=== PATIENT | female | born 1965 | race Caucasian/White ===

== ENCOUNTER 2025-06-06 15:30 | Inpatient (IN) | payer MEDICAID, SELFPAY ==
[2025-06-06] VITALS (19 sets, daily range): BP systolic 93–141; BP diastolic 43–122; BMI 32.0; BMI 31.6
[2025-06-06] MEDS: LR 1000 IV (12:16)
[2025-06-06 12:27] LABS: Hematocrit 20.2 % (37.0-47.0); Hemoglobin 6.5 g/dL (12.0-16.0); Mean Corp Hgb Conc. 32.2 g/dL (33.0-37.0); Mean Corpuscular Volume 112.8 fL (81.0-99.0); Platelet Count 364 10^3/uL (130-400); Red Cell Dist. Width 21.2 % (11.5-14.5)
[2025-06-06 12:46] LABS: ALT (SGPT) 61 U/L (0-35); AST (SGOT) 185 U/L (14-36); Albumin 4.0 g/dl (3.5-5.0); Alkaline Phosphatase 168 U/L (38-126); Blood Urea Nitrogen 54 mg/dl (7-17); Calcium 7.6 mg/dl (8.4-10.2); Carbon Dioxide 18 mmol/L (22-30); Chloride 115 mmol/L (98-107); Estimated Creatinine Clearance 34 ml/min; Glucose 153 mg/dl (70-99); Potassium 4.1 mmol/L (3.5-5.1); Sodium 149 mmol/L (135-145); Total Protein 7.5 g/dl (6.3-8.2); eGFR 32.06
--- NOTE | 2025-06-06 13:09 | ED.GENMED ---
History of Present Illness
General
Chief Complaint: Failure to Thrive
Time Seen by Provider: 06/06/25 11:45
History of Present Illness
History of Present Illness:
59-year-old female with history of stomach ulcers and status post gastric bypass in 1998 presents to the emergency department upon referral from the [facility] on [facility] due to poor functional status. She apparently had a fall yesterday in her
bathroom and laid facedown on the bathroom floor for over 12 hours before being identified. She reports bilateral knee pain but denies any other complaints as a result. Denies abdominal pain, chest pain, or shortness of breath.
Past History
Past History
ED Past Medical History: HTN and Other (Bronchitis)
ED Past Surgical History: Appendectomy, Gynecological (Partial hysterectomy) and Other (gastric bypass)
Social History
Tobacco: Non-smoker
Alcohol: None
Drug: None
Living: with family
Employment: Employed
Family History
Family History: Hypertension
Review of Systems
Review of Systems
Allergies reviewed?: Yes
All Other Systems: ROS reviewed and negative except as documented in HPI and ROS
Phy Exam
Physical Exam
Physical Exam:
GEN: Disheveled and malodorous
HEENT: Oral mucosa moist, no scleral icterus
Cardiac: Regular rate
Lung: No respiratory distress, no tachypnea
Abdomen: Soft, non tender
: Rectal exam with brown heme positive stool in rectal vault
MSK: No gross deformity or injuries
Skin: Good color, no pallor or jaundice, pressure injuries with mild skin breakdown to bilateral knees
Neuro: AO x3, moves all extremities freely
Psych: Calm, cooperative
Course
Orders/Labs/Results
Orders:
Orders
06/06/25 12:10
Electrocardiogram (*1) Urgent
Reason for Study: QTc Monitoring
EKG- Treatment ONCE
Urinalysis Reflex To Culture Urgent
Date Specimen was Collected: 06/06/25
Time Specimen was Collected: 12:42
Lactated Ringers [Lr] 1,000 ml IV BOLUS
06/06/25 12:15
CPK [Creatine Phosphokinase] Urgent
Complete Blood Count/No Diff Urgent
Comprehensive Metabolic Panel Urgent
06/06/25 13:07
Pantoprazole [Protonix IV] 80 mg IV NOW STA
06/06/25 13:08
Blood Bank Products [* Blood Bank Products] Urgent
Blood Bank Products: *Packed RBC Leuko(PRBC's)
Quantity: 2
Transfuse Today: Yes
Reason: Anemia
06/06/25 13:15
Pantoprazole 80 mg/100 ml Nss [Protonix] 80 mg in 100 ml IV Q10H
06/06/25 14:16
Calcium Gluconate 4,000 mg 0.9% Sodium Chloride 250 ml [Nss] 250 ml IV ONCE
06/06/25 14:23
Type+Screen Urgent
06/06/25 14:[address] [CT Head W/o Iv Contrast] Stat
Comment:
Reason For Exam: confusion
Oli Wayne As Directed
Patient's goal temperature:: 97 F
Additional Instructions:: Temperature and skin assessment per unit protocol
CR Chest - 2 Views Stat
Comment:
Reason For Exam: leukocytosis
06/06/25 14:36
Vancomycin [Vancocin] 2,000 mg 0.9% Sodium Chloride 500 ml [Nss] 500 ml IV NOW
06/06/25 14:47
Lactic Acid Stat
Blood Culture Q30M
ERVIN Source: Blood/Venous
Specimen Description:
Blood Culture Q30M
ERVIN Source: Blood/Venous
Specimen Description:
06/06/25 14:51
Admit/Transfer Patient As Directed
Co-Sign Provider:
Level of Care: Inpatient admission
Assign to:: IMU- Intermediate Care
Physician / Group: Babar Garces
Diagnosis: anemia, leukocytosis, hypocalcemia, acute kidney injury, transaminitis, GIB
Reason for Hospitalization: anemia, leukocytosis, hypocalcemia, acute kidney injury, transaminitis, GIB
Expected length of stay greater than two midnights?: Yes
ELOS- Estimated Length of Stay in days: 3
I certify the patient meets the requirements for IP care: Yes
PRN Pain Medication Management As Directed
May give lesser potent ordered pain med per pt: Yes
preference::
Protocol:: Medication orders for pain may be administered in a
manner that supports deferring to patient preference
when the pt is:
- Requesting an ordered lesser potent pain medication.
Least to most potent pain medications are defined
as: acetaminophen < NSAID < tramadol < opioids
(morphine, oxycodone, hydromorphone).
- Requesting a lesser dose of the same medication IF
ORDERED.
- Requesting a less intrusive route of administration
if both routes are prescribed by the provider (PO <
IV).
06/06/25 14:53
Code Status As Directed
Resuscitation Status: Full Code
06/06/25 15:00
Aztreonam [Azactam] 1,000 mg IV NOW STA
Abnormal Lab Results
06/06/25 06/06/25
12:15 14:23
WBC 14.2 H 10^3/uL
(4.8-10.8)
RBC 1.79 L 10^6/uL
(4.20-5.40)
Hgb 6.5 L* g/dL
(12.0-16.0)
Hct 20.2 L* %
(37.0-47.0)
MCV 112.8 H fL
(81.0-99.0)
MCH 36.3 H pg
(27.0-31.0)
MCHC 32.2 L g/dL
(33.0-37.0)
RDW 21.2 H %
(11.5-14.5)
MPV 11.3 H fL
(7.4-10.4)
Sodium 149 H mmol/L
(135-145)
Chloride 115 H mmol/L
(98-107)
Carbon Dioxide 18 L mmol/L
(22-30)
BUN 54 H mg/dl
(7-17)
Creatinine 1.8 H mg/dL
(0.6-1.0)
Glucose 153 H mg/dl
(70-99)
Calcium 7.6 L mg/dl
(8.4-10.2)
Total Bilirubin 2.1 H mg/dl
(0.2-1.3)
AST 185 H U/L
(14-36)
ALT 61 H U/L
(0-35)
Alkaline Phosphatase 168 H U/L
(38-126)
Creatine Kinase 175 H U/L
(30-135)
Crossmatch IS Only See Detail
06/06/25 12:15
06/06/25 12:15
Vital Signs
Initial and Last Documented VS:
Initial Vital Signs
Temp Pulse Resp BP Pulse Ox
94.2 F L 77 18 141/122 100
06/06/25 11:41 06/06/25 11:41 06/06/25 11:41 06/06/25 11:41 06/06/25 11:41
Last Documented Vital Signs
Temp Pulse Resp BP Pulse Ox
94.5 F L 64 15 109/69 100
06/06/25 14:53 06/06/25 14:00 06/06/25 14:00 06/06/25 14:00 06/06/25 14:00
MDM/Problems Addressed
MDM/Problems Addressed:
Patient noted to have severe acute anemia which is likely somewhat contributory to her general weakness and hypothermia. Started on PPIs and ordered for blood transfusion given heme positive stool. She is also noted to have moderate transaminitis
of unclear etiology. Patient will be admitted to the hospitalist service for further management
Comment
Comment:
EKG independently interpreted by me shows a normal sinus rhythm at a rate of 87 with significant patient motion artifact limiting interpretation
*Pulse Oximetry
SaO2: 100
Oxygen Mode of Delivery: Room air
Patient hypoxic: no
*Critical Care Note
Total Time (30-74mins, 75-104mins- exclusive of procedures): 45 minutes
comment:
Critical care time: 45 minutes
Critical care time was exclusive of: Separately billable procedures, treating other patients, and teaching time
Critical care was necessary to treat or prevent imminent or life-threatening deterioration of the following conditions: Acute blood loss anemia
Critical care time spent personally by me on the following activities:
[x] Review of old charts
[x] Obtaining history from patient or surrogate
[x] Ordering and review of the laboratory studies
[ ] Ordering and review of radiographic studies
[x] Ordering and performing treatments and interventions
[x] Patient patient's response to treatment
[x] Development of treatment plan with patient or surrogate
ED Attending Note
-
Portions of this chart may have been created with voice recognition software.� Occasional wrong word or��sound alike� substitutions may have occurred due to the inherent limitations of voice recognition software.
Discharge Plan
Departure
Patient Disposition: Admit
Date of Disposition: 06/06/25
Time of Disposition: 13:56
Presentation/result/management discussed w/ accepting MD/DO: Hospitalist
Discharge Problem:
Adult failure to thrive, Acute upper GI bleed, Acute kidney injury, Transaminitis
Interventions
Interventions:
*Risk Screen - Suicide Last Done: 06/06/25 11:41
*General Assessment Last Done: 06/06/25 11:41
*Neglect/Abuse Screening Last Done: 06/06/25 11:41
*ED- Fall Risk Assessment Last Done: 06/06/25 11:41
[2025-06-06] MEDS: PROTONIX 100 IV ×2 (13:17→23:21)
[2025-06-06] MEDS: PROTONIX IV 80 MG IV (13:17)
--- NOTE | 2025-06-06 14:06 | HPS.HSE ---
Family Physician
-
Family Physician: Raymond Hernandez
Chief Complaint
-
s/p fall
History of Present Illness
Patient is a 59-year-old female with past medical history significant for hypertension, hyperlipidemia and insomnia who presented to [facility] ED for evaluation [facility] r/t poor functional status. It is reported that
patient had fall at home in bathroom and was on floor for over 12 hours before being located. Patient denies any pain at this time. She is AAOx 2-3 with some confusion, she is a poor historian but states she fell yesterday, does not recall any
symptoms prior to fall and thinks it was related to generalized weakness. She stated she was unable to get up off the floor. Patient denies any recent illness, fever, chills, cough, shortness of breath, chest pain, nausea, vomiting, consipation,
diarrhea or urinary symptoms. She denies dark stools or bright red blood in stool.
Medical History
Past Medical History
Past Medical History: Reports Other
Additional Past Medical History:
hypertension
hyperlipidemia
insomnia
Past Surgical History: Reports Other
Additional Past Surgical History:
Appendectomy
Hysterectomy
Gastric bypass
Social History
Tobacco: Non-smoker
Alcohol: Occasional (reports 1-2 drinks (6-8 ounces of vodka) 2-3x per week, last drink 3 days ago)
Drug: None
Living: Alone
Employment: Not Employed
Family History
Family History: Not pertinent
Allergies / Home Medications
Allergies reflects when Allergies were last updated in eReceipts.
Home Medications with original date entered in eReceipts
Allergy/Medication List:
Allergies
Allergy/AdvReac Type Severity Reaction Status Date / Time
hydrocodone bitartrate (From Allergy Itching Verified 06/06/25 11:41
Vicodin)
latex (Latex) Allergy Blisters Verified 06/06/25 11:41
rash
itching
swelling
morphine (Morphine) Allergy Itching Verified 06/06/25 11:41
penicillin G (Penicillin G) Allergy rash Verified 06/06/25 11:41
swelling
itching
bee stings Allergy swells up Uncoded 06/06/25 11:41
Home Medications
losartan 100 mg-hydrochlorothiazide 12.5 mg tablet 1 tab PO HS Blood Pressure 06/17/23
Review of Systems
-
History Source: Patient
Constitutional: Denies Fever or Chills
EENT: Denies Sore Throat
Respiratory: Denies Cough or Trouble Breathing
Cardiac: Denies Chest Pain, Diaphoresis, Palpitations or Syncope
Abdomen/GI: Denies Abdominal Pain, Nausea, Vomiting, Diarrhea or Constipated
: Denies Dysuria, Frequency, Incontinence, Difficulty Voiding or Urgency
Musculoskeletal: Reports Other (generalized weakness); Denies Joint Pain, Joint Swelling or Edema
Skin: Denies Rash
Neurological: Reports Weakness; Denies Dizzy, Headache or Numbness
Endocrine: Reports No Symptoms
Hematologic/Lymphatic: Reports No Symptoms
Psych: Reports Calm
Physical Exam
Vital Signs
Vital Signs
Temp Pulse Resp BP Pulse Ox
94.2 F L 77 18 141/122 100
06/06/25 11:41 06/06/25 11:41 06/06/25 11:41 06/06/25 11:41 06/06/25 13:09
Physical Exam
General: No Apparent Distress, Comfortable, Conversant and Obese
HEENT: NormoCephalic, Moist mucous membranes and Atraumatic
Respiratory: Clear; No Non Labored Respirations
Cardiac: S1/S2 and Regular Rhythm; No Murmur, Rub or Gallop
Breast: Deferred by me
GI: Soft, Non Tender, Non Distended and Normal Bowel Sounds; No Organomegaly
Rectal: Hem Positive (hemeoccult completed in ED ) and Deferred by Provider
Genito-urinary: Deferred by me
Musculoskeletal: No Clubbing, No Cyanosis and No Edema
Skin: Warm and Other (pale)
Neuro: Awake and Nonfocal/grossly intact
Hematologic/Lymphatic: No Lymphadenopathy
Psych: Calm
Laboratory Results
-
06/06/25 12:15
06/06/25 12:15
Laboratory Results
Total Bilirubin 2.1 mg/dl (0.2-1.3) H 06/06/25 12:15
AST 185 U/L (14-36) H 06/06/25 12:15
ALT 61 U/L (0-35) H 06/06/25 12:15
Alkaline Phosphatase 168 U/L (38-126) H 06/06/25 12:15
Data Reviewed
-
Medical Tests (Nuc Med, Echo, EKG etc): Report Reviewed by me (EKG: NORMAL SINUS RHYTHM PROLONGED QT)
Lab Data: Labs Reviewed by me (WBC 14.2, hgb 6.5, hct 20.2, Na+ 149, HCO3 18, BUN 54, Creat 1.8, Ca+ 7.6, Tot Bili 2.1, AST 185, ALT 61, Alk Phos 168, CK 175)
Impression/Plan
-
IMPRESSION/PLAN:
#anemia likely 2/2 GIB
hgb 6.5, hct 20.2, CK 175
EKG: NORMAL SINUS RHYTHM
PROLONGED QT
- Admit to IMU
- Consult GI
- blood consent obtained in ED, scanned to chart
- 2 units PRBCs
- trend h/h
- NPO
- IVF NSS 100cc/hr
#acute kidney injury
Na+ 149, HCO3 18, BUN 54, Creat 1.8
- IVF and blood products
- trend BMP
#hypocalcemia
Ca+ 7.6
- replete
- trend BMP
#transaminitis
Tot Bili 2.1, AST 185, ALT 61, Alk Phos 168
- trend LFTs
#leukocytosis
WBC 14.2
Lactic: pending
UA: pending
Blood Cx: pending
CXR: pending
- start empiric antibiotic Zosyn
#hypothermia
- renny hugger
#gait dysfunction, weakness, fall
- consult PT
- fall precautions
#hypertension
- hold losartan-HCTZ in setting LIAM
Code status: full code
DVT prophylaxis: SCDs
--- NOTE | 2025-06-06 14:10 | W.PN.UPDATE ---
Addendum entered and electronically signed by Babar Garces MD 06/07/25 08:48:
UA
06/07/25
00:00
Urine Clarity Clear
Urine Nitrite (Reflex) Negative
Urine WBC (Reflex) 0-2
CXR:No acute cardiopulmonary process.
Original Note:
Update Note
Progress Note Update
This note serves as an addendum to the H&P by prescription clerk lenses PATRICK�
Haritha John
HPI
59F HX HTN, HX stomach ulcers and status post gastric bypass in 1998 seen at ER
- referral from the [facility] on [facility] due to poor functional status.
- had a fall yesterday in her bathroom and laid facedown on the bathroom floor for over 12 hours before being identified.
- reports bilateral knee pain but denies any other complaints as a result.
- Denies abdominal pain, chest pain, or shortness of breath.
Relevant VS
06/06/25
11:41
Temp 94.2 F L
Pulse 77
Resp Rate 18
Blood pressure 141/122
SaO2 100
Oxygen Mode of Delivery Room air
PE
Obese BMI 32 with slow cogntive speed
Gen: looks tired
HEENT: anicteric
Neck: supple
Lungs: CTA
Cor: RRR S1 S2
Abdomen:�obese and benign
NARROW GAUGE BRAKEMAN: slow cognitive speed by NFND
MS: no edema
Psych: apprpriate
Relevant Data
06/17/23 06/06/25
10:42 12:15
WBC 14.2 H
Hgb 14.2 6.5 L*
Hct 40.6 20.2 L*
MCV 102.5 H 112.8 H
Plt Count 364
Sodium 149 H
Chloride 115 H
Carbon Dioxide 18 L
BUN 54 H
Creatinine 1.8 H
eGFR 32.06
Calcium 7.6 L
06/17/23 06/06/25
10:42 12:15
Total Bilirubin 0.7 2.1 H
AST 50 H 185 H
ALT 38 H 61 H
Alkaline Phosphatase 66 168 H
Creatine Kinase 175 H
Last hospitalist admission:
ASSESSMENT & PLAN
Fall and found down
Hypothermic - prolonged time on the floor minimally elevated CPKs
Leucocytosis
SIRS picture - eval for sepsis and acute infective origins
Acute anemia presumed ACBLA
HoB POS brown stool presumed GIB
Renal insufficience - presumed acute
Hypocalcemia
HX Wt loosing GBS surgery with HX
HX Bn HTN on HCTZ and ARB
HX PCN allergy
- Fall precaution
- Bear hugger - warm blanket
- HCT to complete w/u
- CXR, BCx and Pending UA
- check LA
- Empiric IV ABx with vanco and Aztreonam
- T & screened and consented - agree with 2 u of PRBCs
- NPO and IVF
- agree with PPI gtt
- Hold Losartan and HCTZ - trenc Cr
- Correct Calcium
- Consult: GI, PT
DVT Px: SCD
Full Code
IMU
[2025-06-06] MEDS: CALCIUM GLUCONATE 290 MG IV (15:34)
[2025-06-06] MEDS: VANCOCIN 540 MG IV (15:34)
[2025-06-06] MEDS: NSS 1000 IV (17:05)
--- NOTE | 2025-06-06 18:45 | PTCARENOTE ---
Received patient from ED. Patient alert and oriented, drowsy but arousable. Able to answer all questions without difficulty. IV antibiotics and protonix drip infusing as ordered. PRBC's transfusing as ordered for hemoglobin 6.5. VS stable, oral
temperature 97.6. Pulse ox 100% RA. SR on monitor. Patient has scattered scab taylor, bruises and abrasions throughout her body. Will monitor.
[2025-06-06] MEDS: ZOSYN 50 IV (18:46)
--- NOTE | 2025-06-06 23:55 | PTCARENOTE ---
second unit PRBC transfusion completed @23:50.
[2025-06-07] VITALS (18 sets, daily range): BP systolic 89–134; BP diastolic 18–83; PULSE 66–89; O2SAT 98–99; BMI 31.6
[2025-06-07] MEDS: ZOSYN 50 IV ×4 (00:01→17:53)
[2025-06-07 00:09] LABS: Urine Character Clear (Clear)
[2025-06-07 01:42] LABS: Urine Red Blood Cell 0-2 /HPF (0-2); Urine Squamous Cell 16-20 /LPF (Few); Urine White Cell 0-2 /HPF (0-5)
[2025-06-07 03:34] LABS: Hematocrit 26.1 % (37.0-47.0); Hemoglobin 8.7 g/dL (12.0-16.0); Mean Corp Hgb Conc. 33.3 g/dL (33.0-37.0); Mean Corpuscular Volume 95.6 fL (81.0-99.0); Platelet Count 148 10^3/uL (130-400); Red Cell Dist. Width 25.3 % (11.5-14.5)
[2025-06-07 03:55] LABS: ALT (SGPT) 53 U/L (0-35); AST (SGOT) 130 U/L (14-36); Albumin 3.1 g/dl (3.5-5.0); Alkaline Phosphatase 125 U/L (38-126); Blood Urea Nitrogen 48 mg/dl (7-17); Calcium 8.1 mg/dl (8.4-10.2); Carbon Dioxide 19 mmol/L (22-30); Chloride 120 mmol/L (98-107); Estimated Creatinine Clearance 41 ml/min; Glucose 102 mg/dl (70-99); Potassium 3.9 mmol/L (3.5-5.1); Sodium 150 mmol/L (135-145); Total Protein 6.0 g/dl (6.3-8.2); eGFR 39.89
--- NOTE | 2025-06-07 05:31 | W.PN.UPDATE ---
Update Note
Progress Note Update
NA level is 150 this am previously 149, patient currently on NSS 100cc/hr for LIAM, will change IVF to 0.45% 120cc/hr and will repeat bmp in few hours.
[2025-06-07] MEDS: 0.45%NACL 1000 IV (06:10)
--- NOTE | 2025-06-07 06:49 | CON.GI ---
Addendum entered and electronically signed by Eddie Lock MD 06/07/25 16:08:
The patient was seen and examined by me independently in collaboration with the nurse practitioner.
Past medical history/social history/medications/allergies/family history reviewed.
Lab data and imaging data reviewed.
59-year-old female past medical history of gastric bypass in 1998, gastric ulcers presenting with poor functional status found to be down the ground for 12 hours with bilateral knee pain. She is a poor historian and told me her gastric bypass she
thought was 2 years ago. She states he alcohol use is only drinks 1-2 drinks a day a few times a week but then on questioning states 'I could really use a drink now' because of how long has been in the hospital but she was just admitted yesterday.
Also according to hospitalist note, patient was found to have multiple empty bottles of vodka. She denies any GI complaints to me although does states she has not had a bowel movement in 4 days.
On admission, lab work significant for leukocytosis to 14.2, hemoglobin was 6.5 with MCV 112 with iron studies with elevated iron saturation at 90, ferritin 3240, TIBC 186, folic acid 1.8, vitamin B12 886 platelets initially 364 with drop to 148,
creatinine 1.8, total bilirubin 2.1, direct bilirubin 1.2, AST 185, ALT 61, CK 175, Na 150. Chest x-ray and head CT were negative, brown heme positive stool in the ER. She was also found to have temps as low as 94.5, blood pressure in the 90s,
concerned for possible infection although her lactic acid was normal.
In regards to her liver enzymes, the pattern of her AST to ALT to the 1 is consistent with alcohol use. I did discuss this with the patient. I discussed the importance of cessation of alcohol. She may have an element of acute alcoholic hepatitis
given her elevated bilirubin and coags have been ordered for the morning. This could also explain her leukocytosis as currently we have no source of infection to explain it. I will also order an ultrasound in the morning to look for any signs of
cirrhosis.
Her anemia seems to be multifactorial. Her folic acid is very low and I have ordered repletion for it. Her iron studies are more consistent with iron overload which I suspect is related to alcohol use but we will need to get an hemochromatosis
gene checked outpatient. She did have heme positive stool in the ER. She ultimately would benefit from an upper endoscopy and colonoscopy inpatient versus outpatient pending clinical status. I discussed with patient upper endoscopy and
colonoscopy and she would be agreeable. Risk, alternatives, benefits reviewed with patient risks including but not limited to bleeding, infection, perforation. However, prior to proceeding to upper endoscopy and colonoscopy given that this is not
urgent would like her sodium to be corrected and follow-up blood culture with concern of infection. We will allow her to eat today with clear liquid diet tomorrow in case procedures are pursued on Thursday. Continue IV PPI twice daily in the
interim. Etiology for possible GI source include but not limited to malabsorption given history of gastric bypass, AVM, anastomotic ulcer, malignancy.
Patient also has not had a bowel movement in 4 days. I will get an x-ray and give MiraLAX 68 g today.
Other issues include acute kidney injury, traumatic rhabdomyolysis, hypocalcemia, gait dysfunction with fall with plan to consult PT.
Addendum entered and electronically signed by HOLA Burkett 06/07/25 13:26:
correction to below noted hypernatremia not hyponatremia
Original Note:
Consultation
-
Date/Time Consultation Requested: 06/06/25 1645
Date/Time Consultation Performed: 06/07/25 0930
Requesting Provider: HOLA Raymond
Performing Provider: HOLA Rivera, Mariella Lock MD
Reason for Consultation: anemia
Medical History
Chief Complaint / HPI
Chief Complaint: weakness
History of Present Illness:
Pt is a 59yo with hx gastric ulcers, HTN, hyperlipidemia, insomnia, osteoarthritis, sciatica, allergic rhinitis, varicose veins, covid, B12 deficiency, prior gastric bypass 1998, app, and partial hysterectomy presents from [facility]
with poor functional status. She was noted with fall and was down of floor for 12 hours with b/l knee pain. On admission noted with WBC 14,200, hbg 6.5 with MCV 112.8, platelets 364 with drop to 148, Na 149, BUN 54, creat 1.8, glucose 153, bili
2.1, AST 185, ALT 61, alk phos 168. CXR and HCT neg for acute findings. Brown heme + stool in ER.
In review with patient she admits to NSAID use with several doses per week with some appetite and wt loss over time. She also admits to ETOH use with 2 drinks about 2-3 times per week and heavier ETOH use til 2 years ago. She otherwise
any GI symptoms of odynophagia, dysphagia, GERD, nausea, vomiting, abdominal pain, diarrhea, constipation, blood or black in stool.
EGD 06/07/2008 [facility]- normal esophagus, patent Racheal en Y gastrojejunostomy, mild gastritis in gastric remnant normal jejunum
Pt unsure about prior colonoscopy in past recommended Cologuard not completed
Past Medical History
Past Medical History: HTN, Hypercholesterolemia and Other (gastric ulcers, insomnia, osteoarthritis, sciatica, allergic rhinitis, varicose veins, covid, B12 deficiency )
Past Surgical History: Appendectomy, Gynecological (partial hysterectomy) and Other (gastric bypass 1998)
Social History
Tobacco: Former Smoker
Alcohol: Occasional (2 drinks 2-3 times per week with heavier ETOH 2 years ago )
Drug: None
Living: Alone
Employment: Disabled
Family History
Family History: Other (no family hx GI issues or problems)
Allergies / Home Medications
Allergy/AdvReac Type Severity Reaction Status Date / Time
hydrocodone bitartrate (From Allergy Itching Verified 06/06/25 11:41
Vicodin)
latex (Latex) Allergy Blisters Verified 06/06/25 11:41
rash
itching
swelling
morphine (Morphine) Allergy Itching Verified 06/06/25 11:41
penicillin G (Penicillin G) Allergy rash Verified 06/06/25 15:41
swelling
itching at
30years
old,
tolerates
amoxicillin
bee stings Allergy swells up Uncoded 06/06/25 11:41
�Medication �Instructions �Recorded
losartan 100 1 tab PO HS Blood Pressure 06/17/23
mg-hydrochlorothiazide 12.5 mg
tablet
Review of Systems
-
History Source: Patient
Constitutional: Reports Weight Loss and Other (decreased appetite )
EENT: Reports No Symptoms
Respiratory: Reports No Symptoms
Cardiac: Reports No Symptoms
Abdomen/GI: Reports No Symptoms
: Reports No Symptoms
Musculoskeletal: Reports Joint Pain
Skin: Reports No Symptoms
Neurological: Reports Weakness (with fall prior to admission )
Endocrine: Reports No Symptoms
Hematologic/Lymphatic: Reports No Symptoms
Vital Signs
Temp Pulse Resp BP Pulse Ox
97.0 F 64 13 134/63 100
06/07/25 03:00 06/07/25 06:00 06/07/25 06:00 06/07/25 06:00 06/07/25 06:00
Physical Exam
Exam
General: Other (pale appearing )
HEENT: Normocephalic and Other (minimal jaundice )
Respiratory: Clear
Cardiac: Regular Rhythm
GI: Soft, Non Tender and Non Distended
Musculoskeletal: No Clubbing and No Cyanosis
Skin: Warm and Dry
Neuro: Awake, Alert and AO x 3
Psych: Calm
Results
WBC 7.3 10^3/uL (4.8-10.8) 06/07/25 02:45
Hgb 8.7 g/dL (12.0-16.0) L D 06/07/25 02:45
Hgb Cancelled 06/07/25 02:45
Hct 26.1 % (37.0-47.0) L 06/07/25 02:45
Hct Cancelled 06/07/25 02:45
MCV 95.6 fL (81.0-99.0) D 06/07/25 02:45
Plt Count 148 10^3/uL (130-400) D 06/07/25 02:45
Sodium 150 mmol/L (135-145) H 06/07/25 02:45
Potassium 3.9 mmol/L (3.5-5.1) 06/07/25 02:45
Chloride 120 mmol/L (98-107) H 06/07/25 02:45
Carbon Dioxide 19 mmol/L (22-30) L 06/07/25 02:45
BUN 48 mg/dl (7-17) H 06/07/25 02:45
Creatinine 1.5 mg/dL (0.6-1.0) H 06/07/25 02:45
Calcium 8.1 mg/dl (8.4-10.2) L 06/07/25 02:45
Total Bilirubin 2.0 mg/dl (0.2-1.3) H 06/07/25 02:45
AST 130 U/L (14-36) H 06/07/25 02:45
ALT 53 U/L (0-35) H 06/07/25 02:45
Alkaline Phosphatase 125 U/L (38-126) 06/07/25 02:45
Diagnostic Image Results:
06/06- CXR no acute findings
06/06- HCT no acute intracranial findings
Prior GI Procedures:
EGD 06/07/2008 [facility]- normal esophagus, patent Racheal en Y gastrojejunostomy, mild gastritis in gastric remnant normal jejunum
Colonoscopy: ? in past no records found
Assessment / Plan
-
Pt is a 59yo with hx gastric ulcers, HTN, hyperlipidemia, insomnia, osteoarthritis, sciatica, allergic rhinitis, varicose veins, covid, B12 deficiency, prior gastric bypass 1998, app, and partial hysterectomy [facility]
with poor functional status. She was noted with fall and was down of floor for 12 hours with b/l knee pain. On admission noted with WBC 14,200, hbg 6.5 with MCV 112.8, platelets 364 with drop to 148, Na 149, BUN 54, creat 1.8, glucose 153, bili
2.1, AST 185, ALT 61, alk phos 168 and CK 175. CXR and HCT neg for acute findings. Brown heme + stool in ER.
EGD 06/07/2008 [facility]- normal esophagus, patent Racheal en Y gastrojejunostomy, mild gastritis in gastric remnant normal jejunum
-anemia with macrocytosis
-leukocytosis
-hyponatremia
-hx gastric bypass/ prior gastric ulcer
-s/p fall with mild CK elevated
-increased transaminases
-LIAM on admission
-B12 deficiency
other med problems:
- HTN
-hyperlipidemia
-insomnia
-osteoarthritis
-sciatica
-allergic rhinitis
-varicose veins
-covid
- appe
-partial hysterectomy
PLAN:etiology of anemia related to PUD, anastomotic ulcer or malabsorption with hx gastric bypass, known B12 deficiency, gastritis, renal related with LIAM on admission, vs other
pt also with elevated transaminase related to ETOH use vs other
s/p 2 units transfused hbg up to 8.7
no signs of aggressive GI bleeding with brown stool in ER
Will add iron studies, B12, folate to ER labs
transition PPI to BID
ok for clear diet
t/c Eventual EGD and colon for anemia work up - pt considering if she would want to proceed
await culture data
cont to corrrect Na per medical team
will need medical optimization prior to proceeding with hypernatremia , leukocytosis with infectious work up etc,
discussed NSAID and ETOH abstience
-
-
Thank you for consultation and allowing me to participate in the patient's care. Please call the customer relations representative GI physician during the after hours with any questions or concerns.
[2025-06-07] MEDS: NSS IV (08:17)
[2025-06-07] MEDS: D5W 1000 IV ×2 (08:24→19:34)
[2025-06-07] MEDS: PROTONIX 100 IV (08:27)
[2025-06-07] MEDS: THIAMINE INJECTION 255 MG IV ×2 (08:29→15:17)
[2025-06-07 08:40] LABS: Iron 168 ug/dl (37-170)
[2025-06-07 08:48] LABS: Magnesium 1.7 mg/dl (1.6-2.3)
[2025-06-07 08:49] LABS: Total Iron Binding Capacity 186 ug/dl (265-497)
--- NOTE | 2025-06-07 09:06 | PTCARENOTE ---
Patient oriented to self, sometimes oriented to place. At times forgets she is at [facility]. Intermittent confusion. VS stable. SR/SB on monitor. IV fluids changed to D5W@125MLS/HR. Protonix drip infusing as ordered. Remains NPO
except for meds.
--- NOTE | 2025-06-07 10:13 | W.PN.HOSP.TC ---
Today's Communication/Plan
-
.
Assessment / Plan
Assessment / Plan
Physical Exam
General: No Apparent Distress, Comfortable, Conversant, chronically ill looking, and Obese
HEENT: Normocephalic, Moist mucous membranes and Atraumatic
Respiratory: Clear; No Non Labored Respirations
Cardiac: S1/S2 and Regular Rhythm; No Murmur, Rub or Gallop
Breast: Deferred by me
GI: Soft, Non Tender, Non Distended and Normal Bowel Sounds;
Rectal: Hem Positive (Hemoccult completed in ED )
Genito-urinary: No hematuria
Musculoskeletal: No Clubbing, No Cyanosis and No Edema
Neuro: Awake oriented to self and surroundings, and Nonfocal/grossly intact
Psych: Calm
A/p:
# Acute blood loss anemia
No active GI bleeding
DDX: includes gastritis, lower GI blood loss, others
s/p 2 units of RBCs
Check folate, Vitamin B12
c/w PPI therapy
Appreciate GI input
# medical non - compliance
Lives alone, poor OP care, concern about living situation
consulted director of casework services. PT/OT
#acute kidney injury
c/w iVF
Add Bladder scan
#hypocalcemia
Check Mg level =, 1.7, will replace
#transaminitis
Admits to alcohol intake
No abd pain
# Alcohol use disorder
Initially, patient denied alcohol intake but later said she would drink adult beverages including vodka/ wine 3-4 times a day. EMT reported empty vodka bottles at home.
I am not sure if she is forthcoming regarding her alcohol intake and if it is related to her fall or deconditioning. For now we will try to monitor for alcohol withdrawal. I will start her on high-dose thiamine to be on the safe side and as needed
Ativan for withdrawal/anxiety
# Traumatic rhabdomyolysis
Continue with hydration. Pain control as needed. Kidney functions improving
# Collection of leukocytosis, low blood pressure/hypotension, hypothermia, seemed sepsis/septic shock on admission.
leukocytosis, resolved
Lactic: Negative
UA: pending
Blood Cx: pending
CXR: No acute issues
- started empiric antibiotic Zosyn
#gait dysfunction, weakness, fall
- consult PT
- fall precautions
#hypertension
- hold losartan-HCTZ in setting LIAM
Code status: full code
DVT prophylaxis: SCDs
Total time spent to see the patient, examine the patient, review data lab result, discuss treatment plan with patient, nursing staff around 55 minutes
Anticipated Discharge: > 48 hours
Subjective/Interval History
-
Date of Service: June 07, 2025
She feels better
She denies chest pain or sob, abdominal pain
Objective Data
-
Labs:
Laboratory Results
06/07/25 06/07/25 06/07/25
02:45 02:45 02:45
WBC 7.3
Hgb Cancelled 8.7 L D
Hct Cancelled 26.1 L
Plt Count 148 D
Sodium 150 H
Potassium 3.9
Chloride 120 H
Carbon Dioxide 19 L
BUN 48 H
Creatinine 1.5 H
Glucose 102 H
Calcium 8.1 L
Total Bilirubin 2.0 H
AST 130 H
ALT 53 H
Alkaline Phosphatase 125
06/07/25 06/07/25
12:00 14:00
WBC
Hgb
Hct
Plt Count
Sodium Cancelled Pending
Potassium Cancelled Pending
Chloride Cancelled Pending
Carbon Dioxide Cancelled Pending
BUN Cancelled Pending
Creatinine Cancelled Pending
Glucose Cancelled Pending
Calcium Cancelled Pending
Total Bilirubin
AST
ALT
Alkaline Phosphatase
Vital Signs:
Vital Signs
Temp Pulse Resp BP Pulse Ox
97.2 F 60 13 121/69 97
06/07/25 07:10 06/07/25 08:00 06/07/25 08:00 06/07/25 08:00 06/07/25 08:00
I&O
06/06/25 06/07/25 06/08/25
06:59 06:59 06:59
Intake Total 860 / 860
Balance 860 / 860
[2025-06-07 11:11] LABS: Folate 1.8 ng/ml (2.76-20)
[2025-06-07 11:19] LABS: Ferritin 3240.0 ng/ml (11.1-264.0)
[2025-06-07] MEDS: MAGNESIUM SULFATE 100 IV (11:40)
[2025-06-07 12:14] LABS: Vitamin B12 886 pg/ml (239-931)
--- NOTE | 2025-06-07 13:39 | CM ---
Addendum entered by Jennifer Hernández 06/07/25 13:52:
Per patient request, Advance Directive information has been explained and provided to patient.
Original Note:
Initial assessment completed with patient who lives alone and rents a 2 story home plus basement with B/B on , no 1/2 bath on ,1 step to enter. GENERAL ACTIVITIES THERAPIST patient states she was independent in ADL's and ambulation, drives. No DME or in-home
services. No HC-POA. No psychiatric hospitalizations. No VA benefits. PCP is Dr. Raymond Hernandez. Pharmacy is [facility] on [address] in [place]. Discharge POC: TBD. Awaiting therapy evaluation. Per ER records, patient was sent to the ER by [facility] for concerns with patient's poor functional ability and failure to thrive. Patient has claimed she is independent and says she was unaware [facility] was involved.
[2025-06-07] MEDS: MIRALAX 68 GRAMS PO (18:06)
[2025-06-07] MEDS: FOLVITE 1 MG PO (18:07)
[2025-06-07] MEDS: PROTONIX IV 40 MG IV (20:08)
[2025-06-07] MEDS: NSS (PRESERVATIVE FREE) 10 ML IV (20:08)
[2025-06-07 20:09] LABS: Blood Urea Nitrogen 41 mg/dl (7-17); Calcium 7.4 mg/dl (8.4-10.2); Carbon Dioxide 18 mmol/L (22-30); Chloride 116 mmol/L (98-107); Estimated Creatinine Clearance 41 ml/min; Glucose 110 mg/dl (70-99); Potassium 3.6 mmol/L (3.5-5.1); Sodium 143 mmol/L (135-145); eGFR 39.89
[2025-06-08] VITALS (11 sets, daily range): BP systolic 104–154; BP diastolic 54–84
[2025-06-08] MEDS: ZOSYN 50 IV ×5 (00:31→23:33)
[2025-06-08] MEDS: THIAMINE INJECTION 255 MG IV ×4 (00:32→23:33)
[2025-06-08] MEDS: D5W 1000 IV (04:12)
--- NOTE | 2025-06-08 04:15 | PTCARENOTE ---
Pt with multiple small loose bowel movements overnight. Obstruction XR series showed minimal stool burden and nonobstructive bowel gas pattern. Abdomen round/obese, soft/nontender. VSS. Care ongoing.
[2025-06-08 05:36] LABS: Hematocrit 22.9 % (37.0-47.0); Hemoglobin 7.8 g/dL (12.0-16.0); Mean Corp Hgb Conc. 34.1 g/dL (33.0-37.0); Mean Corpuscular Volume 95.4 fL (81.0-99.0); Platelet Count 148 10^3/uL (130-400); Red Cell Dist. Width 25.9 % (11.5-14.5)
[2025-06-08 05:49] LABS: INR 1.20; PT 15.7 Sec (11.4-14.6)
[2025-06-08 05:56] LABS: ALT (SGPT) 40 U/L (0-35); AST (SGOT) 99 U/L (14-36); Albumin 2.8 g/dl (3.5-5.0); Alkaline Phosphatase 117 U/L (38-126); Total Protein 5.5 g/dl (6.3-8.2)
[2025-06-08] MEDS: NSS (PRESERVATIVE FREE) 10 ML IV ×2 (08:30→19:26)
[2025-06-08] MEDS: PROTONIX IV 40 MG IV ×2 (08:30→19:26)
[2025-06-08] MEDS: FOLVITE 1 MG PO (08:30)
--- NOTE | 2025-06-08 08:39 | W.PN.GI.CBS2 ---
Today's Communication / Plan
-
US today, possible egd/colo tomorrow pending BMP
Assessment / Plan
-
59-year-old female past medical history of gastric bypass in 1998, gastric ulcers presenting with poor functional status found to be down the ground for 12 hours with bilateral knee pain. + EtOH use (suspect more than patient states).
Found to have mild acute alcoholic hepatitis (DF today 11), brown stool hemoccult positive with anemia likely multifactorial with iron studies c/w iron overload and low folic acid, also history of anastomotic ulcer with gastric bypass, low temps but
work up for infection negative, LIAM, rhabdo, hypoCa, hyperNa.
Recommendations:
- Continue folic acid and thiamine
- Monitor EtOH withdrawal
- Daily labs (CBC, BMP, LFTs, coags)
- US to evaluate liver for possible cirrhosis
- Likely EGD/colo tomorrow pending BMP
- Continue IV PPI BID
Will need eventual outpatient follow up
Subjective
Subjective
Date of Service: June 08, 2025
Brown stool
No events overnight
Objective
Data Reviewed
Laboratory Data:
Laboratory Results
06/08/25 05:13
Laboratory Results
PT 15.7 Sec (11.4-14.6) H 06/08/25 05:13
INR 1.20 06/08/25 05:13
Magnesium 1.7 mg/dl (1.6-2.3) 06/07/25 02:45
Total Bilirubin 1.4 mg/dl (0.2-1.3) H 06/08/25 05:13
AST 99 U/L (14-36) H 06/08/25 05:13
ALT 40 U/L (0-35) H 06/08/25 05:13
Alkaline Phosphatase 117 U/L (38-126) 06/08/25 05:13
Vital Signs and I&O:
Vital Signs
Temp Pulse Resp BP Pulse Ox
97.5 F 71 14 117/81 98
06/08/25 07:15 06/08/25 04:00 06/08/25 04:00 06/08/25 04:00 06/07/25 22:35
I&O
06/07/25 06/08/25 06/09/25
06:59 06:59 06:59
Intake Total 860 / 860 4805 / 4805
Output Total 1350 / 1350
Balance 860 / 860 3455 / 3455
Physical Exam
Physical Exam
GI: Non Distended and Non Tender
--- NOTE | 2025-06-08 09:33 | W.PN.HOSP.TC ---
Addendum entered and electronically signed by Dao Valera MD 06/08/25 12:07:
Addendum
Hypokalemia
Original Note:
Today's Communication/Plan
-
Technically, I prefer hemoglobin around 8 unless contraindication as portal hypertension/liver cirrhosis. Will follow-up with ultrasound.
Still borderline hypotensive and unable to introduce blood pressure medications, continue with fall risk precaution.
Await repeat blood culture. Likely contaminant on blood culture even with 2 bottles. Will follow-up with ID recommendations
Luckily, fully oriented and yet no signs of DT
Appreciate ID, nursing and GI help
Will follow
Assessment / Plan
Assessment / Plan
Physical Exam
General: No Apparent Distress, Comfortable, Conversant, chronically ill looking, and Obese
HEENT: Normocephalic, Moist mucous membranes and Atraumatic
Respiratory: Clear; No Non Labored Respirations
Cardiac: S1/S2 and Regular Rhythm; No Murmur, Rub or Gallop
Breast: Deferred by me
GI: Soft, Non Tender, Non Distended and Normal Bowel Sounds;
Rectal: Hem Positive (Hemoccult completed in ED )
Genito-urinary: No hematuria
Musculoskeletal: No Clubbing, No Cyanosis and No Edema
Neuro: Awake oriented to self and surroundings, and Nonfocal/grossly intact
Psych: Calm
A/p:
# Acute blood loss anemia
No active GI bleeding
DDX: includes gastritis, lower GI blood loss, others
s/p 2 units of RBCs,
Low folate
Normal Vitamin B12
c/w PPI therapy
Appreciate GI input
# medical non - compliance
Lives alone, poor OP care, concern about living situation
consulted case coordinator. PT/OT
# Hypernatremia, corrected, stop IVF
# Positive blood culture
Possible contaminant
Repeat blood culture 06/07
Urine culture is pending
Appreciate ID help
#acute kidney injury
Resolved, can stop IVF
Added Bladder scan
#hypocalcemia
Hypomagnesemia
#transaminitis
US is ordered, possible Cirrhosis.
No signs of DT,
Admits to alcohol intake
No abd pain
# Alcohol use disorder
Initially, patient denied alcohol intake but later said she would drink adult beverages including vodka/ wine 3-4 times a day. EMT reported empty vodka bottles at home.
I am not sure if she is forthcoming regarding her alcohol intake and if it is related to her fall or deconditioning. For now we will try to monitor for alcohol withdrawal, ( No signs yet) . c/w high-dose thiamine to be on the safe side and as
needed Ativan for withdrawal/anxiety
# Traumatic rhabdomyolysis
Continue with hydration. Pain control as needed. Kidney functions improving
# Collection of leukocytosis, low blood pressure/hypotension, hypothermia, seemed sepsis/septic shock on admission.
leukocytosis, resolved
Lactic: Negative
UA: pending
Blood Cx: pending
CXR: No acute issues
- started empiric antibiotic Zosyn
#gait dysfunction, weakness, fall
- consulted PT
- fall precautions
#hypertension
Still soft BP but not low
- holding losartan-HCTZ in setting LIAM
Code status: full code
DVT prophylaxis: SCDs
Total time spent to see the patient, examine the patient, review data lab result, discuss treatment plan with patient, nursing staff around 55 minutes
Anticipated Discharge: > 48 hours
Subjective/Interval History
-
Date of Service: June 08, 2025
Objective Data
-
Labs:
Laboratory Results
06/08/25 06/08/25
05:13 06:53
WBC 8.9
Hgb 7.8 L
Hct 22.9 L
Plt Count 148
PT 15.7 H
INR 1.20
Sodium Pending
Potassium Pending
Chloride Pending
Carbon Dioxide Pending
BUN Pending
Creatinine Pending
Glucose Pending
Calcium Pending
Total Bilirubin 1.4 H
AST 99 H
ALT 40 H
Alkaline Phosphatase 117
Vital Signs:
Vital Signs
Temp Pulse Resp BP Pulse Ox
97.5 F 71 14 117/81 98
06/08/25 07:15 06/08/25 04:00 06/08/25 04:00 06/08/25 04:00 06/07/25 22:35
I&O
06/07/25 06/08/25 06/09/25
06:59 06:59 06:59
Intake Total 860 / 860 4805 / 4805
Output Total 1350 / 1350
Balance 860 / 860 3455 / 3455
--- NOTE | 2025-06-08 09:45 | PTCARENOTE ---
Addendum entered by Lyndsey Duncan 06/08/25 12:34:
Order received to cancel unit of blood.
Original Note:
Pt ordered 1U PRBC. Per Dr. Valera- hold unit at this time. Dr. Lock and Dr. Valera to discuss and determine if unit needs to be transfused.
[2025-06-08 10:55] LABS: Blood Urea Nitrogen 32 mg/dl (7-17); Calcium 7.1 mg/dl (8.4-10.2); Carbon Dioxide 22 mmol/L (22-30); Chloride 115 mmol/L (98-107); Estimated Creatinine Clearance 41 ml/min; Glucose 79 mg/dl (70-99); Potassium 2.9 mmol/L (3.5-5.1); Sodium 142 mmol/L (135-145); eGFR 39.89
--- NOTE | 2025-06-08 12:01 | CON.ID ---
Consultation
-
Date/Time Consultation Requested: 06/08/25 0653
Date/Time Consultation Performed: 06/08/2025 1202
Requesting Provider: Dr. Valera
Performing Provider: Dr. Mckeon
Reason for Consultation: Bacteremia
Chief Complaint / Past History
History of Present Illness
Tahira Garcia is a 59-year-old female being seen at the request of Dr. Valera in regards to bacteremia. History is obtained from chart review, patient interview.
The patient initially presented to [facility] 06/06/2025 for further evaluation [facility] secondary to the patient's poor functional status. It was noted that the patient had had several falls at
home, and was found on the bathroom floor where she was for approximately 12 hours before being located.
At admission, she initially was placed on empiric antibiotics but these were discontinued fairly quickly. Blood cultures obtained at the time of admission have now been shown to be positive for Staph epidermidis, and Infectious Diseases is asked to
comment upon further antimicrobial therapy.
At present, patient feels weak. Denies fevers or chills. No fevers recorded since admission. Denies pain.
Past History
Additional Past Medical History:
hypertension
hyperlipidemia
insomnia
Additional Past Surgical History:
Appendectomy
Hysterectomy
Gastric bypass
Allergy History:
hydrocodone bitartrate (From Vicodin) Allergy (Verified 06/06/25 11:41)
Itching
latex (Latex) Allergy (Verified 06/06/25 11:41)
Blisters rash itching swelling
morphine (Morphine) Allergy (Verified 06/06/25 11:41)
Itching
penicillin G (Penicillin G) Allergy (Verified 06/06/25 15:41)
rash swelling itching at 30years old, tolerates amoxicillin
bee stings Allergy (Uncoded 06/06/25 11:41)
swells up
Medications Reviewed: Yes
Current Antibiotics:
None
Previously on Zosyn (06/06 - 06/07)
Social History
Tobacco: Non-Smoker
Alcohol: Occasional
Drug: None
Personal: Single
Living: Alone
Employment: Not Employed
Family History
Family History: Not Pertinent
Review of Systems
Vital Signs
Temp Pulse Resp BP Pulse Ox
97.5 F 71 14 117/81 98
06/08/25 07:15 06/08/25 04:00 06/08/25 04:00 06/08/25 04:00 06/07/25 22:35
Physical Exam
Physical Exam
Constitutional: No Acute Distress, Comfortable, Chronically Ill and Non-toxic
Eyes: No Conjunctival Hemorrhage and Sclera Anicteric
Oral: No Thrush and No Ulcers
Cardiovascular: Regular Rate and S1/S2; Negative S3/S4 or Murmur
Pulmonary: Clear and Non Labored; Negative Wheezes or Rales
Gastrointestinal: Soft, Non Tender, Non Distended and Normal Bowel Sounds
Skin: Warm and Dry; Negative Rash
Wound: Other (Left medial knee area; superficial and without significant periwound erythema.)
Neurological: Awake
Psychological: Calm
Lab / Diagnostic Study Results
06/08/25 05:13
06/08/25 10:29
PT 15.7 Sec (11.4-14.6) H 06/08/25 05:13
INR 1.20 06/08/25 05:13
Lactic Acid 1.7 mmol/L (0.7-2.0) 06/06/25 14:47
Ur Squamous Epith Cells 16-20 /LPF (Few) 06/07/25 00:00
Microbiology Results
Micro:
06/07/25 00:00 Urine Culture - Final
Urine No Significant Growth
06/06/25 14:47 Blood Culture - Preliminary
Blood/Venous Staphylococcus epidermidis
Gram Stain - Preliminary
06/06/25 14:47 Blood Culture - Preliminary
Blood/Venous Coagulase neg. staphylococcus
Gram Stain - Preliminary
06/07/25 19:32 Blood Culture - Pending
Blood/Venous
Imaging:
06/29 Abdominal ultrasound: a single gallstone is identified. Sludge filled gallbladder is noted. Gallbladder wall is minimally thickened. No evidence for pericholecystic edema. Please see full dictation for additional detail.
06/07/2025 obstruction series: nonobstructive bowel gas pattern noted. Minimal colonic stool burden.
Assessment / Plan
Bacteremia with Staphylococcus epidermidis (2 separate bottles from admission draws).
- Suspect contaminant
Leukocytosis; resolved
- Suspect reactive
Acute anemia
Transaminitis
Improving
hypertension
hyperlipidemia
insomnia
Recommendations:
Agree with prior discontinuation of antibiotics.
No need to restart antibiotics, as positive blood cultures are likely due to contamination given the recovery of Staphylococcus epidermidis.
Would continue to monitor white count and temperature curve and provide supportive care.
--- NOTE | 2025-06-08 14:00 | W.PN.UPDATE ---
Update Note
Progress Note Update
I discussed with anesthesia. Okay to proceed with EGD and colonoscopy tomorrow as long as potassium is aggressively repleted and calcium is also corrected. I relayed this to Dr. Valera and I put in a repeat hemoglobin and potassium at 4 PM. Goal
hemoglobin should be 7. Ultrasound was done and showed gallstone, sludge filled gallbladder, fatty infiltration of liver, no signs of cirrhosis.
[2025-06-08] MEDS: KCL 270 MEQ IV ×2 (14:05→18:35)
[2025-06-08] MEDS: CALCIUM GLUCONATE 100 IV (16:52)
--- NOTE | 2025-06-08 16:58 | CM ---
Updated Kwaku Saab from [facility] on [facility] on status. Therapy recommended SNF. Discussed with patient. She has no preferences and agreed to CM sending out blanket referrals. Discharge POC: SNF.
--- NOTE | 2025-06-08 17:03 | PTCARENOTE ---
Caring for pt throughout the day. Aox2-3, forgetful. NSR on tele monitor. Sating mid to high 90's on RA. Incontient of urine and multiple bowel movements, mayo care completed. Bladder scanned post void- see intervention. Pt ringing appropriately,
call leiva within reach.
[2025-06-08] MEDS: GAVILAX 238 GM PO (18:09)
[2025-06-08 18:16] LABS: Hemoglobin 7.3 g/dL (12.0-16.0)
[2025-06-08 18:32] LABS: Blood Urea Nitrogen 27 mg/dl (7-17); Calcium 7.9 mg/dl (8.4-10.2); Carbon Dioxide 20 mmol/L (22-30); Chloride 116 mmol/L (98-107); Estimated Creatinine Clearance 41 ml/min; Glucose 81 mg/dl (70-99); Potassium 3.7 mmol/L (3.5-5.1); Sodium 141 mmol/L (135-145); eGFR 39.89
[2025-06-09] VITALS (16 sets, daily range): BP systolic 90–143; BP diastolic 47–123; PULSE 78; O2SAT 100
--- NOTE | 2025-06-09 04:30 | PTCARENOTE ---
Pt maintained SR, SB on CM overnight. Refused bowel prep, however did have frequent liquid stools. Pt sometimes able to request BP, other times incontinent of bowel and bladder. Hygiene care performed frequently. Pt c/o severe pain when blood
pressure cuff cycles, pt frequently removes cuff despite education. Care ongoing.
[2025-06-09] MEDS: ZOSYN 50 IV (06:03)
[2025-06-09 06:25] LABS: INR 1.12; PT 15.0 Sec (11.4-14.6)
[2025-06-09 06:29] LABS: Hematocrit 21.2 % (37.0-47.0); Hemoglobin 7.2 g/dL (12.0-16.0); Mean Corp Hgb Conc. 34.0 g/dL (33.0-37.0); Mean Corpuscular Volume 98.1 fL (81.0-99.0); Platelet Count 130 10^3/uL (130-400); Red Cell Dist. Width 25.3 % (11.5-14.5)
[2025-06-09 06:38] LABS: ALT (SGPT) 43 U/L (0-35); AST (SGOT) 98 U/L (14-36); Albumin 2.6 g/dl (3.5-5.0); Alkaline Phosphatase 106 U/L (38-126); Blood Urea Nitrogen 24 mg/dl (7-17); Calcium 7.6 mg/dl (8.4-10.2); Carbon Dioxide 19 mmol/L (22-30); Chloride 121 mmol/L (98-107); Estimated Creatinine Clearance 44 ml/min; Glucose 73 mg/dl (70-99); Magnesium 1.4 mg/dl (1.6-2.3); Potassium 3.5 mmol/L (3.5-5.1); Sodium 144 mmol/L (135-145); Total Protein 5.2 g/dl (6.3-8.2); eGFR 43.34
--- NOTE | 2025-06-09 07:06 | W.PN.ID1 ---
Date of Service
Date of Service: June 09, 2025
Today's Communication
Sign off.
Assessment / Plan
Bacteremia with Staphylococcus epidermidis (2 separate bottles from admission draws).
- contaminant
Leukocytosis; resolved
- Suspect reactive
Acute anemia
Elevated LFT's
CKD
hypertension
hyperlipidemia
insomnia
Recommendations:
Blood cultures are likely due to contamination given the recovery of Staphylococcus epidermidis; no need to treat.
Cultures otherwise negative. Discontinue further Zosyn.
Continue with supportive care.
Patient for EGD and colonoscopy today.
Nothing further to add from a Infectious Diseases standpoint.
Will see again at your request.
Chief Complaint
-: Bacteremia
Subjective / Review of Systems
Review of Systems: No Fever and No Chills
Vital Signs / Physical Exam
Vital Signs
Vital Signs
Temp Pulse Resp BP Pulse Ox
97.8 F 75 17 124/55 100
06/09/25 03:08 06/09/25 06:05 06/09/25 06:05 06/09/25 06:05 06/09/25 06:05
Physical Exam
Constitutional: No Acute Distress, Comfortable and Non-toxic
Cardiovascular: S1/S2; Negative S3/S4
Pulmonary: Non Labored
Gastrointestinal: Non Distended and Normal Bowel Sounds
Extremities: Edema (Trace); Negative Cyanosis or Erythema
Psychological: Calm
Objective Data
Lab Data
Lab Results
06/09/25 05:58
06/09/25 05:58
PT 15.0 Sec (11.4-14.6) H 06/09/25 05:58
INR 1.12 06/09/25 05:58
Estimated Creat Clear 44 ml/min 06/09/25 05:58
Lactic Acid 1.7 mmol/L (0.7-2.0) 06/06/25 14:47
Total Bilirubin 1.2 mg/dl (0.2-1.3) 06/09/25 05:58
AST 98 U/L (14-36) H 06/09/25 05:58
ALT 43 U/L (0-35) H 06/09/25 05:58
Alkaline Phosphatase 106 U/L (38-126) 06/09/25 05:58
Most recent labs reviewed.
Micro Results:
06/07/25 19:32 Blood Culture - Preliminary
Blood/Venous No Growth in 24 hours- Final report to follow
06/07/25 00:00 Urine Culture - Final
Urine No Significant Growth
06/06/25 14:47 Blood Culture - Preliminary
Blood/Venous Staphylococcus epidermidis
Gram Stain - Preliminary
06/06/25 14:47 Blood Culture - Preliminary
Blood/Venous Coagulase neg. staphylococcus
Gram Stain - Preliminary
Imaging:
06/08/25 Abdominal ultrasound: a single gallstone is identified. Sludge filled gallbladder is noted. Gallbladder wall is minimally thickened. No evidence for pericholecystic edema. Please see full dictation for additional detail.
06/07/2025 obstruction series: nonobstructive bowel gas pattern noted. Minimal colonic stool burden.
[2025-06-09] MEDS: NSS (PRESERVATIVE FREE) 10 ML IV ×2 (08:01→19:43)
[2025-06-09] MEDS: CITROMA 300 ML PO (08:01)
[2025-06-09] MEDS: FOLVITE PO (08:02)
[2025-06-09] MEDS: PROTONIX IV 40 MG IV ×2 (08:02→19:43)
[2025-06-09] MEDS: MAGNESIUM SULFATE 100 IV (08:57)
[2025-06-09] MEDS: FOLVITE 1 MG PO (09:02)
--- NOTE | 2025-06-09 09:19 | W.PN.HOSP.TC ---
Addendum entered and electronically signed by Dao Valera MD 06/09/25 12:23:
Pressure injury stage [Present on admission Sacrum] Stage 1 Stage 1
Original Note:
Today's Communication/Plan
-
One unit of blood
IV magnesium sulfate
Assessment / Plan
Assessment / Plan
Physical Exam
General: No Apparent Distress, Comfortable, Conversant, chronically ill looking, and Obese
HEENT: Normocephalic, Moist mucous membranes and Atraumatic
Respiratory: Clear; No Non Labored Respirations
Cardiac: S1/S2 and Regular Rhythm; No Murmur, Rub or Gallop
Breast: Deferred by me
GI: Soft, Non Tender, Non Distended and Normal Bowel Sounds;
Rectal: Hem Positive (Hemoccult completed in ED )
Genito-urinary: No hematuria
Musculoskeletal: No Clubbing, No Cyanosis and No Edema
Neuro: Awake oriented to self and surroundings, and Nonfocal/grossly intact
Psych: Calm
A/p:
# Acute blood loss anemia
No active GI bleeding
DDX: includes gastritis, lower GI blood loss, others
s/p 2 units of RBCs, will give another unit
Low folate
Normal Vitamin B12
c/w PPI therapy
Appreciate GI input
# medical non - compliance
Lives alone, poor OP care, concern about living situation
consulted case filler. PT/OT
# Hypernatremia, corrected, stop IVF
# Positive blood culture
Possible contaminant
Repeat blood culture 06/07
Urine culture is pending
Appreciate ID help
#acute kidney injury
Resolved, can stop IVF
Added Bladder scan
#hypocalcemia
Hypomagnesemia
#transaminitis
US is ordered, possible Cirrhosis.
No signs of DT,
Admits to alcohol intake
No abd pain
# Alcohol use disorder
Initially, patient denied alcohol intake but later said she would drink adult beverages including vodka/ wine 3-4 times a day. EMT reported empty vodka bottles at home.
I am not sure if she is forthcoming regarding her alcohol intake and if it is related to her fall or deconditioning. For now we will try to monitor for alcohol withdrawal, ( No signs yet) . c/w high-dose thiamine to be on the safe side and as
needed Ativan for withdrawal/anxiety
# Traumatic rhabdomyolysis
Continue with hydration. Pain control as needed. Kidney functions improving
# Collection of leukocytosis, low blood pressure/hypotension, hypothermia, seemed sepsis/septic shock on admission.
leukocytosis, resolved
Lactic: Negative
UA: pending
Blood Cx: pending
CXR: No acute issues
- started empiric antibiotic Zosyn
#gait dysfunction, weakness, fall
- consulted PT
- fall precautions
#hypertension
Still soft BP but not low
- holding losartan-HCTZ in setting LIAM
Code status: full code
DVT prophylaxis: SCDs
Total time spent to see the patient, examine the patient, review data lab result, discuss treatment plan with patient, nursing staff around 55 minutes
Anticipated Discharge: > 48 hours
Subjective/Interval History
-
Date of Service: June 09, 2025
No chest pain
Objective Data
-
Labs:
Laboratory Results
06/09/25
05:58
WBC 7.4
Hgb 7.2 L
Hct 21.2 L
Plt Count 130
PT 15.0 H
INR 1.12
Sodium 144
Potassium 3.5
Chloride 121 H
Carbon Dioxide 19 L
BUN 24 H
Creatinine 1.4 H
Glucose 73
Calcium 7.6 L
Total Bilirubin 1.2
AST 98 H
ALT 43 H
Alkaline Phosphatase 106
Vital Signs:
Vital Signs
Temp Pulse Resp BP Pulse Ox
97.6 F 75 17 124/55 100
06/09/25 07:40 06/09/25 06:05 06/09/25 06:05 06/09/25 06:05 06/09/25 06:05
I&O
06/08/25 06/09/25 06/10/25
06:59 06:59 06:59
Intake Total 4805 / 4805 990 / 990
Output Total 1350 / 1350
Balance 3455 / 3455 990 / 990
--- NOTE | 2025-06-09 11:19 | PN.CDI ---
CDI
- -
CDI:
Physician Documentation Request
Admit Date: 06/06/25 15:30
Dear Doctor Soto,
Patient admitted for anemia.
Clinical panel nursing documentation wound care
06/06/25
18:45 06/07/25
16:00
Drainage amount [Present on admission Sacrum] None
Pressure injury stage [Present on admission Sacrum] Stage 1 Stage 1
Surrounding Skin - [Present on admission Sacrum] Local erythema Local erythema
Treatment provided [Present on admission Sacrum] Barrier
ointment
Physician documentation of the type and location of wounds is required for compliant documentation. Based on the above clinical findings and your assessment, please provide the following in your progress note:
1. Location of the ulcer/wound, including laterality.
2. Type (etiology) of ulcer/wound:
- Diabetic ulcer
- Arterial (ischemic) ulcer
- Traumatic wound
- Venous stasis ulcer
- Pressure (decubitus) ulcer
- Non-healing surgical wound
- Other
- Unable to determine
3. For a non-pressure ulcer, please indicate the depth/severity:
- Limited to the breakdown of skin
- With fat layer exposed
- With necrosis of muscle
- With necrosis of bone
- Other
- Unable to determine
4. If a pressure ulcer, please also include the stage* of the ulcer:
- Stage 1 - Skin intact, non-blanchable redness
- Stage 2 - Partial thickness loss of dermis, includes intact or open blister
- Stage 3 - Full thickness tissue not including bone, tendon or muscle
- Stage 4 - Full thickness tissue loss, including exposed bone, tendon or muscle
- Unstageable - Full thickness loss in which the base of the ulcer is covered by slough (yellow, priest, lorenzana, green or brown) and/or eschar (priest, brown or black) in the wound bed.
- Unable to determine
Use of terms such as suspected, likely, concern for, or probable (associated with a specific diagnosis that is being evaluated, monitored, or treated as if it exists) are acceptable and can be coded in the inpatient setting, when documented at the
time of discharge.
Thank you,
Nicolette Cazares RN, BSN
CDI Specialist
Available via [place] text
Please use your independent medical judgment in providing your response.
*Source: National Pressure Ulcer Advisory Panel (NPUAP)
--- NOTE | 2025-06-09 23:32 | PTCARENOTE ---
Pt denies complaints at this time. Remains SR, SB on CM. Maintained on RA. R midline remains intact. Pt continues to c/o severe pain when BP cuff cycles, sometimes refuses BP measurement. Education reinforced. Call leiva within reach. Care ongoing.
[2025-06-10] VITALS (10 sets, daily range): BP systolic 121–146; BP diastolic 71–83
[2025-06-10 04:11] LABS: Hematocrit 25.7 % (37.0-47.0); Hemoglobin 8.5 g/dL (12.0-16.0); Mean Corp Hgb Conc. 33.1 g/dL (33.0-37.0); Mean Corpuscular Volume 96.3 fL (81.0-99.0); Platelet Count 134 10^3/uL (130-400); Red Cell Dist. Width 24.5 % (11.5-14.5)
[2025-06-10 04:28] LABS: Blood Urea Nitrogen 18 mg/dl (7-17); Calcium 7.8 mg/dl (8.4-10.2); Carbon Dioxide 15 mmol/L (22-30); Chloride 124 mmol/L (98-107); Estimated Creatinine Clearance 55 ml/min; Glucose 78 mg/dl (70-99); Magnesium 1.6 mg/dl (1.6-2.3); Potassium 3.4 mmol/L (3.5-5.1); Sodium 144 mmol/L (135-145); eGFR 57.88
--- NOTE | 2025-06-10 08:13 | PTCARENOTE ---
Pt AAOx3, forgetful lungs are clear on RA. TRacce BLE edema. R midline in place. Pt has scattered scabs on her body, pt has a skin picking disorder. Pt is now for Med surg.
--- NOTE | 2025-06-10 08:24 | W.PN.HOSP.TC ---
Today's Communication/Plan
-
Move to med/surg
oral potassium
oral iron
oral thiamine
oral folate
IV magnesium
PT/OT/eventual SNF
Assessment / Plan
Assessment / Plan
Physical Exam
General: No Apparent Distress, Comfortable, Conversant, chronically ill looking, and Obese
HEENT: Normocephalic, Moist mucous membranes and Atraumatic
Respiratory: Clear; No Non Labored Respirations
Cardiac: S1/S2 and Regular Rhythm; No Murmur, Rub or Gallop
Breast: Deferred by me
GI: Soft, Non Tender, Non Distended and Normal Bowel Sounds;
Rectal: Hem Positive (Hemoccult completed in ED )
Genito-urinary: No hematuria
Musculoskeletal: No Clubbing, No Cyanosis and No Edema
Neuro: Awake oriented to self and surroundings, and Nonfocal/grossly intact
Psych: Calm
A/p:
# Acute blood loss anemia
EGD & colonoscopy showed no clear source but diverticulosis noted
No active GI bleeding
Start oral iron
DDX: includes gastritis, lower GI blood loss, others
s/p 3 units of RBCs.
Low folate, folate deficiency
Normal Vitamin B12
c/w PPI therapy
Appreciate GI input
# Hypokalemia
# medical non - compliance
Lives alone, poor OP care, concern about living situation
consulted case liner. PT/OT
# Hypernatremia, corrected, stop IVF
# Positive blood culture
seemed contaminant
Repeat blood culture 06/07 , no growth
Urine culture is NGTD
Appreciate ID help
#acute kidney injury
Resolved, dc IVF
Added Bladder scan
#hypocalcemia
Hypomagnesemia , given another iV Mg sulfate 1 gm
# Skin picking disorder
#transaminitis
US is ordered, possible Cirrhosis.
No signs of DT,
Admits to alcohol intake
No abd pain
# Alcohol use disorder
Initially, patient denied alcohol intake but later said she would drink adult beverages including vodka/ wine 3-4 times a day. EMT reported empty vodka bottles at home.
I am not sure if she is forthcoming regarding her alcohol intake and if it is related to her fall or deconditioning. For now we will try to monitor for alcohol withdrawal, ( No signs yet) . c/w high-dose thiamine to be on the safe side and as
needed Ativan for withdrawal/anxiety
# Traumatic rhabdomyolysis
Continue with hydration. Pain control as needed. Kidney functions improving
# Collection of leukocytosis, low blood pressure/hypotension, hypothermia, seemed sepsis/septic shock on admission.
leukocytosis, resolved
Lactic: Negative
UA: pending
Blood Cx: pending
CXR: No acute issues
- started empiric antibiotic Zosyn
#gait dysfunction, weakness, fall
- consulted PT
- fall precautions
#hypertension
Still soft BP but not low
- holding losartan-HCTZ in setting LIAM
Code status: full code
DVT prophylaxis: SCDs
Total time spent to see the patient, examine the patient, review data lab result, discuss treatment plan with patient, nursing staff around 55 minutes
Anticipated Discharge: 24 - 48 hours
Subjective/Interval History
-
Date of Service: June 10, 2025
She wants to go home but then agreed to try rehab
She denies pains, reports feeling bored
Objective Data
-
Labs:
Laboratory Results
06/10/25
03:51
WBC 7.3
Hgb 8.5 L
Hct 25.7 L
Plt Count 134
Sodium 144
Potassium 3.4 L
Chloride 124 H
Carbon Dioxide 15 L
BUN 18 H
Creatinine 1.1 H
Glucose 78
Calcium 7.8 L
Vital Signs:
Vital Signs
Temp Pulse Resp BP Pulse Ox
97.3 F 64 13 129/75 97
06/10/25 07:46 06/10/25 06:00 06/10/25 06:00 06/10/25 06:00 06/09/25 19:56
I&O
06/09/25 06/10/25 06/11/25
06:59 06:59 06:59
Intake Total 990 / 990 730 / 730
Balance 990 / 990 730 / 730
[2025-06-10] MEDS: KCL 20 MEQ PO ×2 (09:29→20:41)
[2025-06-10] MEDS: PROTONIX IV 40 MG IV ×2 (09:29→20:41)
[2025-06-10] MEDS: FOLVITE 1 MG PO (09:29)
[2025-06-10] MEDS: MAGNESIUM SULFATE 100 IV (09:30)
[2025-06-10] MEDS: NSS (PRESERVATIVE FREE) 10 ML IV ×2 (09:30→20:42)
[2025-06-10] MEDS: FEOSOL 325 MG PO (09:34)
[2025-06-10] MEDS: VITAMIN B1 100 MG PO (09:34)
--- NOTE | 2025-06-10 11:10 | W.PN.GI.CBS2 ---
Today's Communication / Plan
-
-- GI to sign off. Please call with questions see assessment plan
Assessment / Plan
-
59-year-old female past medical history of gastric bypass in 1998, gastric ulcers presenting with poor functional status found to be down the ground for 12 hours with bilateral knee pain. + EtOH use (suspect more than patient states).
Found to have mild acute alcoholic hepatitis (DF today 11), brown stool hemoccult positive with anemia likely multifactorial with iron studies c/w iron overload and low folic acid, also history of anastomotic ulcer with gastric bypass, low temps but
work up for infection negative, LIAM, rhabdo, hypoCa, hyperNa.
Recommendations:
- Continue folic acid and thiamine
- Monitor EtOH withdrawal
- US to evaluate liver for possible cirrhosis
06/09/2025 -EGD and colonoscopy were unrevealing for any source of anemia
06/10/2025 -patient's hemoglobin stable with no overt bleeding and no blood or source found on EGD or colonoscopy
-- Likely multifactorial including chronic alcoholism, poor nutrition, lack of bariatric vitamin
-- Check hemoglobin tomorrow, outpatient I told her to get some Silverio melts which are found on [employer] as well. It is a full bariatric vitamin
-- Told to follow-up with her PCP Dr. Duarte for labs in 2 weeks
-- Will need to follow-up in our office as well, would suggest MR elastography with iron levels, hemochromatosis testing
-- GI will sign off. Please call with any questions
Will need eventual outpatient follow up
Subjective
Subjective
Date of Service: June 10, 2025
Patient without complaints. No overt bleeding
Objective
Data Reviewed
Laboratory Data:
Laboratory Results
06/10/25 03:51
06/10/25 03:51
Laboratory Results
PT 15.0 Sec (11.4-14.6) H 06/09/25 05:58
INR 1.12 06/09/25 05:58
Magnesium 1.6 mg/dl (1.6-2.3) 06/10/25 03:51
Total Bilirubin 1.2 mg/dl (0.2-1.3) 06/09/25 05:58
AST 98 U/L (14-36) H 06/09/25 05:58
ALT 43 U/L (0-35) H 06/09/25 05:58
Alkaline Phosphatase 106 U/L (38-126) 06/09/25 05:58
Vital Signs and I&O:
Vital Signs
Temp Pulse Resp BP Pulse Ox
97.3 F 64 13 129/75 97
06/10/25 07:46 06/10/25 06:00 06/10/25 06:00 06/10/25 06:00 06/09/25 19:56
I&O
06/09/25 06/10/25 06/11/25
06:59 06:59 06:59
Intake Total 990 / 990 730 / 730
Balance 990 / 990 730 / 730
Physical Exam
Physical Exam
HEENT: Anicteric
GI: Soft, Non Distended and Non Tender
Neuro: Non Focal
--- NOTE | 2025-06-10 11:29 | PTCARENOTE ---
Attempted to call report room still occupied
--- NOTE | 2025-06-10 13:51 | PTCARENOTE ---
Report to [facility] nurse.
--- NOTE | 2025-06-10 14:20 | PTCARENOTE ---
Pt packed and ready to go stretcher here awaiting tech to b available
--- NOTE | 2025-06-10 15:37 | PTCARENOTE ---
Pt transfered to 3w. Pt oriented to floor VSS afebrile pt denied any pain. pt needed to void. pt put on bedpan. call leiva in hand
[2025-06-10] MEDS: MAGNESIUM OXIDE 400 MG PO (20:44)
[2025-06-11 05:50] LABS: Hematocrit 25.8 % (37.0-47.0); Hemoglobin 8.7 g/dL (12.0-16.0); Mean Corp Hgb Conc. 33.7 g/dL (33.0-37.0); Mean Corpuscular Volume 97.0 fL (81.0-99.0); Platelet Count 122 10^3/uL (130-400); Red Cell Dist. Width 24.8 % (11.5-14.5)
[2025-06-11 06:06] LABS: Blood Urea Nitrogen 13 mg/dl (7-17); Calcium 7.7 mg/dl (8.4-10.2); Carbon Dioxide 14 mmol/L (22-30); Chloride 125 mmol/L (98-107); Estimated Creatinine Clearance 76 ml/min; Glucose 84 mg/dl (70-99); Magnesium 1.5 mg/dl (1.6-2.3); Potassium 3.8 mmol/L (3.5-5.1); Sodium 146 mmol/L (135-145); eGFR > 60.00
[2025-06-11 07:00] VITALS: BP 158/83
--- NOTE | 2025-06-11 08:37 | W.PN.HOSP.TC ---
Addendum entered and electronically signed by Dao Valera MD 06/11/25 17:08:
Addendum
VBG showing Low PH, likely metabolic acidosis
Possible related to alcohol use disorder or RTA
Will d/w nephrology
End
Addendum entered and electronically signed by Dao Valera MD 06/11/25 09:30:
Addendum
Reviewed blood work, acidosis noticed, suspect metabolic acidosis which could be secondary respiratory alkalosis. Will do ABG. Normal renal function. No hyperglycemia
- Thrombocytopenia, suspect underlying liver cirrhosis, ultrasound showed fatty liver. Monitor
End
Original Note:
Today's Communication/Plan
-
Replace Mg and K orally
NO need for midline if can have peripheral line
Dry skin, encourage lotion
High sodium, encourage water intake
Assessment / Plan
Assessment / Plan
Physical Exam
General: No Apparent Distress, Comfortable, Conversant, chronically ill looking, and Obese
HEENT: Normocephalic, Moist mucous membranes and Atraumatic
Respiratory: Clear; No Non Labored Respirations
Cardiac: S1/S2 and Regular Rhythm; No Murmur, Rub or Gallop
GI: Soft, Non Tender, Non Distended and Normal Bowel Sounds;
Rectal: Hem Positive (Hemoccult completed in ED )
Genito-urinary: No hematuria
Musculoskeletal: No Clubbing, No Cyanosis and No Edema
Neuro: AAOX3, She follows commands. Nonfocal/grossly intact. Gait is weak in general and unsteady
Psych: Calm, pleasant.
A/p:
# Acute blood loss anemia
EGD & colonoscopy showed no clear source but diverticulosis noted
No active GI bleeding
c/w oral iron
s/p 3 units of RBCs.
Low folate, folate deficiency
Normal Vitamin B12
c/w PPI therapy
Appreciate GI input
# Hypokalemia
# medical non - compliance
Lives alone, poor OP care, concern about living situation
consulted rn case manager. PT/OT, pt agreed to SNF
# Hypernatremia, s/p hypotonic IVF
now encourage water intake
# Positive blood culture
seemed contaminant
Repeat blood culture 06/07 , no growth
Urine culture is NGTD
Appreciate ID help
#acute kidney injury
Resolved, dc IVF
Added Bladder scan
#hypocalcemia
Hypomagnesemia , s/p IV Mg sulfate , c/w oral magnesium
# Skin picking disorder
#transaminitis
US is ordered, possible Cirrhosis.
No signs of DT,
Admits to alcohol intake
No abd pain
# Alcohol use disorder
Initially, patient denied alcohol intake but later said she would drink adult beverages including vodka/ wine 3-4 times a day. EMT reported empty vodka bottles at home. She remained AAOX3.
No signs of alcohol withdrawal. S/P high-dose thiamine
# Traumatic rhabdomyolysis
s/p IV hydration. Pain control as needed. Kidney function back to normal.
# Collection of leukocytosis, low blood pressure/hypotension, hypothermia, seemed sepsis/septic shock on admission. Sepsis ruled out, likely SIRS with organ dysfunction.
leukocytosis, resolved
Lactic: Negative
UA: Negative
Blood Cx: Negative
CXR: No acute issues
-s/p antibiotic Zosyn
#gait dysfunction, weakness, fall
- consulted PT
- fall precautions
#hypertension
Was soft BP but not low , can resume Losartan-HCTZ
Code status: full code
DVT prophylaxis: SCDs
Total time spent to see the patient, examine the patient, review data lab result, discuss treatment plan with patient, nursing staff around 55 minutes
Anticipated Discharge: 24 - 48 hours
Subjective/Interval History
-
Date of Service: June 11, 2025
No complaints
She feels much better
Objective Data
-
Labs:
Laboratory Results
06/11/25 06/11/25
05:20 05:21
WBC 8.3
Hgb 8.7 L
Hct 25.8 L
Plt Count 122 L
Sodium 146 H
Potassium 3.8
Chloride 125 H
Carbon Dioxide 14 L*
BUN 13
Creatinine 0.8
Glucose 84
Calcium 7.7 L
Vital Signs:
Vital Signs
Temp Pulse Resp BP Pulse Ox
97.8 F 75 19 158/83 99
06/11/25 07:00 06/11/25 07:00 06/11/25 07:00 06/11/25 07:00 06/11/25 07:00
I&O
06/10/25 06/11/25 06/12/25
06:59 06:59 06:59
Intake Total 730 / 730 480 / 480
Balance 730 / 730 480 / 480
[2025-06-11] MEDS: TYLENOL 650 MG PO (08:39)
[2025-06-11] MEDS: VITAMIN B1 100 MG PO (08:39)
[2025-06-11] MEDS: PROTONIX IV 40 MG IV (08:39)
[2025-06-11] MEDS: FEOSOL 325 MG PO (08:39)
[2025-06-11] MEDS: KCL 20 MEQ PO ×2 (08:39→20:35)
[2025-06-11] MEDS: FOLVITE 1 MG PO (08:39)
[2025-06-11] MEDS: NSS (PRESERVATIVE FREE) 10 ML IV (08:40)
[2025-06-11] MEDS: MAGNESIUM OXIDE 400 MG PO ×3 (08:41→22:13)
[2025-06-11 10:48] LABS: Venous Blood Gas B.E. -8.5 mmol/L (-4 to +4); Venous Blood Gas O2 Sat % 83.0 %
--- NOTE | 2025-06-11 11:41 | PTCARENOTE ---
PT stated she cannot get oob, Physical therapy note stated two assist. . With two assist, we got patient to side of bed. we sat here for several moments before standing. Then we stood and while attempting to do a stand and pivot, her legs buckeled
but we were able to successfully assist her to the chair. She sat in chair for breakfast. PT tolerated being OOB for two hours. we got her back to bed wtih Three max assist. Again we stood and pivoted and her legs were about to give out again but
was back in bed. She is now resting in bed comfortable
--- NOTE | 2025-06-11 11:43 | PTCARENOTE ---
Throughout out my shift yesterday and today, the patient was guarding her left knee wound with excessive drainaged noted and screaming if we went anywhere near it. SHe refused me to touch it or to remove dressing. Today i explained the need to
assess the wound. The patient agreed. When i removed dressing there was a 2 inc byh 2 inch area of bleeding skin tear with the middle 2 cm b 2 cm foul odor yellow stringy eshar. Wound cleansed with NSS, vas guaze applied with max sorb, Wound care
consult ordered Md notified.
[2025-06-11 13:42] VITALS: BP 141/91; PULSE 74
[2025-06-11 15:00] VITALS: BP 135/80
[2025-06-11] MEDS: SODIUM BICARBONATE 1100 MEQ IV (18:16)
[2025-06-11 23:00] VITALS: BP 137/73
[2025-06-12 07:07] LABS: Hematocrit 26.8 % (37.0-47.0); Hemoglobin 8.9 g/dL (12.0-16.0); Mean Corp Hgb Conc. 33.2 g/dL (33.0-37.0); Mean Corpuscular Volume 97.5 fL (81.0-99.0); Platelet Count 132 10^3/uL (130-400); Red Cell Dist. Width 24.9 % (11.5-14.5)
[2025-06-12 07:23] LABS: ALT (SGPT) 43 U/L (0-35); AST (SGOT) 90 U/L (14-36); Albumin 2.9 g/dl (3.5-5.0); Alkaline Phosphatase 130 U/L (38-126); Blood Urea Nitrogen 10 mg/dl (7-17); Calcium 7.8 mg/dl (8.4-10.2); Carbon Dioxide 19 mmol/L (22-30); Chloride 120 mmol/L (98-107); Estimated Creatinine Clearance 87 ml/min; Glucose 91 mg/dl (70-99); Magnesium 1.4 mg/dl (1.6-2.3); Potassium 3.7 mmol/L (3.5-5.1); Sodium 145 mmol/L (135-145); Total Protein 5.7 g/dl (6.3-8.2); eGFR > 60.00
[2025-06-12 08:00] VITALS: BP 134/67
[2025-06-12] MEDS: VITAMIN B1 100 MG PO (08:10)
[2025-06-12] MEDS: FOLVITE 1 MG PO (08:10)
[2025-06-12] MEDS: FEOSOL 325 MG PO (08:10)
[2025-06-12] MEDS: KCL 20 MEQ PO ×2 (08:10→20:06)
[2025-06-12] MEDS: PROTONIX 40 MG PO (08:10)
[2025-06-12] MEDS: MAGNESIUM OXIDE 400 MG PO (08:10)
--- NOTE | 2025-06-12 08:52 | W.PN.HOSP.TC ---
Today's Communication/Plan
-
IVF. Discharge planning
Assessment / Plan
Assessment / Plan
Physical Exam:
General: No Apparent Distress, Comfortable, Conversant, chronically ill looking, and Obese
HEENT: Normocephalic, Moist mucous membranes and Atraumatic
Respiratory: Clear; No Non Labored Respirations
Cardiac: S1/S2 and Regular Rhythm; No Murmur, Rub or Gallop
GI: Soft, Non Tender, Non Distended and Normal Bowel Sounds;
Rectal: Hem Positive (Hemoccult completed in ED )
Genito-urinary: No hematuria
Musculoskeletal: No Clubbing, No Cyanosis and No Edema
Neuro: AAOX3, She follows commands. Nonfocal/grossly intact. Gait is weak in general and unsteady
Psych: Calm, pleasant.
A/p:
# Acute blood loss anemia
EGD & colonoscopy showed no clear source but diverticulosis noted
No active GI bleeding
c/w oral iron
s/p 3 units of RBCs.
Low folate, folate deficiency
Normal Vitamin B12
c/w PPI therapy
Appreciate GI input
# Non-anion gap metabolic acidosis/LIAM, resolved/hyperchloremia:
On IV fluids with bicarb and add oral sodium bicarb
Nephrology consult appreciated
#Hypomagnesemia
Replete and trend
# Hypokalemia
Repleted
# medical non - compliance
Lives alone, poor OP care, concern about living situation
consulted disease case manager. PT/OT, pt agreed to SNF
# Hypernatremia, s/p hypotonic IVF
now encourage water intake
# Positive blood culture
seemed contaminant
Repeat blood culture 06/07 , no growth
Urine culture is NGTD
Appreciate ID help
#acute kidney injury
Resolved back on IV fluids due to acidosis
Added Bladder scan
#hypocalcemia
# Skin picking disorder
#transaminitis
US is ordered, possible Cirrhosis.
No signs of DT,
Admits to alcohol intake
No abd pain
# Alcohol use disorder
Initially, patient denied alcohol intake but later said she would drink adult beverages including vodka/ wine 3-4 times a day. EMT reported empty vodka bottles at home. She remained AAOX3.
No signs of alcohol withdrawal. S/P high-dose thiamine
# Traumatic rhabdomyolysis
s/p IV hydration. Pain control as needed. Kidney function back to normal.
# Collection of leukocytosis, low blood pressure/hypotension, hypothermia, seemed sepsis/septic shock on admission. Sepsis ruled out, likely SIRS with organ dysfunction.
leukocytosis, resolved
Lactic: Negative
UA: Negative
Blood Cx: Negative
CXR: No acute issues
-s/p antibiotic Zosyn
#gait dysfunction, weakness, fall
- consulted PT
- fall precautions
#hypertension
Was soft BP but not low , can resume Losartan-HCTZ
Code status: full code
DVT prophylaxis: SCDs
Total time spent to see the patient, examine the patient, review data lab result, discuss treatment plan with patient, nursing staff around 36 minutes
Anticipated Discharge: Within 24 hours
Subjective/Interval History
-
Date of Service: June 12, 2025
Patient feels better overall. No chest pain or shortness of breath
Objective Data
-
Labs:
Laboratory Results
06/12/25
06:33
WBC 8.9
Hgb 8.9 L
Hct 26.8 L
Plt Count 132
Sodium 145
Potassium 3.7
Chloride 120 H
Carbon Dioxide 19 L
BUN 10
Creatinine 0.7
Glucose 91
Calcium 7.8 L
Total Bilirubin 1.1
AST 90 H
ALT 43 H
Alkaline Phosphatase 130 H
Vital Signs:
Vital Signs
Temp Pulse Resp BP Pulse Ox
97.8 F 65 16 134/67 100
06/12/25 08:00 06/12/25 08:00 06/12/25 08:00 06/12/25 08:00 06/12/25 08:00
I&O
06/11/25 06/12/25 06/13/25
06:59 06:59 06:59
Intake Total 480 / 480 2280 / 2280
Balance 480 / 480 2280 / 2280
--- NOTE | 2025-06-12 09:17 | W.CON.NEPH ---
Addendum entered and electronically signed by Cosme Katz MD 06/12/25 16:54:
I agree with the resident's note with the addition
59-year-old female with alcohol history found on the floor for at least 12 hours. She has had multiple falls in the past and has very poor functional status. At the time of admission she was noted to have a hemoglobin of 6.5 with acute kidney
injury creatinine 1.8. Transfused and with volume status resuscitation her LIAM did resolve. However she has persisted with metabolic acidosis for which we are asked to assist with management of. Her acute anemia was evaluated with the end of
colonoscopy showing only diverticulosis. Has not required any blood products since admission. She has hypertension controlled with a multidrug regimen as an outpatient.
Patient is awake alert oriented and in no distress. Mood and affect were pleasant, insight and judgment were good. Pupils are equal round and reactive to light, extraocular movements are intact, sclera were anicteric. Hearing was normal, ears and
nose are intact. Oropharynx was clear. Neck was supple with trachea midline and no thyromegaly. Heart was regular rate and rhythm without rubs. Lower extremities without edema. Lungs were clear to auscultation bilaterally and with normal
excursion. Abdomen was soft, nontender, with normal active bowel sounds, and no hepatosplenomegaly. Skin was without rash and with normal turgor.
Laboratory values reviewed including all the blood work from June 17, 2023.
Chest x-ray 06/07/2025 by reading no acute disease
EKG 06/06/2025 by wi normal sinus rhythm prolonged QT
Impression
Non Anion Gap Metabolic acidosis
Acuteanemia
Transaminitis
LIAM, now resolved
Hypertension
Hypomagnesemia
Hypocalcemia
Plan
Continue IV fluids with Sodium HCO3
Oral sodium bicarbonate tablets
Replete mag with IV mag
Replete calcium
Stop oral mag given continued diarrhea
Follow BMP
Original Note:
Consultation
-
Date/Time Consultation Requested: 06/11/2025 17:07
Date/Time Consultation Performed: 06/12/2025 09:00
Requesting Provider: Dao Valera MD
Performing Provider: JONATHAN GALLARDO MD
Reason for Consultation: Metabolic acidosis
Medical History
-
History of Present Illness:
This is a 59-year-old female past medical history of hypertension who presented to ED 06/06/2025 due to poor functional status. It was noted that the patient has had multiple falls in the past, was found on the bathroom floor for approximately
12 hours before being located. In addition, patient with past history of alcohol use disorder. She admits to consuming 2-3 drinks per week. On presentation, she was found to be anemic with hemoglobin of 6.5, LIAM with creatinine of 1.8 and CO2 18.
She has been evaluated by GI with endoscopy and colonoscopy 06/10 with no evidence of bleeding, diverticulosis noted. LIAM resolved with creatinine returning back to baseline 0.7. Throughout the course of hospital stay, now day 7, her CO2 level has
been trending down, CO2 of 14 as of yesterday when his consult was placed. In addition, VBG was ordered which was consistent with metabolic acidosis. We are consulted to evaluate this patient given acidosis. Laboratory today with sodium 145, CO2
19, creatinine 0.7.
Past Medical History
Hypertension, hyperlipidemia, insomnia, appendectomy, hysterectomy, gastric bypass
Social History
Tobacco: Former Smoker
Alcohol: Occasional
Drug: None
Living: Alone
Family History
Family History: Not Pertinent
Allergies / Home Medications
Allergy/AdvReac Type Severity Reaction Status Date / Time
hydrocodone bitartrate (From Allergy Itching Verified 06/06/25 11:41
Vicodin)
latex (Latex) Allergy Blisters Verified 06/06/25 11:41
rash
itching
swelling
morphine (Morphine) Allergy Itching Verified 06/06/25 11:41
penicillin G (Penicillin G) Allergy rash Verified 06/06/25 15:41
swelling
itching at
30years
old,
tolerates
amoxicillin
bee stings Allergy swells up Uncoded 06/06/25 11:41
�Medication �Instructions �Recorded �Confirmed �Type
losartan 100 1 tab PO HS Blood Pressure 06/17/23 06/06/25 History
mg-hydrochlorothiazide 12.5 mg
tablet
Review of Systems
-
All other systems: Negative unless noted (Except as documented in HPI)
Physical Exam
Vital Signs
Vital Signs
Temp Pulse Resp BP Pulse Ox
97.8 F 65 16 134/67 100
06/12/25 08:00 06/12/25 08:00 06/12/25 08:00 06/12/25 08:00 06/12/25 08:00
Lab Results
WBC 8.9 10^3/uL (4.8-10.8) 06/12/25 06:33
RBC 2.75 10^6/uL (4.20-5.40) L 06/12/25 06:33
Hgb 8.9 g/dL (12.0-16.0) L 06/12/25 06:33
Hct 26.8 % (37.0-47.0) L 06/12/25 06:33
Plt Count 132 10^3/uL (130-400) 06/12/25 06:33
Sodium 145 mmol/L (135-145) 06/12/25 06:33
Potassium 3.7 mmol/L (3.5-5.1) 06/12/25 06:33
Chloride 120 mmol/L (98-107) H 06/12/25 06:33
Carbon Dioxide 19 mmol/L (22-30) L 06/12/25 06:33
BUN 10 mg/dl (7-17) 06/12/25 06:33
Creatinine 0.7 mg/dL (0.6-1.0) 06/12/25 06:33
eGFR > 60.00 06/12/25 06:33
Glucose 91 mg/dl (70-99) 06/12/25 06:33
Calcium 7.8 mg/dl (8.4-10.2) L 06/12/25 06:33
Albumin 2.9 g/dl (3.5-5.0) L 06/12/25 06:33
Physical Exam
General: Awake and AOx3
Respiratory: Clear
Cardiac: S1/S2 and Regular Rate/Rhythm
Abdomen: Soft, Nontender, Nondistended and Normal Bowel Sounds
Musculoskeletal: No Edema
Assessment/Plan
-
Impression
Non Anion Gap Metabolic acidosis
Hyperchloremia
Acute blood loss anemia
Transaminitis
Folate deficiency
LIAM, now resolved
Hypertension
Plan
Continue IV fluids with Sodium Bicarb
Oral sodium bicarb tablets
Replete mag with IV mag
Stop oral mag given episodic diarrhea
Monitor BMP
[2025-06-12] MEDS: SODIUM BICARBONATE 1100 MEQ IV (09:18)
--- NOTE | 2025-06-12 11:42 | WOUNDNOTE ---
[facility] RN note: Patient admitted with anemia, leukocytosis, LIAM, rhabdomyolysis. Patient fell and was lying on the floor for 15 hours prior to admission. Patient lives alone. Plan is rehab when discharged.
See H&P for complete history.
PMH: skin picking disorder, ETOH use disorder, gait dysfunction.
Wound Location and type/assessment: Patient admitted with: L knee deep dermal skin tear, pink with scant yellow exudate. Scattered dry small scabs suspect from patient picking on R knee, R hip. Yeast appearing rash abdominal and breast folds. L
heel small purple area DTI vs varicose vein (suspect evolved from lying on floor prior to admission).
Appetite: good.
Pressure redistribution devices in place: [employer] Accumax. Patient can turn self in bed.
Plan: L knee dressing changed. Foam dressing applied to heels. Heels off bed with pillow. Air chair cushion given. Instructed patient pressure injury prevention measures.
Confirmed orders with Dr. Atkinson.
Care plan to be updated and will follow as needed.
Recommend follow up at wound care center if needed upon discharge.
--- NOTE | 2025-06-12 12:00 | WOUNDNOTE ---
[facility] (POSTERIOR)
[2025-06-12] MEDS: SODIUM BICARBONATE 1075 MEQ IV (12:17)
[2025-06-12] MEDS: MAGNESIUM SULFATE 50 IV (12:18)
[2025-06-12] MEDS: SODIUM BICARBONATE 650 MG PO ×2 (12:18→20:06)
--- NOTE | 2025-06-12 14:54 | CM ---
Patient chart reviewed
spoke with Juju from [facility]-states she will see patient and request documents for medicaid
PT rec SNF
Referrals in [facility]port
PLAN: SNF, pending acceptance/bed availability, when stable
[2025-06-12 15:39] VITALS: BP 121/77
[2025-06-12] MEDS: DESENEX/MITRAZOL/ZEASORB 1 APPLIC TOPICAL (20:06)
[2025-06-12 23:49] VITALS: BP 137/73
[2025-06-13] MEDS: SODIUM BICARBONATE 1075 MEQ IV ×2 (00:24→10:10)
[2025-06-13 07:33] LABS: ALT (SGPT) 35 U/L (0-35); AST (SGOT) 62 U/L (14-36); Albumin 2.5 g/dl (3.5-5.0); Alkaline Phosphatase 106 U/L (38-126); Blood Urea Nitrogen 6 mg/dl (7-17); Calcium 7.0 mg/dl (8.4-10.2); Carbon Dioxide 23 mmol/L (22-30); Chloride 116 mmol/L (98-107); Estimated Creatinine Clearance 102 ml/min; Glucose 79 mg/dl (70-99); Magnesium 1.6 mg/dl (1.6-2.3); Potassium 3.5 mmol/L (3.5-5.1); Sodium 143 mmol/L (135-145); Total Protein 4.8 g/dl (6.3-8.2); eGFR > 60.00
[2025-06-13 07:40] VITALS: BP 135/70
[2025-06-13] MEDS: DESENEX/MITRAZOL/ZEASORB 1 APPLIC TOPICAL ×2 (07:48→19:35)
[2025-06-13] MEDS: FOLVITE 1 MG PO (07:49)
[2025-06-13] MEDS: FEOSOL 325 MG PO (07:49)
[2025-06-13] MEDS: KCL 20 MEQ PO (07:49)
[2025-06-13] MEDS: SODIUM BICARBONATE 650 MG PO ×2 (07:49→19:35)
[2025-06-13] MEDS: PROTONIX 40 MG PO (07:49)
[2025-06-13] MEDS: VITAMIN B1 100 MG PO (07:49)
--- NOTE | 2025-06-13 11:33 | W.PN.HOSP.TC ---
Today's Communication/Plan
-
Discharge planning
Assessment / Plan
Assessment / Plan
Physical Exam:
General: No Apparent Distress, Comfortable, Conversant, chronically ill looking, and Obese
HEENT: Normocephalic, Moist mucous membranes and Atraumatic
Respiratory: Clear; No Non Labored Respirations
Cardiac: S1/S2 and Regular Rhythm; No Murmur, Rub or Gallop
GI: Soft, Non Tender, Non Distended and Normal Bowel Sounds;
Rectal: Hem Positive (Hemoccult completed in ED )
Genito-urinary: No hematuria
Musculoskeletal: No Clubbing, No Cyanosis and No Edema
Neuro: AAOX3, She follows commands. Nonfocal/grossly intact. Gait is weak in general and unsteady
Psych: Calm, pleasant.
A/p:
# Acute blood loss anemia
EGD & colonoscopy showed no clear source but diverticulosis noted
No active GI bleeding
c/w oral iron
s/p 3 units of RBCs.
Low folate, folate deficiency
Normal Vitamin B12
c/w PPI therapy
Appreciate GI input
Discussed with CM medically cleared for d/c
# Non-anion gap metabolic acidosis/LIAM, resolved/hyperchloremia:
Stop IV fluids with bicarb and added oral sodium bicarb to finish course today
Nephrology consult appreciated
#Hypomagnesemia
Replete and trend
# Hypokalemia
Repleted
# medical non - compliance
Lives alone, poor OP care, concern about living situation
consulted ed case manager. PT/OT, pt agreed to SNF
# Hypernatremia, s/p hypotonic IVF
now encourage water intake
# Positive blood culture
seemed contaminant
Repeat blood culture 06/07 , no growth
Urine culture is NGTD
Appreciate ID help
#acute kidney injury
Resolved back on IV fluids due to acidosis
Added Bladder scan
#hypocalcemia
# Skin picking disorder
#transaminitis
US is ordered, possible Cirrhosis.
No signs of DT,
Admits to alcohol intake
No abd pain
# Alcohol use disorder
Initially, patient denied alcohol intake but later said she would drink adult beverages including vodka/ wine 3-4 times a day. EMT reported empty vodka bottles at home. She remained AAOX3.
No signs of alcohol withdrawal. S/P high-dose thiamine
# Traumatic rhabdomyolysis
s/p IV hydration. Pain control as needed. Kidney function back to normal.
# Collection of leukocytosis, low blood pressure/hypotension, hypothermia, seemed sepsis/septic shock on admission. Sepsis ruled out, likely SIRS with organ dysfunction.
leukocytosis, resolved
Lactic: Negative
UA: Negative
Blood Cx: Negative
CXR: No acute issues
-s/p antibiotic Zosyn
#gait dysfunction, weakness, fall
- consulted PT
- fall precautions
#hypertension
ARB and HCTZ was discontinued
Will start low-dose calcium channel fozia
Code status: full code
DVT prophylaxis: SCDs
Anticipated Discharge: Today
Subjective/Interval History
-
Date of Service: June 13, 2025
No nausea or vomiting. Reports some diarrhea. No chest pain or shortness of breath
Objective Data
-
Labs:
Laboratory Results
06/13/25
06:29
Sodium 143
Potassium 3.5
Chloride 116 H
Carbon Dioxide 23
BUN 6 L
Creatinine 0.6
Glucose 79
Calcium 7.0 L
Total Bilirubin 0.9
AST 62 H
ALT 35
Alkaline Phosphatase 106
Vital Signs:
Vital Signs
Temp Pulse Resp BP Pulse Ox
98.7 F 76 16 135/70 99
06/13/25 07:40 06/13/25 07:40 06/13/25 07:40 06/13/25 07:40 06/13/25 07:40
I&O
06/12/25 06/13/25 06/14/25
06:59 06:59 06:59
Intake Total 2280 / 2280 960 / 960
Balance 2280 / 2280 960 / 960
[2025-06-13] MEDS: NORVASC 2.5 MG PO (11:48)
--- NOTE | 2025-06-13 11:51 | W.PN.NEPH.PH ---
Today's Communication / Plan
-
cap IVF
Assessment/Plan
-
Impression
Non Anion Gap Metabolic acidosis
Hyperchloremia
Acute blood loss anemia
Transaminitis
Folate deficiency
LIAM, now resolved
Hypertension
Plan
cap IV fluids with Sodium Bicarb
Oral sodium bicarb tablets for today
Replete calcium and K
No oral mag given episodic diarrhea
Monitor BMP
-
-
Date of Service: June 13, 2025
CC / HPI / ROS
-
Chief Complaint:
metabolic acidosis
History of Present Illness:
acidosis improved 23
Calcium low 7
K low 3.5
Mag better 1.6
BP stable
Review of Systems:
no CP/SOB
Labs
-
Labs:
WBC 8.9 10^3/uL (4.8-10.8) 06/12/25 06:33
RBC 2.75 10^6/uL (4.20-5.40) L 06/12/25 06:33
Hgb 8.9 g/dL (12.0-16.0) L 06/12/25 06:33
Hct 26.8 % (37.0-47.0) L 06/12/25 06:33
Plt Count 132 10^3/uL (130-400) 06/12/25 06:33
Sodium 143 mmol/L (135-145) 06/13/25 06:29
Potassium 3.5 mmol/L (3.5-5.1) 06/13/25 06:29
Chloride 116 mmol/L (98-107) H 06/13/25 06:29
Carbon Dioxide 23 mmol/L (22-30) 06/13/25 06:29
BUN 6 mg/dl (7-17) L 06/13/25 06:29
Creatinine 0.6 mg/dL (0.6-1.0) 06/13/25 06:29
eGFR > 60.00 06/13/25 06:29
Glucose 79 mg/dl (70-99) 06/13/25 06:29
Calcium 7.0 mg/dl (8.4-10.2) L 06/13/25 06:29
Albumin 2.5 g/dl (3.5-5.0) L 06/13/25 06:29
Physical Exam
-
Vital Signs:
Vital Signs
Temp Pulse Resp BP Pulse Ox
98.7 F 72 16 123/74 99
06/13/25 07:40 06/13/25 11:48 06/13/25 07:40 06/13/25 11:48 06/13/25 07:40
Cardiovascular:: Regular rate and rhythm
Respiratory:: Bilateral: Coarse
Lung Excursion:: Normal
Abdomen:: Nontender and Soft
Bowel Sounds:: Normal
Extremity Edema:: None: Bilateral:
[2025-06-13] MEDS: CALCIUM GLUCONATE 290 MG IV (12:22)
[2025-06-13] MEDS: KCL 40 MEQ PO (12:22)
[2025-06-13 12:55] VITALS: PULSE 72; O2SAT 99
[2025-06-13 15:37] VITALS: BP 120/73
[2025-06-13 23:00] VITALS: BP 137/73
[2025-06-14 07:19] LABS: Albumin 2.7 g/dl (3.5-5.0); Blood Urea Nitrogen 7 mg/dl (7-17); Calcium 8.0 mg/dl (8.4-10.2); Carbon Dioxide 23 mmol/L (22-30); Chloride 117 mmol/L (98-107); Estimated Creatinine Clearance 102 ml/min; Glucose 82 mg/dl (70-99); Potassium 4.0 mmol/L (3.5-5.1); Sodium 144 mmol/L (135-145); eGFR > 60.00
[2025-06-14 07:30] VITALS: BP 137/68
[2025-06-14] MEDS: VITAMIN B1 100 MG PO (08:44)
[2025-06-14] MEDS: FOLVITE 1 MG PO (08:44)
[2025-06-14] MEDS: FEOSOL 325 MG PO (08:44)
[2025-06-14] MEDS: SODIUM BICARBONATE 650 MG PO (08:44)
[2025-06-14] MEDS: PROTONIX 40 MG PO (08:44)
[2025-06-14] MEDS: NORVASC 2.5 MG PO (08:44)
[2025-06-14] MEDS: DESENEX/MITRAZOL/ZEASORB 1 APPLIC TOPICAL ×2 (08:45→20:55)
--- NOTE | 2025-06-14 09:04 | W.PN.HOSP.TC ---
Today's Communication/Plan
-
Discharge planning
Assessment / Plan
Assessment / Plan
Physical Exam:
General: No Apparent Distress, Comfortable, Conversant, chronically ill looking, and Obese
HEENT: Normocephalic, Moist mucous membranes and Atraumatic
Respiratory: Clear; No Non Labored Respirations
Cardiac: S1/S2 and Regular Rhythm; No Murmur, Rub or Gallop
GI: Soft, Non Tender, Non Distended and Normal Bowel Sounds;
Rectal: Hem Positive (Hemoccult completed in ED )
Genito-urinary: No hematuria
Musculoskeletal: No Clubbing, No Cyanosis and No Edema
Neuro: AAOX3, She follows commands. Nonfocal/grossly intact. Gait is weak in general and unsteady
Psych: Calm, pleasant.
A/p:
# Acute blood loss anemia
EGD & colonoscopy showed no clear source but diverticulosis noted
No active GI bleeding
c/w oral iron
s/p 3 units of RBCs.
Low folate, folate deficiency
Normal Vitamin B12
c/w PPI therapy
Appreciate GI input
Medically clear for discharge
Awaiting case management for discharge disposition
# Non-anion gap metabolic acidosis/LIAM, resolved/hyperchloremia:
Stop IV fluids with bicarb and added oral sodium bicarb to finish course today
Nephrology consult appreciated
#Hypomagnesemia
Replete and trend
# Hypokalemia
Repleted
# medical non - compliance
Lives alone, poor OP care, concern about living situation
consulted transplant case manager. PT/OT, pt agreed to SNF
# Hypernatremia, s/p hypotonic IVF
now encourage water intake
# Positive blood culture
seemed contaminant
Repeat blood culture 06/07 , no growth
Urine culture is NGTD
Appreciate ID help
#acute kidney injury
Resolved back on IV fluids due to acidosis
Added Bladder scan
#hypocalcemia
# Skin picking disorder
#transaminitis
US is ordered, possible Cirrhosis.
No signs of DT,
Admits to alcohol intake
No abd pain
# Alcohol use disorder
Initially, patient denied alcohol intake but later said she would drink adult beverages including vodka/ wine 3-4 times a day. EMT reported empty vodka bottles at home. She remained AAOX3.
No signs of alcohol withdrawal. S/P high-dose thiamine
# Traumatic rhabdomyolysis
s/p IV hydration. Pain control as needed. Kidney function back to normal.
# Collection of leukocytosis, low blood pressure/hypotension, hypothermia, seemed sepsis/septic shock on admission. Sepsis ruled out, likely SIRS with organ dysfunction.
leukocytosis, resolved
Lactic: Negative
UA: Negative
Blood Cx: Negative
CXR: No acute issues
-s/p antibiotic Zosyn
#gait dysfunction, weakness, fall
- consulted PT
- fall precautions
#hypertension
ARB and HCTZ was discontinued
Continue calcium channel fozia and increase dose and reeval
Code status: full code
DVT prophylaxis: SCDs
Anticipated Discharge: Today
Subjective/Interval History
-
Date of Service: June 14, 2025
No new complaints. Patient had normal bowel movement per patient report. Afebrile
Objective Data
-
Labs:
Laboratory Results
06/14/25
06:23
Sodium 144
Potassium 4.0
Chloride 117 H
Carbon Dioxide 23
BUN 7
Creatinine 0.6
Glucose 82
Calcium 8.0 L
Vital Signs:
Vital Signs
Temp Pulse Resp BP Pulse Ox
98.2 F 69 18 137/68 98
06/14/25 07:30 06/14/25 07:30 06/14/25 07:30 06/14/25 07:30 06/14/25 07:30
I&O
06/13/25 06/14/25 06/15/25
06:59 06:59 06:59
Intake Total 960 / 960 720 / 720
Balance 960 / 960 720 / 720
[2025-06-14 12:57] VITALS: BP 115/82; PULSE 77
[2025-06-14 14:15] VITALS: BP 178/89
--- NOTE | 2025-06-14 14:15 | PTCARENOTE ---
PCT Zhao Rodriguez attempting to transfer patient back to bed from chair after she rang call leiva to get back to bed. Upon PCT trying to transfer patient, patient's legs buckled and he eased patient to floor on her knees. Then he yelled, 'I need
help in here!'. multiple staff members went into room to assist PCT with transferring patient from floor back to bed, vss, no injuries observed, no complaints, will make MD aware, will continue to monitor.
--- NOTE | 2025-06-14 14:16 | CM ---
CM met with patient along with Juuj from [facility]
Patient states she does not work, no insurance
Patient states she pays for her medications
cm called [facility] to inquire about the patient-unable to give information
cm called contact Talib - who patient stated is her landlord which he confirmed
Talib stated she is 3 months behind rent
patient lives in an apartment over garage with steps in apartment to get to bed/bath
PT rec SNF - multiple referrals placed in [facility]
Per [facility], [facility], & [facility] unable to accept (stated accepted)-no ins
PLAN: SNF, pending acceptance/bed availability, CM continue to follow.
--- NOTE | 2025-06-14 15:14 | W.PN.NEPH.PH ---
Today's Communication / Plan
-
decrease po bciarb
check labs in am
Assessment/Plan
-
Impression
Non Anion Gap Metabolic acidosis
Hyperchloremia
Acute blood loss anemia
Transaminitis
Folate deficiency
LIAM, now resolved
Hypertension
Plan
met acidosis resolved
ok to wean down po bicarb
do not think she will need this at d/c
mariama better, follow tredn
PTH is high likely secondary cause, check vit D
BP stable
follow labs
-
-
Date of Service: June 14, 2025
CC / HPI / ROS
-
Chief Complaint:
metabolic acidosis
History of Present Illness:
acidosis improved 23
Calcium better at 8
K better at 4
BP stable
Review of Systems:
no CP/SOB
no dizziness
fell today while standing up from chair , no visible injuries
no diarrhea
Labs
-
Labs:
WBC 8.9 10^3/uL (4.8-10.8) 06/12/25 06:33
RBC 2.75 10^6/uL (4.20-5.40) L 06/12/25 06:33
Hgb 8.9 g/dL (12.0-16.0) L 06/12/25 06:33
Hct 26.8 % (37.0-47.0) L 06/12/25 06:33
Plt Count 132 10^3/uL (130-400) 06/12/25 06:33
Sodium 144 mmol/L (135-145) 06/14/25 06:23
Potassium 4.0 mmol/L (3.5-5.1) 06/14/25 06:23
Chloride 117 mmol/L (98-107) H 06/14/25 06:23
Carbon Dioxide 23 mmol/L (22-30) 06/14/25 06:23
BUN 7 mg/dl (7-17) 06/14/25 06:23
Creatinine 0.6 mg/dL (0.6-1.0) 06/14/25 06:23
eGFR > 60.00 06/14/25 06:23
Glucose 82 mg/dl (70-99) 06/14/25 06:23
Calcium 8.0 mg/dl (8.4-10.2) L 06/14/25 06:23
Phosphorus 2.7 mg/dl (2.5-4.5) 06/14/25 06:23
Albumin 2.7 g/dl (3.5-5.0) L 06/14/25 06:23
Physical Exam
-
Vital Signs:
Vital Signs
Temp Pulse Resp BP Pulse Ox
97.9 F 85 18 178/89 97
06/14/25 14:15 06/14/25 14:15 06/14/25 14:15 06/14/25 14:15 06/14/25 14:15
Cardiovascular:: Regular rate and rhythm
Respiratory:: Bilateral: CTA
Lung Excursion:: Normal
Abdomen:: Nontender and Soft
Bowel Sounds:: Normal
Extremity Edema:: None: Bilateral:
Andrew Catheter: No
[2025-06-14 16:00] VITALS: BP 135/73
[2025-06-14 23:18] VITALS: BP 126/61
[2025-06-15 07:00] VITALS: BP 131/75
[2025-06-15] MEDS: FOLVITE 1 MG PO (08:20)
[2025-06-15] MEDS: PROTONIX 40 MG PO (08:20)
[2025-06-15] MEDS: SODIUM BICARBONATE 650 MG PO (08:20)
[2025-06-15] MEDS: VITAMIN B1 100 MG PO (08:20)
[2025-06-15] MEDS: NORVASC 5 MG PO (08:21)
[2025-06-15] MEDS: FEOSOL 325 MG PO (08:21)
[2025-06-15] MEDS: DESENEX/MITRAZOL/ZEASORB 1 APPLIC TOPICAL ×2 (08:26→19:46)
[2025-06-15 08:45] LABS: Magnesium 1.3 mg/dl (1.6-2.3)
[2025-06-15 09:02] LABS: Vitamin D, 25-OH*** < 12.8 ng/mL (30-80)
[2025-06-15 09:15] VITALS: BP 157/91; PULSE 65; O2SAT 100
[2025-06-15] MEDS: MAGNESIUM SULFATE 50 IV (09:27)
--- NOTE | 2025-06-15 10:18 | W.PN.HOSP.TC ---
Today's Communication/Plan
-
Discharge planning
Assessment / Plan
Assessment / Plan
Physical Exam:
General: No Apparent Distress, Comfortable, Conversant, chronically ill looking, and Obese
HEENT: Normocephalic, Moist mucous membranes and Atraumatic
Respiratory: Clear; No Non Labored Respirations
Cardiac: S1/S2 and Regular Rhythm; No Murmur, Rub or Gallop
GI: Soft, Non Tender, Non Distended and Normal Bowel Sounds;
Rectal: Hem Positive (Hemoccult completed in ED )
Genito-urinary: No hematuria
Musculoskeletal: No Clubbing, No Cyanosis and No Edema
Neuro: AAOX3, She follows commands. Nonfocal/grossly intact. Gait is weak in general and unsteady
Psych: Calm, pleasant.
A/p:
# Acute blood loss anemia
EGD & colonoscopy showed no clear source but diverticulosis noted
No active GI bleeding
c/w oral iron
s/p 3 units of RBCs.
Low folate, folate deficiency
Normal Vitamin B12
c/w PPI therapy
Appreciate GI input
Medically clear for discharge
Awaiting case management for discharge disposition
# Non-anion gap metabolic acidosis/LIAM, resolved/hyperchloremia:
Off IV fluids with bicarb and added oral sodium bicarb to finish course today
Nephrology consult appreciated
#Hypomagnesemia
Replete and trend
# Hypokalemia
Repleted
# medical non - compliance
Lives alone, poor OP care, concern about living situation
consulted top case assembler. PT/OT, pt agreed to SNF
# Hypernatremia, s/p hypotonic IVF
now encourage water intake
# Positive blood culture
seemed contaminant
Repeat blood culture 06/07 , no growth
Urine culture is NGTD
Appreciate ID help
#acute kidney injury
Resolved after IV fluids
Added Bladder scan
#hypocalcemia
# Skin picking disorder
#transaminitis
US is ordered, possible Cirrhosis.
No signs of DT,
Admits to alcohol intake
No abd pain
# Alcohol use disorder
Initially, patient denied alcohol intake but later said she would drink adult beverages including vodka/ wine 3-4 times a day. EMT reported empty vodka bottles at home. She remained AAOX3.
No signs of alcohol withdrawal. S/P high-dose thiamine
# Traumatic rhabdomyolysis
s/p IV hydration as needed. Pain control as needed. Kidney function back to normal.
# Collection of leukocytosis, low blood pressure/hypotension, hypothermia, seemed sepsis/septic shock on admission. Sepsis ruled out, likely SIRS with organ dysfunction.
leukocytosis, resolved
Lactic: Negative
UA: Negative
Blood Cx: Negative
CXR: No acute issues
-s/p antibiotic Zosyn
#gait dysfunction, weakness, fall
- consulted PT
- fall precautions
#hypertension
ARB and HCTZ was discontinued
Continue calcium channel fozia, amlodipine 5 mg p.o. daily
Code status: full code
DVT prophylaxis: SCDs
Anticipated Discharge: Today
Subjective/Interval History
-
Date of Service: June 15, 2025
Denies chest pain or shortness of breath. Afebrile
Objective Data
-
Vital Signs:
Vital Signs
Temp Pulse Resp BP Pulse Ox
98.1 F 67 19 131/75 98
06/15/25 07:00 06/15/25 08:21 06/15/25 07:00 06/15/25 08:21 06/15/25 07:00
I&O
06/14/25 06/15/25 06/16/25
06:59 06:59 06:59
Intake Total 720 / 720 720 / 720
Balance 720 / 720 720 / 720
[2025-06-15 11:18] LABS: Blood Urea Nitrogen 8 mg/dl (7-17); Calcium 7.4 mg/dl (8.4-10.2); Carbon Dioxide 24 mmol/L (22-30); Chloride 114 mmol/L (98-107); Estimated Creatinine Clearance 87 ml/min; Glucose 79 mg/dl (70-99); Potassium 3.9 mmol/L (3.5-5.1); Sodium 142 mmol/L (135-145); eGFR > 60.00
[2025-06-15 14:56] VITALS: BP 131/77
--- NOTE | 2025-06-15 16:00 | W.PN.NEPH.PH ---
Today's Communication / Plan
-
replace mg and mariama, start vit D
Assessment/Plan
-
Impression
Non Anion Gap Metabolic acidosis
Hyperchloremia
Acute blood loss anemia
Transaminitis
Folate deficiency
LIAM, now resolved
Hypertension
Plan
met acidosis resolved
ok to wean off po bicarb
do not think she will need this at d/c
mariama still low likely from vit d def-add po mariama and vit D2
PTH is high likely secondary cause
replace mg , not adding po mg as it can exaggerate diarrhea
If she has persistent hypomagnesemia likely need further w/u and off PPI
BP stable
follow labs
d/w pt
-
-
Date of Service: June 15, 2025
CC / HPI / ROS
-
Chief Complaint:
metabolic acidosis
History of Present Illness:
acidosis improved 24
Calcium low at 7.4, alb 2.6
BP stable
mg low 1.3
Review of Systems:
no CP/SOB
no dizziness
Labs
-
Labs:
WBC 8.9 10^3/uL (4.8-10.8) 06/12/25 06:33
RBC 2.75 10^6/uL (4.20-5.40) L 06/12/25 06:33
Hgb 8.9 g/dL (12.0-16.0) L 06/12/25 06:33
Hct 26.8 % (37.0-47.0) L 06/12/25 06:33
Plt Count 132 10^3/uL (130-400) 06/12/25 06:33
Sodium 142 mmol/L (135-145) 06/15/25 07:48
Potassium 3.9 mmol/L (3.5-5.1) 06/15/25 07:48
Chloride 114 mmol/L (98-107) H 06/15/25 07:48
Carbon Dioxide 24 mmol/L (22-30) 06/15/25 07:48
BUN 8 mg/dl (7-17) 06/15/25 07:48
Creatinine 0.7 mg/dL (0.6-1.0) 06/15/25 07:48
eGFR > 60.00 06/15/25 07:48
Glucose 79 mg/dl (70-99) 06/15/25 07:48
Calcium 7.4 mg/dl (8.4-10.2) L 06/15/25 07:48
Phosphorus 2.9 mg/dl (2.5-4.5) 06/15/25 07:48
Albumin 2.7 g/dl (3.5-5.0) L 06/14/25 06:23
Physical Exam
-
Vital Signs:
Vital Signs
Temp Pulse Resp BP Pulse Ox
98.0 F 84 19 131/77 99
06/15/25 14:56 06/15/25 14:56 06/15/25 14:56 06/15/25 14:56 06/15/25 14:56
Cardiovascular:: Regular rate and rhythm
Respiratory:: Bilateral: CTA
Lung Excursion:: Normal
Abdomen:: Nontender and Soft
Bowel Sounds:: Normal
Extremity Edema:: None: Bilateral:
Andrew Catheter: No
[2025-06-15] MEDS: DRISDOL (VITAMIN D2) 50000 UNITS PO (16:39)
[2025-06-15] MEDS: OSCAL CAL 500 500 MG PO (19:46)
--- NOTE | 2025-06-15 22:30 | PTCARENOTE ---
This RN attempted to collect BMP that was ordered. Pt refusing lab draw at this time stating, 'Bother me in the morning with it. I do not want to be poked right now. I am already bruised up enough. We can do it in the morning like we usually do.'
Plan of care ongoing.
[2025-06-15 23:23] VITALS: BP 156/66
[2025-06-16 07:00] VITALS: BP 122/70
[2025-06-16 07:11] LABS: Magnesium 1.6 mg/dl (1.6-2.3)
[2025-06-16] MEDS: FEOSOL 325 MG PO (09:08)
[2025-06-16] MEDS: OSCAL CAL 500 500 MG PO ×2 (09:08→21:09)
[2025-06-16] MEDS: NORVASC 5 MG PO (09:08)
[2025-06-16] MEDS: PROTONIX 40 MG PO (09:08)
[2025-06-16] MEDS: VITAMIN B1 100 MG PO (09:09)
[2025-06-16] MEDS: FOLVITE 1 MG PO (09:09)
[2025-06-16] MEDS: SODIUM BICARBONATE 650 MG PO (09:09)
[2025-06-16] MEDS: DESENEX/MITRAZOL/ZEASORB 1 APPLIC TOPICAL ×2 (09:10→21:09)
--- NOTE | 2025-06-16 10:47 | W.PN.HOSP.TC ---
Today's Communication/Plan
-
Discharge planning
Assessment / Plan
Assessment / Plan
Physical Exam:
General: No Apparent Distress, Comfortable, Conversant, chronically ill looking, and Obese
HEENT: Normocephalic, Moist mucous membranes and Atraumatic
Respiratory: Clear; No Non Labored Respirations
Cardiac: S1/S2 and Regular Rhythm; No Murmur, Rub or Gallop
GI: Soft, Non Tender, Non Distended and Normal Bowel Sounds;
Rectal: Hem Positive (Hemoccult completed in ED )
Genito-urinary: No hematuria
Musculoskeletal: No Clubbing, No Cyanosis and No Edema
Neuro: AAOX3, She follows commands. Nonfocal/grossly intact. Gait is weak in general and unsteady
Psych: Calm, pleasant.
A/p:
# Acute blood loss anemia
EGD & colonoscopy showed no clear source but diverticulosis noted
No active GI bleeding
c/w oral iron
s/p 3 units of RBCs.
Low folate, folate deficiency
Normal Vitamin B12
c/w PPI therapy
Appreciate GI input
Medically clear for discharge
Awaiting case management for discharge disposition
# Non-anion gap metabolic acidosis/LIAM, resolved/hyperchloremia:
Off IV fluids with bicarb and added oral sodium bicarb to finish course probably today
Nephrology consult appreciated
#Hypomagnesemia
Replete and trend
# Hypokalemia
Repleted
# medical non - compliance
Lives alone, poor OP care, concern about living situation
consulted dependency case manager. PT/OT, pt agreed to SNF
# Hypernatremia, s/p hypotonic IVF
now encourage water intake
# Positive blood culture
seemed contaminant
Repeat blood culture 06/07 , no growth
Urine culture is NGTD
Appreciate ID help
#acute kidney injury
Resolved after IV fluids
Added Bladder scan
#hypocalcemia
# Skin picking disorder
#transaminitis
US is ordered, possible Cirrhosis.
No signs of DT,
Admits to alcohol intake
No abd pain
# Alcohol use disorder
Initially, patient denied alcohol intake but later said she would drink adult beverages including vodka/ wine 3-4 times a day. EMT reported empty vodka bottles at home. She remained AAOX3.
No signs of alcohol withdrawal. S/P high-dose thiamine
# Traumatic rhabdomyolysis
s/p IV hydration as needed. Pain control as needed. Kidney function back to normal.
# Collection of leukocytosis, low blood pressure/hypotension, hypothermia, seemed sepsis/septic shock on admission. Sepsis ruled out, likely SIRS with organ dysfunction.
leukocytosis, resolved
Lactic: Negative
UA: Negative
Blood Cx: Negative
CXR: No acute issues
-s/p antibiotic Zosyn
#gait dysfunction, weakness, fall
- consulted PT
- fall precautions
#hypertension
ARB and HCTZ was discontinued
Continue calcium channel fozia, amlodipine 5 mg p.o. daily
Code status: full code
DVT prophylaxis: SCDs
Anticipated Discharge: Today
Subjective/Interval History
-
Date of Service: June 16, 2025
Patient feels well although does not like to take that many pills.
Objective Data
-
Labs:
Laboratory Results
06/15/25
21:18
Sodium Cancelled
Potassium Cancelled
Chloride Cancelled
Carbon Dioxide Cancelled
BUN Cancelled
Creatinine Cancelled
Glucose Cancelled
Calcium Cancelled
Vital Signs:
Vital Signs
Temp Pulse Resp BP Pulse Ox
98.2 F 70 19 122/70 99
06/16/25 07:00 06/16/25 07:00 06/16/25 07:00 06/16/25 07:00 06/16/25 07:00
I&O
06/15/25 06/16/25 06/17/25
06:59 06:59 06:59
Intake Total 720 / 720 1320 / 1320
Balance 720 / 720 1320 / 1320
--- NOTE | 2025-06-16 12:28 | W.PN.NEPH.PH ---
Today's Communication / Plan
-
s/o
Assessment/Plan
-
Impression
Non Anion Gap Metabolic acidosis
Hyperchloremia
Acute blood loss anemia
Transaminitis
Folate deficiency
LIAM, now resolved
Hypertension
Plan
continue vitD, can use OTC 5628-0723 IU daily at OP
dc planning
will sign off
-
-
Date of Service: June 16, 2025
CC / HPI / ROS
-
Chief Complaint:
metabolic acidosis
History of Present Illness:
acidosis improved
Calcium low at 7.4, alb 2.6
BP stable
mg up to 1.6
on vitD for deficiency
Review of Systems:
no CP/SOB
no dizziness
Labs
-
Labs:
WBC 8.9 10^3/uL (4.8-10.8) 06/12/25 06:33
RBC 2.75 10^6/uL (4.20-5.40) L 06/12/25 06:33
Hgb 8.9 g/dL (12.0-16.0) L 06/12/25 06:33
Hct 26.8 % (37.0-47.0) L 06/12/25 06:33
Plt Count 132 10^3/uL (130-400) 06/12/25 06:33
Sodium Cancelled 06/15/25 21:18
Potassium Cancelled 06/15/25 21:18
Chloride Cancelled 06/15/25 21:18
Carbon Dioxide Cancelled 06/15/25 21:18
BUN Cancelled 06/15/25 21:18
Creatinine Cancelled 06/15/25 21:18
eGFR Cancelled 06/15/25 21:18
Glucose Cancelled 06/15/25 21:18
Calcium Cancelled 06/15/25 21:18
Phosphorus 2.9 mg/dl (2.5-4.5) 06/15/25 07:48
Albumin 2.7 g/dl (3.5-5.0) L 06/14/25 06:23
Physical Exam
-
Vital Signs:
Vital Signs
Temp Pulse Resp BP Pulse Ox
98.2 F 70 19 122/70 99
06/16/25 07:00 06/16/25 07:00 06/16/25 07:00 06/16/25 07:00 06/16/25 07:00
Cardiovascular:: Regular rate and rhythm
Respiratory:: Bilateral: CTA
Lung Excursion:: Normal
Abdomen:: Nontender and Soft
Bowel Sounds:: Normal
Extremity Edema:: None: Bilateral:
--- NOTE | 2025-06-16 13:13 | PTCARENOTE ---
patient denies complaints excepts doesn't like taking 'too many pills'. explained to her that she is mostly on oral supplements since she has had poor oral intake. she feels like 'food doesn't taste well'. turns with assist x1, vss, will continue
to monitor.
--- NOTE | 2025-06-16 14:02 | CM ---
CM following for discharge planning. Pt is being evicted from her residence due to being 3 months behind on her rent payments.
Pt is uninsured, does not qualify for SNF admission. [facility] coverage which is necessary for safe disposition.
[2025-06-16 15:00] VITALS: BP 162/69; O2SAT 100
[2025-06-16 15:21] VITALS: BP 162/69; PULSE 73; O2SAT 97
[2025-06-16 15:30] VITALS: BP 142/79
[2025-06-16 23:00] VITALS: BP 131/72
[2025-06-17 07:30] VITALS: BP 149/78
[2025-06-17] MEDS: FOLVITE 1 MG PO (09:53)
[2025-06-17] MEDS: FEOSOL 325 MG PO (09:53)
[2025-06-17] MEDS: OSCAL CAL 500 500 MG PO ×2 (09:53→22:08)
[2025-06-17] MEDS: PROTONIX 40 MG PO (09:53)
[2025-06-17] MEDS: NORVASC 5 MG PO (09:53)
[2025-06-17] MEDS: DESENEX/MITRAZOL/ZEASORB 1 APPLIC TOPICAL ×2 (09:53→22:08)
[2025-06-17] MEDS: TYLENOL 650 MG PO (09:53)
[2025-06-17] MEDS: VITAMIN B1 100 MG PO (09:56)
[2025-06-17] MEDS: SODIUM BICARBONATE 650 MG PO (09:56)
--- NOTE | 2025-06-17 11:18 | W.PN.HOSP.TC ---
Today's Communication/Plan
-
Discharge planning
Assessment / Plan
Assessment / Plan
Physical Exam:
General: No Apparent Distress, Comfortable, Conversant, chronically ill looking, and Obese
HEENT: Normocephalic, Moist mucous membranes and Atraumatic
Respiratory: Clear; No Non Labored Respirations
Cardiac: S1/S2 and Regular Rhythm; No Murmur, Rub or Gallop
GI: Soft, Non Tender, Non Distended and Normal Bowel Sounds;
Rectal: Hem Positive (Hemoccult completed in ED )
Genito-urinary: No hematuria
Musculoskeletal: No Clubbing, No Cyanosis and No Edema
Neuro: AAOX3, She follows commands. Nonfocal/grossly intact. Gait is weak in general and unsteady
Psych: Calm, pleasant.
A/p:
# Acute blood loss anemia
EGD & colonoscopy showed no clear source but diverticulosis noted
No active GI bleeding
c/w oral iron
s/p 3 units of RBCs.
Low folate, folate deficiency
Normal Vitamin B12
c/w PPI therapy
Appreciate GI input
Medically clear for discharge
Awaiting case management for discharge disposition
# Non-anion gap metabolic acidosis/LIAM, resolved/hyperchloremia:
Off IV fluids with bicarb and added oral sodium bicarb to finish course probably today
Nephrology consult appreciated
#Hypomagnesemia
Replete and trend
# Hypokalemia
Repleted
# medical non - compliance
Lives alone, poor OP care, concern about living situation
consulted counseling case manager. PT/OT, pt agreed to SNF
# Hypernatremia, s/p hypotonic IVF
now encourage water intake
# Positive blood culture
seemed contaminant
Repeat blood culture 06/07 , no growth
Urine culture is NGTD
Appreciate ID help
#acute kidney injury
Resolved after IV fluids
Added Bladder scan
#hypocalcemia
# Skin picking disorder
#transaminitis
US is ordered, possible Cirrhosis.
No signs of DT,
Admits to alcohol intake
No abd pain
# Alcohol use disorder
Initially, patient denied alcohol intake but later said she would drink adult beverages including vodka/ wine 3-4 times a day. EMT reported empty vodka bottles at home. She remained AAOX3.
No signs of alcohol withdrawal. S/P high-dose thiamine
# Traumatic rhabdomyolysis
s/p IV hydration as needed. Pain control as needed. Kidney function back to normal.
# Collection of leukocytosis, low blood pressure/hypotension, hypothermia, seemed sepsis/septic shock on admission. Sepsis ruled out, likely SIRS with organ dysfunction.
leukocytosis, resolved
Lactic: Negative
UA: Negative
Blood Cx: Negative
CXR: No acute issues
-s/p antibiotic Zosyn
#gait dysfunction, weakness, fall
- consulted PT
- fall precautions
#hypertension
ARB and HCTZ was discontinued
Continue calcium channel fozia, amlodipine 5 mg p.o. daily
Code status: full code
DVT prophylaxis: SCDs
Anticipated Discharge: 24 - 48 hours
Subjective/Interval History
-
Date of Service: June 17, 2025
Patient feels well. No abdominal pain nausea vomiting
Objective Data
-
Vital Signs:
Vital Signs
Temp Pulse Resp BP Pulse Ox
98.3 F 76 17 149/78 97
06/17/25 07:30 06/17/25 07:30 06/17/25 07:30 06/17/25 07:30 06/17/25 07:30
I&O
06/16/25 06/17/25 06/18/25
06:59 06:59 06:59
Intake Total 1320 / 1320 420 / 420
Balance 1320 / 1320 420 / 420
[2025-06-17 15:21] VITALS: BP 148/80
[2025-06-17 23:15] VITALS: BP 134/73
[2025-06-18] MEDS: OSCAL CAL 500 500 MG PO ×2 (07:18→20:07)
[2025-06-18] MEDS: PROTONIX 40 MG PO (07:18)
[2025-06-18] MEDS: SODIUM BICARBONATE 650 MG PO (07:18)
[2025-06-18] MEDS: NORVASC 5 MG PO (07:18)
[2025-06-18] MEDS: DESENEX/MITRAZOL/ZEASORB 1 APPLIC TOPICAL ×2 (07:18→20:07)
[2025-06-18] MEDS: TYLENOL 650 MG PO (07:18)
[2025-06-18] MEDS: FOLVITE 1 MG PO (07:18)
[2025-06-18] MEDS: VITAMIN B1 100 MG PO (07:18)
[2025-06-18] MEDS: FEOSOL 325 MG PO (07:18)
--- NOTE | 2025-06-18 07:19 | W.PN.HOSP.TC ---
Today's Communication/Plan
-
Replete magnesium. Discharge planning
Assessment / Plan
Assessment / Plan
Physical Exam:
General: No Apparent Distress, Comfortable, Conversant, chronically ill looking, and Obese
HEENT: Normocephalic, Moist mucous membranes and Atraumatic
Respiratory: Clear; No Non Labored Respirations
Cardiac: S1/S2 and Regular Rhythm; No Murmur, Rub or Gallop
GI: Soft, Non Tender, Non Distended and Normal Bowel Sounds;
Rectal: Hem Positive (Hemoccult completed in ED )
Genito-urinary: No hematuria
Musculoskeletal: No Clubbing, No Cyanosis and No Edema
Neuro: AAOX3, She follows commands. Nonfocal/grossly intact. Gait is weak in general and unsteady
Psych: Calm, pleasant.
A/p:
# Acute blood loss anemia
Hemoglobin stable at 8.5 today
Continue Protonix orally 40 mg p.o. daily
Continue oral ferrous sulfate
Need to follow-up with GI as outpatient
EGD & colonoscopy showed no clear source but diverticulosis noted
No active GI bleeding
c/w oral iron
s/p 3 units of RBCs.
Low folate, folate deficiency
Normal Vitamin B12
c/w PPI therapy
Appreciate GI input
Medically clear for discharge
Awaiting case management for discharge disposition
# Non-anion gap metabolic acidosis/LIAM, resolved/hyperchloremia:
Bicarb stable at 22. Stop bicarb supplementation.
Off IV fluids with bicarb and added oral sodium bicarb to finish course probably today
Nephrology consult appreciated
#Hypomagnesemia
Replete today with 4 g of IV magnesium sulfate
Try to avoid oral magnesium to prevent diarrhea
# Hypokalemia
Repleted and stable at 3.5
# medical non - compliance
Lives alone, poor OP care, concern about living situation
consulted block and case maker. PT/OT, pt agreed to SNF. Per block and case maker [employer] involved to assist with insurance coverage for safe discharge disposition.
# Hypernatremia, s/p hypotonic IVF
Sodium normal back to 141
now encourage water intake
# Positive blood culture
Contaminant. Remains afebrile.
seemed contaminant
Repeat blood culture 06/07 , no growth
Urine culture is NGTD
Appreciate ID help
#acute kidney injury
Resolved after IV fluids and creatinine remained stable at 0.6 today
Added Bladder scan
#hypocalcemia
# Skin picking disorder
On calcium and vitamin D supplementation per nephrology recommendations
#transaminitis
Overall improved
US is ordered, possible Cirrhosis.
No signs of DT,
Admits to alcohol intake
No abd pain
# Alcohol use disorder
Initially, patient denied alcohol intake but later said she would drink adult beverages including vodka/ wine 3-4 times a day. EMT reported empty vodka bottles at home. She remained AAOX3.
No signs of alcohol withdrawal. S/P high-dose thiamine
Continue thiamine and folic acid supplementation
# Traumatic rhabdomyolysis
s/p IV hydration as needed. Pain control as needed. Kidney function back to normal.
# Collection of leukocytosis, low blood pressure/hypotension, hypothermia, seemed sepsis/septic shock on admission. Sepsis ruled out, likely SIRS with organ dysfunction.
leukocytosis, resolved
Lactic: Negative
UA: Negative
Blood Cx: Negative
CXR: No acute issues
-s/p antibiotic Zosyn
#gait dysfunction, weakness, fall
- consulted PT
- fall precautions
#hypertension
ARB and HCTZ was discontinued
Started on and continue calcium channel fozia, amlodipine 5 mg p.o. daily. Blood pressure stable on this regimen.
Code status: full code
DVT prophylaxis: SCDs
Total time spent on today's encounter was 35 minutes which included time spent in counseling the patient/family regarding diagnosis and treatment plan as listed above, goals of care, and symptom management. Case was discussed with nursing staff,
specialists, and care coordinators/case management. All labs and imaging personally reviewed by me. Remainder the time spent in detailed review of previous records, lab data, imaging, and other medical provider documentation.
Anticipated Discharge: 24 - 48 hours
Subjective/Interval History
-
Date of Service: June 18, 2025
Patient doing well overall. No abdominal pain nausea or vomiting.
Objective Data
-
Labs:
Laboratory Results
06/18/25
06:00
WBC Pending
Hgb Pending
Hct Pending
Plt Count Pending
Sodium Pending
Potassium Pending
Chloride Pending
Carbon Dioxide Pending
BUN Pending
Creatinine Pending
Glucose Pending
Calcium Pending
Total Bilirubin Pending
AST Pending
ALT Pending
Alkaline Phosphatase Pending
Vital Signs:
Vital Signs
Temp Pulse Resp BP Pulse Ox
98.1 F 70 18 134/73 96
06/17/25 23:15 06/17/25 23:15 06/17/25 23:15 06/17/25 23:15 06/17/25 23:15
I&O
06/17/25 06/18/25 06/19/25
06:59 06:59 06:59
Intake Total 420 / 420 780 / 780
Balance 420 / 420 780 / 780
[2025-06-18 07:35] VITALS: BP 134/79
[2025-06-18 08:02] LABS: Hematocrit 26.8 % (37.0-47.0); Hemoglobin 8.5 g/dL (12.0-16.0); Mean Corp Hgb Conc. 31.7 g/dL (33.0-37.0); Mean Corpuscular Volume 98.2 fL (81.0-99.0); Platelet Count 201 10^3/uL (130-400); Red Cell Dist. Width 22.7 % (11.5-14.5)
[2025-06-18 08:21] LABS: ALT (SGPT) 25 U/L (0-35); AST (SGOT) 45 U/L (14-36); Albumin 2.7 g/dl (3.5-5.0); Alkaline Phosphatase 134 U/L (38-126); Blood Urea Nitrogen 8 mg/dl (7-17); Calcium 7.7 mg/dl (8.4-10.2); Carbon Dioxide 22 mmol/L (22-30); Chloride 114 mmol/L (98-107); Estimated Creatinine Clearance 102 ml/min; Glucose 78 mg/dl (70-99); Magnesium 1.3 mg/dl (1.6-2.3); Potassium 3.5 mmol/L (3.5-5.1); Sodium 141 mmol/L (135-145); Total Protein 5.9 g/dl (6.3-8.2); eGFR > 60.00
[2025-06-18] MEDS: MAGNESIUM SULFATE 100 IV (09:54)
[2025-06-18 14:55] VITALS: BP 151/81; BP 154/91; PULSE 79
[2025-06-18 15:30] VITALS: BP 139/85
[2025-06-18 22:44] VITALS: BP 123/66
[2025-06-19 07:00] VITALS: BP 137/78
[2025-06-19] MEDS: NORVASC 5 MG PO (08:29)
[2025-06-19] MEDS: FEOSOL 325 MG PO (08:29)
[2025-06-19] MEDS: PROTONIX 40 MG PO (08:29)
[2025-06-19] MEDS: OSCAL CAL 500 500 MG PO ×2 (08:29→19:57)
[2025-06-19] MEDS: VITAMIN B1 100 MG PO (08:29)
[2025-06-19] MEDS: FOLVITE 1 MG PO (08:29)
[2025-06-19] MEDS: DESENEX/MITRAZOL/ZEASORB 1 APPLIC TOPICAL ×2 (08:30→19:57)
--- NOTE | 2025-06-19 09:14 | W.PN.HOSP.TC ---
Today's Communication/Plan
-
dc
Assessment / Plan
Assessment / Plan
Physical Exam:
General: No Apparent Distress, Comfortable, Conversant, chronically ill looking, and Obese
HEENT: Normocephalic, Moist mucous membranes and Atraumatic
Respiratory: Clear; No Non Labored Respirations
Cardiac: S1/S2 and Regular Rhythm; No Murmur, Rub or Gallop
GI: Soft, Non Tender, Non Distended and Normal Bowel Sounds;
Rectal: Hem Positive (Hemoccult completed in ED )
Genito-urinary: No hematuria
Musculoskeletal: No Clubbing, No Cyanosis and No Edema
Neuro: AAOX3, She follows commands. Nonfocal/grossly intact. Gait is weak in general and unsteady
Psych: Calm, pleasant.
A/p:
# Acute blood loss anemia
Hemoglobin stable at 8.5 today
Continue Protonix orally 40 mg p.o. daily
Continue oral ferrous sulfate
Need to follow-up with GI as outpatient
EGD & colonoscopy showed no clear source but diverticulosis noted
No active GI bleeding
c/w oral iron
s/p 3 units of RBCs.
Low folate, folate deficiency
Normal Vitamin B12
c/w PPI therapy
Appreciate GI input
Medically clear for discharge
Awaiting case management for discharge disposition
# Non-anion gap metabolic acidosis/LIAM, resolved/hyperchloremia:
Bicarb stable at 22. Stop bicarb supplementation.
Off IV fluids with bicarb and added oral sodium bicarb to finish course probably today
Nephrology consult appreciated
#Hypomagnesemia
Replete today with 4 g of IV magnesium sulfate
Try to avoid oral magnesium to prevent diarrhea
# Hypokalemia
Repleted and stable at 3.5
# medical non - compliance
Lives alone, poor OP care, concern about living situation
consulted case loader operator. PT/OT, pt agreed to SNF. Per case loader operator HRSI involved to assist with insurance coverage for safe discharge disposition.
# Hypernatremia, s/p hypotonic IVF
Sodium normal back to 141
now encourage water intake
# Positive blood culture
Contaminant. Remains afebrile.
seemed contaminant
Repeat blood culture 06/07 , no growth
Urine culture is NGTD
Appreciate ID help
#acute kidney injury
Resolved after IV fluids and creatinine remained stable at 0.6 today
Added Bladder scan
#hypocalcemia
# Skin picking disorder
On calcium and vitamin D supplementation per nephrology recommendations
#transaminitis
Overall improved
US is ordered, possible Cirrhosis.
No signs of DT,
Admits to alcohol intake
No abd pain
# Alcohol use disorder
Initially, patient denied alcohol intake but later said she would drink adult beverages including vodka/ wine 3-4 times a day. EMT reported empty vodka bottles at home. She remained AAOX3.
No signs of alcohol withdrawal. S/P high-dose thiamine
Continue thiamine and folic acid supplementation
# Traumatic rhabdomyolysis
s/p IV hydration as needed. Pain control as needed. Kidney function back to normal.
# Collection of leukocytosis, low blood pressure/hypotension, hypothermia, seemed sepsis/septic shock on admission. Sepsis ruled out, likely SIRS with organ dysfunction.
leukocytosis, resolved
Lactic: Negative
UA: Negative
Blood Cx: Negative
CXR: No acute issues
-s/p antibiotic Zosyn
#gait dysfunction, weakness, fall
- consulted PT
- fall precautions
#hypertension
ARB and HCTZ was discontinued
Started on and continue calcium channel fozia, amlodipine 5 mg p.o. daily. Blood pressure stable on this regimen.
Code status: full code
DVT prophylaxis: SCDs
Total time spent on today's encounter was 35 minutes which included time spent in counseling the patient/family regarding diagnosis and treatment plan as listed above, goals of care, and symptom management. Case was discussed with nursing staff,
specialists, and care coordinators/case management. All labs and imaging personally reviewed by me. Remainder the time spent in detailed review of previous records, lab data, imaging, and other medical provider documentation.
Anticipated Discharge: Today
Subjective/Interval History
-
Date of Service: June 19, 2025
No complaints
Objective Data
-
Vital Signs:
Vital Signs
Temp Pulse Resp BP Pulse Ox
98.1 F 77 19 137/78 98
06/19/25 07:00 06/19/25 08:29 06/19/25 07:00 06/19/25 08:29 06/19/25 07:00
I&O
06/18/25 06/19/25 06/20/25
06:59 06:59 06:59
Intake Total 780 / 780 905 / 905
Balance 780 / 780 905 / 905
[2025-06-19 14:17] VITALS: BP 159/83; PULSE 68; O2SAT 98
[2025-06-19 14:52] VITALS: BP 159/83; PULSE 68; O2SAT 98
[2025-06-19 15:00] VITALS: BP 145/84
--- NOTE | 2025-06-19 15:05 | CM ---
Addendum entered by Chelly Rojas 06/19/25 17:15:
CM attempted call to [facility] - they were closed - CM to call tomorrow & place referral and check again if she is known to them.
Original Note:
Met with patient at bedside
Left voice message with Juju at [facility] - patient does have banking luann on her phone, spoke with Talib (contact in [employer], an [employer]) who stated he would be willing to assist with management letter that Juju had requested to assist with MA
application
PT rec SNF-per Talib states that patient could not navigate the steps in home prior to coming to hospital.
Referrals sent in careport - have not secured a bed, continue search
Information given to patient for [facility]
PLAN: SNF, CM to continue to bed search
[2025-06-19] MEDS: MAGNESIUM OXIDE 400 MG PO (19:57)
[2025-06-19 23:00] VITALS: BP 153/75
[2025-06-20 07:15] VITALS: BP 146/66
[2025-06-20] MEDS: FOLVITE 1 MG PO (08:53)
[2025-06-20] MEDS: DESENEX/MITRAZOL/ZEASORB 1 APPLIC TOPICAL ×2 (08:53→19:39)
[2025-06-20] MEDS: VITAMIN B1 100 MG PO (08:53)
[2025-06-20] MEDS: OSCAL CAL 500 500 MG PO ×2 (08:53→19:39)
[2025-06-20] MEDS: PROTONIX 40 MG PO (08:53)
[2025-06-20] MEDS: NORVASC 5 MG PO (08:53)
[2025-06-20] MEDS: FEOSOL 325 MG PO (08:53)
[2025-06-20] MEDS: MAGNESIUM OXIDE 400 MG PO ×2 (08:53→19:39)
--- NOTE | 2025-06-20 09:10 | W.PN.HOSP.TC ---
Today's Communication/Plan
-
discharge planning
Medically stable
Assessment / Plan
Assessment / Plan
Physical Exam:
General: No Apparent Distress, Comfortable, Conversant, chronically ill looking, and Obese
HEENT: Normocephalic, Moist mucous membranes and Atraumatic
Respiratory: Clear; No Non Labored Respirations
Cardiac: S1/S2 and Regular Rhythm; No Murmur, Rub or Gallop
GI: Soft, Non Tender, Non Distended and Normal Bowel Sounds;
Rectal: no bleeding.
Genito-urinary: No hematuria
Musculoskeletal: No Clubbing, No Cyanosis and No Edema
Neuro: AAOX3, She follows commands. Nonfocal/grossly intact. Gait is weak in general and unsteady
Psych: Calm, pleasant.
A/p:
# Acute blood loss anemia
Hemoglobin stable around 8
Continue Protonix orally 40 mg p.o. daily
Continue oral ferrous sulfate
Need to follow-up with GI as outpatient
EGD & colonoscopy showed no clear source but diverticulosis noted
No active GI bleeding
c/w oral iron
s/p 3 units of RBCs.
Low folate, folate deficiency
Normal Vitamin B12
c/w PPI therapy
Appreciate GI input
Medically clear for discharge
Awaiting case management for discharge disposition
# Non-anion gap metabolic acidosis/LIAM, resolved/hyperchloremia:
Bicarb stable at 22. Stop bicarb supplementation.
Off IV fluids with bicarb and added oral sodium bicarb to finish course probably today
Nephrology consult appreciated
#Hypomagnesemia
Replete today with 4 g of IV magnesium sulfate
Try to avoid oral magnesium to prevent diarrhea
# Hypokalemia
Repleted and stable at 3.5
# medical non - compliance
Lives alone, poor OP care, concern about living situation
consulted egg caser. PT/OT, pt agreed to SNF. Per egg caser HRSI involved to assist with insurance coverage for safe discharge disposition.
# Hypernatremia, s/p hypotonic IVF
Sodium normal back to 141
now encourage water intake
# Positive blood culture
Contaminant. Remains afebrile.
seemed contaminant
Repeat blood culture 06/07 , no growth
Urine culture is NGTD
Appreciate ID help
#acute kidney injury
Resolved after IV fluids and creatinine remained stable at 0.6 today
Added Bladder scan
#hypocalcemia
# Skin picking disorder
On calcium and vitamin D supplementation per nephrology recommendations
#transaminitis
Overall improved
US is ordered, possible Cirrhosis.
No signs of DT,
Admits to alcohol intake
No abd pain
# Alcohol use disorder
Initially, patient denied alcohol intake but later said she would drink adult beverages including vodka/ wine 3-4 times a day. EMT reported empty vodka bottles at home. She remained AAOX3.
No signs of alcohol withdrawal. S/P high-dose thiamine
Continue thiamine and folic acid supplementation
# Traumatic rhabdomyolysis
s/p IV hydration as needed. Pain control as needed. Kidney function back to normal.
# Collection of leukocytosis, low blood pressure/hypotension, hypothermia, seemed sepsis/septic shock on admission. Sepsis ruled out, likely SIRS with organ dysfunction.
leukocytosis, resolved
Lactic: Negative
UA: Negative
Blood Cx: Negative
CXR: No acute issues
-s/p antibiotic Zosyn
#gait dysfunction, weakness, fall
- consulted PT
- fall precautions
#hypertension
ARB and HCTZ was discontinued
Started on and continue calcium channel fozia, amlodipine 5 mg p.o. daily. Blood pressure stable on this regimen.
Code status: full code
DVT prophylaxis: SCDs
Total time spent on today's encounter was 35 minutes which included time spent in counseling the patient/family regarding diagnosis and treatment plan as listed above, goals of care, and symptom management. Case was discussed with nursing staff,
specialists, and care coordinators/case management. All labs and imaging personally reviewed by me. Remainder the time spent in detailed review of previous records, lab data, imaging, and other medical provider documentation.
Anticipated Discharge: Today
Subjective/Interval History
-
Date of Service: June 20, 2025
Denies chest pain or abd pain.
She does not like taking supplements
Objective Data
-
Vital Signs:
Vital Signs
Temp Pulse Resp BP Pulse Ox
98.2 F 72 17 146/66 98
06/20/25 07:15 06/20/25 08:53 06/20/25 07:15 06/20/25 08:53 06/20/25 07:15
I&O
06/19/25 06/20/25 06/21/25
06:59 06:59 06:59
Intake Total 905 / 905 1380 / 1380
Balance 905 / 905 1380 / 1380
--- NOTE | 2025-06-20 13:49 | CM ---
CM reviewed chart
Call with Raf Paniagua ([phone])/dispatcher automobile rental for [employer]
He confirmed pt has an open case and he is assigned dispatcher automobile rental
CM requested assistance with dc planning and coordination of efforts for LTC planning
Fiberglass Insulation Installer noted as pt now deemed to be in a safe facility and not in the community, APS involvement will be limited in their intervention and efforts
He will discuss with APS Police Inspector/Aubree Mike ([phone]) to further discuss and update CM accordingly
He noted he is not aware of of any family involvement, only has landlord information
He was not aware pt is without insurance
[facility]Juju
Pt initially resistant to providing bank statement but did end providing to Juju
Ab has emailed employer verification form to Jasen Cameron, awaiting completion for MA luann
Juju asking for assistance with landlord completing management letter, she will email copy of blank to senior project leader/team lead/Ruben Clark
PT/OT continue to recommend SNF
Large amount of SNF referrals previously sent and no accepting facility as pt without payor source
CM to follow up on SNF referrals once payor source identified/anticipate MA
Discharge Disposition- anticipate SNF
[2025-06-20 15:29] VITALS: BP 148/98
--- NOTE | 2025-06-20 16:50 | PTCARENOTE ---
While assisting patient from BSC to bed, patient claimed she was falling/buckled her knees. Able to assist patient onto side of bed. Once on side of bed, patient began trying to drag herself to the ground. This RN and another RN that was assisting
was able to get patient back fully into bed/patient did not fall.
[2025-06-20 23:00] VITALS: BP 145/69
--- NOTE | 2025-06-21 02:21 | DOWNTIME ---
There was a [employer] Client Barrel Roller Operator Downtime on 06/21/2025 from 0100 to 06/21/2025 at 0215. Downtime documentation of patient's care, including medication administrations, has been reconciled in the electronic record per guidelines. Refer to the
patient's paper chart under the miscellaneous tab to see printed paper medication records and downtime forms.
[2025-06-21 07:47] VITALS: BP 145/86
--- NOTE | 2025-06-21 08:59 | CM ---
Addendum entered by Chelly Rojas 06/21/25 10:21:
Met with Talib power
Management form completed by Talib Montez and faxed to Juju at [phone], Talib given a copy
updated Eloise in admissions to correct the spelling of last name for Talib in [facility].
Original Note:
CM left message with Talib/tono (contact in [facility]) to get his email address so he can complete form.
Juju asking for assistance with tono completing management letter ----CM to follow up with Talib
PT/OT rec SNF
multiple referrals sent - no accepting facility without payor source
CM to follow up on SNF referrals once payor source identified/anticipate MA
PLAN: anticipate SNF, CM to continue to follow
--- NOTE | 2025-06-21 09:18 | W.PN.HOSP.TC ---
Today's Communication/Plan
-
dc planning
Assessment / Plan
Assessment / Plan
Physical Exam:
General: No Apparent Distress, Comfortable, Conversant, chronically ill looking, and Obese
HEENT: Normocephalic, Moist mucous membranes and Atraumatic
Respiratory: Clear; No Non Labored Respirations
Cardiac: S1/S2 and Regular Rhythm; No Murmur, Rub or Gallop
GI: Soft, Non Tender, Non Distended and Normal Bowel Sounds;
Rectal: no bleeding.
Genito-urinary: No hematuria
Musculoskeletal: No Clubbing, No Cyanosis and No Edema
Neuro: AAOX3, She follows commands. Nonfocal/grossly intact. Gait is weak in general and unsteady
Psych: Calm, pleasant.
A/p:
# Acute blood loss anemia
Hemoglobin stable around 8
Continue Protonix orally 40 mg p.o. daily
Continue oral ferrous sulfate
Need to follow-up with GI as outpatient
EGD & colonoscopy showed no clear source but diverticulosis noted
No active GI bleeding
c/w oral iron
s/p 3 units of RBCs.
Low folate, folate deficiency
Normal Vitamin B12
c/w PPI therapy
Appreciate GI input
Medically clear for discharge
Awaiting case management for discharge disposition
# Non-anion gap metabolic acidosis/LIAM, resolved/hyperchloremia:
Bicarb stable at 22. Stop bicarb supplementation.
Off IV fluids with bicarb and added oral sodium bicarb to finish course probably today
Nephrology consult appreciated
#Hypomagnesemia
Replete today with 4 g of IV magnesium sulfate
Try to avoid oral magnesium to prevent diarrhea
# Hypokalemia
Repleted and stable at 3.5
# medical non - compliance
Lives alone, poor OP care, concern about living situation
consulted senior case manager. PT/OT, pt agreed to SNF. Per senior case manager HRSI involved to assist with insurance coverage for safe discharge disposition.
# Hypernatremia, s/p hypotonic IVF
Sodium normal back to 141
now encourage water intake
# Positive blood culture
Contaminant. Remains afebrile.
seemed contaminant
Repeat blood culture 06/07 , no growth
Urine culture is NGTD
Appreciate ID help
#acute kidney injury
Resolved after IV fluids and creatinine remained stable at 0.6 today
Added Bladder scan
#hypocalcemia
# Skin picking disorder
On calcium and vitamin D supplementation per nephrology recommendations
#transaminitis
Overall improved
US is ordered, possible Cirrhosis.
No signs of DT,
Admits to alcohol intake
No abd pain
# Alcohol use disorder
Initially, patient denied alcohol intake but later said she would drink adult beverages including vodka/ wine 3-4 times a day. EMT reported empty vodka bottles at home. She remained AAOX3.
No signs of alcohol withdrawal. S/P high-dose thiamine
Continue thiamine and folic acid supplementation
# Traumatic rhabdomyolysis
s/p IV hydration as needed. Pain control as needed. Kidney function back to normal.
# Collection of leukocytosis, low blood pressure/hypotension, hypothermia, seemed sepsis/septic shock on admission. Sepsis ruled out, likely SIRS with organ dysfunction.
leukocytosis, resolved
Lactic: Negative
UA: Negative
Blood Cx: Negative
CXR: No acute issues
-s/p antibiotic Zosyn
#gait dysfunction, weakness, fall
- consulted PT
- fall precautions
#hypertension
ARB and HCTZ was discontinued
Started on and continue calcium channel fozia, amlodipine 5 mg p.o. daily. Blood pressure stable on this regimen.
Code status: full code
DVT prophylaxis: SCDs
Total time spent on today's encounter was 35 minutes which included time spent in counseling the patient/family regarding diagnosis and treatment plan as listed above, goals of care, and symptom management. Case was discussed with nursing staff,
specialists, and care coordinators/case management. All labs and imaging personally reviewed by me. Remainder the time spent in detailed review of previous records, lab data, imaging, and other medical provider documentation.
Anticipated Discharge: Today
Subjective/Interval History
-
Date of Service: June 21, 2025
No chest pain
No sob
No fevers
Objective Data
-
Vital Signs:
Vital Signs
Temp Pulse Resp BP Pulse Ox
97.8 F 75 16 145/86 99
06/21/25 07:47 06/21/25 07:47 06/21/25 07:47 06/21/25 07:47 06/21/25 07:47
I&O
06/20/25 06/21/25 06/22/25
06:59 06:59 06:59
Intake Total 1380 / 1380 720 / 720
Balance 1380 / 1380 720 / 720
[2025-06-21] MEDS: VITAMIN B1 100 MG PO (09:58)
[2025-06-21] MEDS: FEOSOL 325 MG PO (09:59)
[2025-06-21] MEDS: MAGNESIUM OXIDE 400 MG PO ×2 (09:59→20:20)
[2025-06-21] MEDS: OSCAL CAL 500 500 MG PO ×2 (09:59→20:20)
[2025-06-21] MEDS: FOLVITE 1 MG PO (09:59)
[2025-06-21] MEDS: NORVASC 5 MG PO (09:59)
[2025-06-21] MEDS: PROTONIX 40 MG PO (10:03)
[2025-06-21] MEDS: DESENEX/MITRAZOL/ZEASORB 1 APPLIC TOPICAL ×2 (10:06→20:20)
[2025-06-21 14:45] VITALS: BP 146/86
[2025-06-21 15:00] VITALS: BP 146/86
--- NOTE | 2025-06-21 15:18 | WOUNDNOTE ---
[facility] RN Note: Patient's L knee wound appears newly healed. Silicone border foam maintained. Sacral/buttocks blanchable red. Cassy skin mild MASD. Cassy care given by [facility] RN lynda Leger. L heel small purple ecchymotic area unchanged (bruise vs
DTI?) from last week. R flank/posterior hip scabs now discolored healed old scratch areas. Skin on R heel intact. Heel foam dressings changed. Heels off bed with pillow. Patient's appetite somewhat improved. Air chair cushion in chair. Instructed
patient pressure injury prevention measures. Updated XIOMY Aleman.
--- NOTE | 2025-06-21 15:21 | WOUNDNOTE ---
SACRAL/COCCYX/BUTTOCKS
[2025-06-21 23:50] VITALS: BP 153/78
[2025-06-22 07:00] VITALS: BP 153/87
[2025-06-22] MEDS: FOLVITE 1 MG PO (08:06)
[2025-06-22] MEDS: VITAMIN B1 100 MG PO (08:06)
[2025-06-22] MEDS: OSCAL CAL 500 500 MG PO ×2 (08:06→20:06)
[2025-06-22] MEDS: MAGNESIUM OXIDE 400 MG PO ×2 (08:06→20:06)
[2025-06-22] MEDS: PROTONIX 40 MG PO (08:06)
[2025-06-22] MEDS: FEOSOL 325 MG PO (08:06)
[2025-06-22] MEDS: NORVASC 5 MG PO (08:06)
[2025-06-22] MEDS: DESENEX/MITRAZOL/ZEASORB 1 APPLIC TOPICAL ×2 (08:12→20:06)
--- NOTE | 2025-06-22 08:53 | W.PN.HOSP.TC ---
Today's Communication/Plan
-
dc
Assessment / Plan
Assessment / Plan
Physical Exam:
General: No Apparent Distress, Comfortable, Conversant, chronically ill looking, and Obese
HEENT: Normocephalic, Moist mucous membranes and Atraumatic
Respiratory: Clear; No Non Labored Respirations
Cardiac: S1/S2 and Regular Rhythm; No Murmur, Rub or Gallop
GI: Soft, Non Tender, Non Distended and Normal Bowel Sounds;
Rectal: no bleeding.
Genito-urinary: No hematuria
Musculoskeletal: No Clubbing, No Cyanosis and No Edema
Neuro: AAOX3, She follows commands. Nonfocal/grossly intact. Gait is weak in general and unsteady
Psych: Calm, pleasant.
A/p:
# Acute blood loss anemia
Hemoglobin stable around 8
Continue Protonix orally 40 mg p.o. daily
Continue oral ferrous sulfate
Need to follow-up with GI as outpatient
EGD & colonoscopy showed no clear source but diverticulosis noted
No active GI bleeding
c/w oral iron
s/p 3 units of RBCs.
Low folate, folate deficiency
Normal Vitamin B12
c/w PPI therapy
Appreciate GI input
Medically clear for discharge
Awaiting case management for discharge disposition
# Non-anion gap metabolic acidosis/LIAM, resolved/hyperchloremia:
Bicarb stable at 22. Stop bicarb supplementation.
Off IV fluids with bicarb and added oral sodium bicarb to finish course probably today
Nephrology consult appreciated
#Hypomagnesemia
Replete today with 4 g of IV magnesium sulfate
Try to avoid oral magnesium to prevent diarrhea
# Hypokalemia
Repleted and stable at 3.5
# medical non - compliance
Lives alone, poor OP care, concern about living situation
consulted telephonic nurse case manager. PT/OT, pt agreed to SNF. Per telephonic nurse case manager HRSI involved to assist with insurance coverage for safe discharge disposition.
# Hypernatremia, s/p hypotonic IVF
Sodium normal back to 141
now encourage water intake
# Positive blood culture
Contaminant. Remains afebrile.
seemed contaminant
Repeat blood culture 06/07 , no growth
Urine culture is NGTD
Appreciate ID help
#acute kidney injury
Resolved after IV fluids and creatinine remained stable at 0.6 today
Added Bladder scan
#hypocalcemia
# Skin picking disorder
On calcium and vitamin D supplementation per nephrology recommendations
#transaminitis
Overall improved
US is ordered, possible Cirrhosis.
No signs of DT,
Admits to alcohol intake
No abd pain
# Alcohol use disorder
Initially, patient denied alcohol intake but later said she would drink adult beverages including vodka/ wine 3-4 times a day. EMT reported empty vodka bottles at home. She remained AAOX3.
No signs of alcohol withdrawal. S/P high-dose thiamine
Continue thiamine and folic acid supplementation
# Traumatic rhabdomyolysis
s/p IV hydration as needed. Pain control as needed. Kidney function back to normal.
# Collection of leukocytosis, low blood pressure/hypotension, hypothermia, seemed sepsis/septic shock on admission. Sepsis ruled out, likely SIRS with organ dysfunction.
leukocytosis, resolved
Lactic: Negative
UA: Negative
Blood Cx: Negative
CXR: No acute issues
-s/p antibiotic Zosyn
#gait dysfunction, weakness, fall
- consulted PT
- fall precautions
#hypertension
ARB and HCTZ was discontinued
Started on and continue calcium channel fozia, amlodipine 5 mg p.o. daily. Blood pressure stable on this regimen.
Code status: full code
DVT prophylaxis: SCDs
Total time spent on today's encounter was 35 minutes which included time spent in counseling the patient/family regarding diagnosis and treatment plan as listed above, goals of care, and symptom management. Case was discussed with nursing staff,
specialists, and care coordinators/case management. All labs and imaging personally reviewed by me. Remainder the time spent in detailed review of previous records, lab data, imaging, and other medical provider documentation.
Anticipated Discharge: Today
Subjective/Interval History
-
Date of Service: June 22, 2025
No complaints
Objective Data
-
Vital Signs:
Vital Signs
Temp Pulse Resp BP Pulse Ox
98.4 F 70 19 153/87 98
06/22/25 07:00 06/22/25 08:06 06/22/25 07:00 06/22/25 08:06 06/22/25 07:00
I&O
06/21/25 06/22/25 06/23/25
06:59 06:59 06:59
Intake Total 720 / 720 720 / 720
Balance 720 / 720 720 / 720
[2025-06-22 11:36] VITALS: BP 169/91; PULSE 83
[2025-06-22 11:37] VITALS: BP 169/91; PULSE 83
[2025-06-22 15:00] VITALS: BP 151/90
--- NOTE | 2025-06-22 15:29 | CM ---
chart reviewed
PT cont to rec SNF
referrals sent in careport, no accepting facility as pt without payor source
Left message with Juju STAPLETON regarding MA
PLAN: anticipate SNF
[2025-06-22] MEDS: DRISDOL (VITAMIN D2) 50000 UNITS PO (16:28)
[2025-06-22 23:15] VITALS: BP 143/78
[2025-06-23 07:00] VITALS: BP 130/85
[2025-06-23] MEDS: VITAMIN B1 100 MG PO (08:04)
[2025-06-23] MEDS: OSCAL CAL 500 500 MG PO ×2 (08:04→20:24)
[2025-06-23] MEDS: MAGNESIUM OXIDE 400 MG PO ×2 (08:04→20:24)
[2025-06-23] MEDS: PROTONIX 40 MG PO (08:04)
[2025-06-23] MEDS: DESENEX/MITRAZOL/ZEASORB 1 APPLIC TOPICAL ×2 (08:04→20:25)
[2025-06-23] MEDS: FOLVITE 1 MG PO (08:04)
[2025-06-23] MEDS: NORVASC 5 MG PO (08:04)
[2025-06-23] MEDS: FEOSOL 325 MG PO (08:04)
--- NOTE | 2025-06-23 09:19 | W.PN.HOSP.TC ---
Today's Communication/Plan
-
dc planning
Assessment / Plan
Assessment / Plan
Physical Exam:
General: No Apparent Distress, Comfortable, Conversant, chronically ill looking, and Obese
HEENT: Normocephalic, Moist mucous membranes and Atraumatic
Respiratory: Clear; No Non Labored Respirations
Cardiac: S1/S2 and Regular Rhythm; No Murmur, Rub or Gallop
GI: Soft, Non Tender, Non Distended and Normal Bowel Sounds;
Rectal: no bleeding.
Genito-urinary: No hematuria
Musculoskeletal: No Clubbing, No Cyanosis and No Edema
Neuro: AAOX3, She follows commands. Nonfocal/grossly intact. Gait is weak in general and unsteady
Psych: Calm, pleasant.
A/p:
# Acute blood loss anemia
Hemoglobin stable around 8
Continue Protonix orally 40 mg p.o. daily
Continue oral ferrous sulfate
Need to follow-up with GI as outpatient
EGD & colonoscopy showed no clear source but diverticulosis noted
No active GI bleeding
c/w oral iron
s/p 3 units of RBCs.
Low folate, folate deficiency
Normal Vitamin B12
c/w PPI therapy
Appreciate GI input
Medically clear for discharge
Awaiting case management for discharge disposition
# Non-anion gap metabolic acidosis/LIAM, resolved/hyperchloremia:
Bicarb stable at 22. Stop bicarb supplementation.
Off IV fluids with bicarb and added oral sodium bicarb to finish course probably today
Nephrology consult appreciated
#Hypomagnesemia
Replete today with 4 g of IV magnesium sulfate
Try to avoid oral magnesium to prevent diarrhea
# Hypokalemia
Repleted and stable at 3.5
# medical non - compliance
Lives alone, poor OP care, concern about living situation
consulted supportive employment case manager. PT/OT, pt agreed to SNF. Per supportive employment case manager [employer] involved to assist with insurance coverage for safe discharge disposition.
# Hypernatremia, s/p hypotonic IVF
Sodium normal back to 141
now encourage water intake
# Positive blood culture
Contaminant. Remains afebrile.
seemed contaminant
Repeat blood culture 06/07 , no growth
Urine culture is NGTD
Appreciate ID help
#acute kidney injury
Resolved.
#hypocalcemia c/w calcium and vitamin D supplements
# Skin picking disorder
Low dose Zoloft will help
#transaminitis
Overall improved
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
No signs of DT,
No abd pain
# Alcohol use disorder
Initially, patient denied alcohol intake but later said she would drink adult beverages including vodka/ wine 3-4 times a day. EMT reported empty vodka bottles at home. She remained AAOX3.
No signs of alcohol withdrawal. S/P high-dose thiamine
Continue thiamine and folic acid supplementation
Patient reported anxiety and trying to use alcohol, agreed to use low dose Zoloft
# Traumatic rhabdomyolysis
s/p IV hydration as needed. Pain control as needed. Kidney function back to normal.
# Collection of leukocytosis, low blood pressure/hypotension, hypothermia, seemed sepsis/septic shock on admission. Sepsis ruled out, likely SIRS with organ dysfunction.
leukocytosis, resolved
Lactic: Negative
UA: Negative
Blood Cx: Negative
CXR: No acute issues
-s/p antibiotic Zosyn
#gait dysfunction, weakness, fall/ suspect non specific neuropathy, could be nutritional or alcohol related.
- consulted PT
- fall precautions
#hypertension
ARB and HCTZ was discontinued
Started on and continue calcium channel ofzia, amlodipine 5 mg p.o. daily. Blood pressure stable on this regimen.
Code status: full code
DVT prophylaxis: SCDs
Total time spent on today's encounter was 35 minutes which included time spent in counseling the patient/family regarding diagnosis and treatment plan as listed above, goals of care, and symptom management. Case was discussed with nursing staff,
specialists, and care coordinators/case management. All labs and imaging personally reviewed by me. Remainder the time spent in detailed review of previous records, lab data, imaging, and other medical provider documentation.
Anticipated Discharge: Today
Subjective/Interval History
-
Date of Service: June 23, 2025
She is feeling well
Objective Data
-
Labs:
Laboratory Results
06/23/25
07:54
Sodium Pending
Potassium Pending
Chloride Pending
Carbon Dioxide Pending
BUN Pending
Creatinine Pending
Glucose Pending
Calcium Pending
Vital Signs:
Vital Signs
Temp Pulse Resp BP Pulse Ox
100.0 F 74 18 130/85 97
06/23/25 07:00 06/23/25 08:04 06/23/25 07:00 06/23/25 08:04 06/23/25 07:00
I&O
06/22/25 06/23/25 06/24/25
06:59 06:59 06:59
Intake Total 720 / 720 1080 / 1080
Balance 720 / 720 1080 / 1080
[2025-06-23 09:45] LABS: Blood Urea Nitrogen 7 mg/dl (7-17); Calcium 8.1 mg/dl (8.4-10.2); Carbon Dioxide 22 mmol/L (22-30); Chloride 115 mmol/L (98-107); Estimated Creatinine Clearance 102 ml/min; Glucose 86 mg/dl (70-99); Magnesium 1.6 mg/dl (1.6-2.3); Potassium 3.6 mmol/L (3.5-5.1); Sodium 140 mmol/L (135-145); eGFR > 60.00
--- NOTE | 2025-06-23 10:46 | CM ---
Call placed to Aubree Mike ) , [employer], requesting a call back and assistance with discharge plan. Update to JAYDE.
[2025-06-23 14:52] VITALS: BP 150/98
--- NOTE | 2025-06-23 16:45 | PTCARENOTE ---
Assumed care of patient at 1500. Nursing assessment completed and as documented. Patient inc of BM and urine, hygiene care provided x1 assist. Denies needs at this time. Call [facility] within reach, VSS, care ongoing.
[2025-06-23] MEDS: ZOLOFT 25 MG PO (21:12)
[2025-06-23 23:04] VITALS: BP 157/79
[2025-06-24 07:30] VITALS: BP 155/88
[2025-06-24] MEDS: VITAMIN B1 100 MG PO (08:15)
[2025-06-24] MEDS: FEOSOL 325 MG PO (08:15)
[2025-06-24] MEDS: FOLVITE 1 MG PO (08:15)
[2025-06-24] MEDS: MAGNESIUM OXIDE 400 MG PO ×2 (08:15→21:10)
[2025-06-24] MEDS: OSCAL CAL 500 500 MG PO ×2 (08:15→21:11)
[2025-06-24] MEDS: PROTONIX 40 MG PO (08:15)
[2025-06-24] MEDS: NORVASC 5 MG PO (08:15)
[2025-06-24] MEDS: DESENEX/MITRAZOL/ZEASORB 1 APPLIC TOPICAL ×2 (08:20→21:11)
--- NOTE | 2025-06-24 09:13 | CM ---
[employer]SI involved for no insurance.
Pt has provided information to apply for Medicaid.
Protective services involved message left for Aubree P [phone].
PT OT indicates SNF need.
SNF can not accept with out payor source,
Landlord/friend Talib said pt behind on rent and can not manage steps into apartment.
Texted case supervisor director concerning above
PLAN Needs SNF no SNF available with out payor source
--- NOTE | 2025-06-24 09:50 | W.PN.HOSP.TC ---
Today's Communication/Plan
-
dc planning
CM to help with dc
Assessment / Plan
Assessment / Plan
Physical Exam:
General: No Apparent Distress, Comfortable, Conversant, chronically ill looking, and Obese
HEENT: Normocephalic, Moist mucous membranes and Atraumatic
Respiratory: Clear; No Non Labored Respirations
Cardiac: S1/S2 and Regular Rhythm; No Murmur, Rub or Gallop
GI: Soft, Non Tender, Non Distended and Normal Bowel Sounds;
Rectal: no bleeding.
Genito-urinary: No hematuria
Musculoskeletal: No Clubbing, No Cyanosis and No Edema
Neuro: AAOX3, She follows commands. Nonfocal/grossly intact. Gait is weak in general and unsteady
Psych: Calm, pleasant.
A/p:
# Acute blood loss anemia
Hemoglobin stable around 8
Continue Protonix orally 40 mg p.o. daily
Continue oral ferrous sulfate
Need to follow-up with GI as outpatient
EGD & colonoscopy showed no clear source but diverticulosis noted
No active GI bleeding
c/w oral iron
s/p 3 units of RBCs.
Low folate, folate deficiency
Normal Vitamin B12
c/w PPI therapy
Appreciate GI input
Medically clear for discharge
Awaiting case management for discharge disposition
# Non-anion gap metabolic acidosis/LIAM, resolved/hyperchloremia:
Bicarb stable at 22. Stop bicarb supplementation.
Off IV fluids with bicarb and added oral sodium bicarb to finish course probably today
Nephrology consult appreciated
#Hypomagnesemia
c/w Mg supplement
# Hypokalemia
Repleted and stable at 3.5
# medical non - compliance
Lives alone, poor OP care, concern about living situation
consulted senior case manager. PT/OT, pt agreed to SNF. Per senior case manager [employer] involved to assist with insurance coverage for safe discharge disposition.
# Hypernatremia, s/p hypotonic IVF
Sodium normal back to 141
now encourage water intake
# Positive blood culture
Contaminant. Remains afebrile.
seemed contaminant
Repeat blood culture 06/07 , no growth
Urine culture is NGTD
Appreciate ID help
#acute kidney injury
Resolved.
#hypocalcemia c/w calcium and vitamin D supplements
# Skin picking disorder
Low dose Zoloft will help
#transaminitis
Overall improved
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
No signs of DT,
No abd pain
# Alcohol use disorder
Initially, patient denied alcohol intake but later said she would drink adult beverages including vodka/ wine 3-4 times a day. EMT reported empty vodka bottles at home. She remained AAOX3.
No signs of alcohol withdrawal. S/P high-dose thiamine
Continue thiamine and folic acid supplementation
Insomnia, given Ambien in the past.
Patient reported anxiety, insomnia, alcohol use. She agreed to use low dose Zoloft but she did not like how she felt, she could not fall asleep. Will try Remeron
# Traumatic rhabdomyolysis
s/p IV hydration as needed. Pain control as needed. Kidney function back to normal.
# Collection of leukocytosis, low blood pressure/hypotension, hypothermia, seemed sepsis/septic shock on admission. Sepsis ruled out, likely SIRS with organ dysfunction.
leukocytosis, resolved
Lactic: Negative
UA: Negative
Blood Cx: Negative
CXR: No acute issues
-s/p antibiotic Zosyn
#gait dysfunction, weakness, fall/ suspect non specific neuropathy, could be nutritional or alcohol related.
- consulted PT
- fall precautions
#hypertension
ARB and HCTZ was discontinued
Started on and continue calcium channel fozia, amlodipine 5 mg p.o. daily. Blood pressure stable on this regimen.
Code status: full code
DVT prophylaxis: SCDs
Total time spent on today's encounter was 35 minutes which included time spent in counseling the patient/family regarding diagnosis and treatment plan as listed above, goals of care, and symptom management. Case was discussed with nursing staff,
specialists, and care coordinators/case management. All labs and imaging personally reviewed by me. Remainder the time spent in detailed review of previous records, lab data, imaging, and other medical provider documentation.
Anticipated Discharge: Today
Subjective/Interval History
-
Date of Service: June 24, 2025
She did not like ZOloft , could not sleep
Objective Data
-
Vital Signs:
Vital Signs
Temp Pulse Resp BP Pulse Ox
98.4 F 83 18 155/88 97
06/24/25 07:30 06/24/25 07:30 06/24/25 07:30 06/24/25 08:15 06/24/25 07:30
I&O
06/23/25 06/24/25 06/25/25
06:59 06:59 06:59
Intake Total 1080 / 1080 940 / 940
Balance 1080 / 1080 940 / 940
[2025-06-24 14:53] VITALS: BP 158/105
[2025-06-24 16:00] VITALS: BP 158/90
[2025-06-24] MEDS: REMERON 7.5 MG PO (21:11)
[2025-06-24 23:00] VITALS: BP 152/84
[2025-06-25 08:00] VITALS: BP 137/85
[2025-06-25] MEDS: PROTONIX 40 MG PO (08:17)
[2025-06-25] MEDS: FOLVITE 1 MG PO (08:17)
[2025-06-25] MEDS: NORVASC 5 MG PO (08:17)
[2025-06-25] MEDS: MAGNESIUM OXIDE 400 MG PO ×2 (08:17→20:50)
[2025-06-25] MEDS: VITAMIN B1 100 MG PO (08:17)
[2025-06-25] MEDS: FEOSOL 325 MG PO (08:17)
[2025-06-25] MEDS: OSCAL CAL 500 500 MG PO ×2 (08:17→20:50)
[2025-06-25] MEDS: DESENEX/MITRAZOL/ZEASORB 1 APPLIC TOPICAL ×2 (08:22→20:50)
--- NOTE | 2025-06-25 09:53 | W.PN.HOSP.TC ---
Today's Communication/Plan
-
dc when bed is available
Assessment / Plan
Assessment / Plan
Physical Exam:
General: No Apparent Distress, Comfortable, Conversant, chronically ill looking, and Obese
HEENT: Normocephalic, Moist mucous membranes and Atraumatic
Respiratory: Clear; No Non Labored Respirations
Cardiac: S1/S2 and Regular Rhythm; No Murmur, Rub or Gallop
GI: Soft, Non Tender, Non Distended and Normal Bowel Sounds;
Rectal: no bleeding.
Genito-urinary: No hematuria
Musculoskeletal: No Clubbing, No Cyanosis and No Edema
Neuro: AAOX3, She follows commands. Nonfocal/grossly intact. Gait is weak in general and unsteady
Psych: Calm, pleasant.
A/p:
# Acute blood loss anemia
Hemoglobin stable around 8
Continue Protonix orally 40 mg p.o. daily
Continue oral ferrous sulfate
Need to follow-up with GI as outpatient
EGD & colonoscopy showed no clear source but diverticulosis noted
No active GI bleeding
c/w oral iron
s/p 3 units of RBCs.
Low folate, folate deficiency
Normal Vitamin B12
c/w PPI therapy
Appreciate GI input
Medically clear for discharge
Awaiting case management for discharge disposition
# Non-anion gap metabolic acidosis/LIAM, resolved/hyperchloremia: Resolved. Stopped bicarb supplementation.
Nephrology consult appreciated
#Hypomagnesemia
c/w Mg supplement
# Hypokalemia
Resolved.
# medical non - compliance
Lives alone, poor OP care, concern about living situation
consulted corrections caseworker. PT/OT, pt agreed to SNF. Per corrections caseworker [employer] involved to assist with insurance coverage for safe discharge disposition.
# Hypernatremia, s/p hypotonic IVF
Resolved.
# Positive blood culture
Contaminant. Remains afebrile.
seemed contaminant
Repeat blood culture 06/07 , no growth
Urine culture is NGTD
Appreciate ID help
#acute kidney injury
Resolved.
#hypocalcemia c/w calcium and vitamin D supplements
# Skin picking disorder
Remeron will help
#transaminitis
Overall improved
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
No signs of DT,
No abd pain
# Alcohol use disorder
Initially, patient denied alcohol intake but later said she would drink adult beverages including vodka/ wine 3-4 times a day. EMT reported empty vodka bottles at home. She remained AAOX3.
No signs of alcohol withdrawal. S/P high-dose thiamine
Continue thiamine and folic acid supplementation
Insomnia, given Ambien in the past.
Patient reported anxiety, insomnia, alcohol use. She agreed to use low dose Zoloft but she did not like how she felt, she could not fall asleep. Trial of Remeron seems to help, pt requested to c/w Remeron.
# Traumatic rhabdomyolysis
s/p IV hydration as needed. Pain control as needed. Kidney function back to normal.
# Collection of leukocytosis, low blood pressure/hypotension, hypothermia, seemed sepsis/septic shock on admission. Sepsis ruled out, likely SIRS with organ dysfunction.
leukocytosis, resolved
Lactic: Negative
UA: Negative
Blood Cx: Negative
CXR: No acute issues
-s/p antibiotic Zosyn
#Gait dysfunction, weakness, fall/ suspect non specific neuropathy, could be combination of nutritional and alcohol related. No back pain. No Pelvic numbness. Advised to f/w PCP for further work up.
- consulted PT
- fall precautions
#hypertension
ARB and HCTZ was discontinued
C/W amlodipine 5 mg p.o. daily. Blood pressure stable on this regimen.
Code status: full code
DVT prophylaxis: SCDs
Total time spent on today's encounter was 35 minutes which included time spent in counseling the patient/family regarding diagnosis and treatment plan as listed above, goals of care, and symptom management. Case was discussed with nursing staff,
specialists, and care coordinators/case management. All labs and imaging personally reviewed by me. Remainder the time spent in detailed review of previous records, lab data, imaging, and other medical provider documentation.
Anticipated Discharge: Today
Subjective/Interval History
-
Date of Service: June 25, 2025
No chest pain
No abdominal pain
No headache
No sob
She slept well with Remeron
Objective Data
-
Vital Signs:
Vital Signs
Temp Pulse Resp BP Pulse Ox
98.2 F 82 16 137/85 96
06/25/25 08:00 06/25/25 08:00 06/25/25 08:00 06/25/25 08:17 06/25/25 09:10
I&O
06/24/25 06/25/25 06/26/25
06:59 06:59 06:59
Intake Total 940 / 940 960 / 960
Balance 940 / 940 960 / 960
[2025-06-25 15:21] VITALS: BP 137/80
[2025-06-25] MEDS: REMERON 7.5 MG PO (20:50)
[2025-06-25 23:09] VITALS: BP 125/76
--- NOTE | 2025-06-26 07:11 | W.PN.HOSP.TC ---
Today's Communication/Plan
-
Psych eval. Discharge planning
Assessment / Plan
Assessment / Plan
Physical Exam:
General: No Apparent Distress, Comfortable, Conversant, chronically ill looking, and Obese
HEENT: Normocephalic, Moist mucous membranes and Atraumatic
Respiratory: Clear; No Non Labored Respirations
Cardiac: S1/S2 and Regular Rhythm; No Murmur, Rub or Gallop
GI: Soft, Non Tender, Non Distended and Normal Bowel Sounds;
Rectal: no bleeding.
Genito-urinary: No hematuria
Musculoskeletal: No Clubbing, No Cyanosis and No Edema
Neuro: AAOX3, She follows commands. Nonfocal/grossly intact. Gait is weak in general and unsteady
Psych: Calm, pleasant.
A/p:
# Acute blood loss anemia
Hemoglobin stable around 8 last time checked
Continue Protonix orally 40 mg p.o. daily
Continue oral ferrous sulfate
Need to follow-up with GI as outpatient
Will repeat hemoglobin in a.m.
EGD & colonoscopy showed no clear source but diverticulosis noted
No active GI bleeding
c/w oral iron
s/p 3 units of RBCs.
Low folate, folate deficiency
Normal Vitamin B12
c/w PPI therapy
Appreciate GI input
Medically clear for discharge
Awaiting case management for discharge disposition
# Non-anion gap metabolic acidosis/LIAM, resolved/hyperchloremia: Resolved. Stopped bicarb supplementation.
Nephrology consult appreciated
Repeat renal function & electrolytes in a.m.
#Hypomagnesemia
c/w Mg supplement
Recheck Mg in a.m.
# Hypokalemia
Resolved.
Recheck K in a.m.
# medical non - compliance
Lives alone, poor OP care, concern about living situation
consulted home health care case manager. PT/OT, pt agreed to SNF. Per home health care case manager [employer] involved to assist with insurance coverage for safe discharge disposition.
flower shop manager asked for psychiatry evaluation for medical capacity-discussed with psychiatry today.
# Hypernatremia, s/p hypotonic IVF
Resolved.
Recheck in a.m.
# Positive blood culture
Contaminant. Remains afebrile.
seemed contaminant
Repeat blood culture 06/07 , no growth
Urine culture is NGTD
Appreciate ID help
#acute kidney injury
Resolved.
Recheck renal function in a.m.
#hypocalcemia c/w calcium and vitamin D supplements
Recheck electrolytes tomorrow
# Skin picking disorder
Remeron started during his hospital stay-will follow-up psychiatry
#transaminitis
Overall improved
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
No signs of DT,
No abd pain
Repeat LFTs in a.m.
# Alcohol use disorder
Initially, patient denied alcohol intake but later said she would drink adult beverages including vodka/ wine 3-4 times a day. EMT reported empty vodka bottles at home. She remained AAOX3.
No signs of alcohol withdrawal. S/P high-dose thiamine
Continue thiamine and folic acid supplementation
Insomnia, given Ambien in the past.
Patient reported anxiety, insomnia, alcohol use. She agreed to use low dose Zoloft but she did not like how she felt, she could not fall asleep. Trial of Remeron seems to help, pt requested to c/w Remeron.
flower shop manager asked for psychiatry evaluation for medical capacity-discussed with psychiatry today. Will follow-up psychiatry input in terms of alcohol use disorder and depression as well
# Traumatic rhabdomyolysis
s/p IV hydration as needed. Pain control as needed. Kidney function back to normal.
# Collection of leukocytosis, low blood pressure/hypotension, hypothermia, seemed sepsis/septic shock on admission. Sepsis ruled out, likely SIRS with organ dysfunction.
leukocytosis, resolved
Lactic: Negative
UA: Negative
Blood Cx: Negative
CXR: No acute issues
-s/p antibiotic Zosyn
#Gait dysfunction, weakness, fall/ suspect non specific neuropathy, could be combination of nutritional and alcohol related. No back pain. No Pelvic numbness. Advised to f/w PCP for further work up.
- consulted PT
- fall precautions
#hypertension
ARB and HCTZ was discontinued
C/W amlodipine 5 mg p.o. daily. Blood pressure stable on this regimen.
Code status: full code
DVT prophylaxis: SCDs
Total time spent on today's encounter was 36 minutes which included time spent in counseling the patient/family regarding diagnosis and treatment plan as listed above, goals of care, and symptom management. Case was discussed with nursing staff,
specialists, and care coordinators/case management. All labs and imaging personally reviewed by me. Remainder the time spent in detailed review of previous records, lab data, imaging, and other medical provider documentation.
Anticipated Discharge: 24 - 48 hours
Subjective/Interval History
-
Date of Service: June 26, 2025
Patient does not voice any new complaints. She does mention if she is able to take 'less pills'.
Objective Data
-
Vital Signs:
Vital Signs
Temp Pulse Resp BP Pulse Ox
97.9 F 82 18 125/76 96
06/25/25 23:09 06/25/25 23:09 06/25/25 23:09 06/25/25 23:09 06/25/25 23:09
I&O
06/25/25 06/26/25 06/27/25
06:59 06:59 06:59
Intake Total 960 / 960 720 / 720
Balance 960 / 960 720 / 720
[2025-06-26 07:15] VITALS: BP 151/93
[2025-06-26] MEDS: OSCAL CAL 500 500 MG PO ×2 (07:55→21:22)
[2025-06-26] MEDS: MAGNESIUM OXIDE 400 MG PO ×2 (07:55→21:22)
[2025-06-26] MEDS: NORVASC 5 MG PO (07:55)
[2025-06-26] MEDS: PROTONIX 40 MG PO (07:56)
[2025-06-26] MEDS: FOLVITE 1 MG PO (07:56)
[2025-06-26] MEDS: FEOSOL 325 MG PO (07:56)
[2025-06-26] MEDS: VITAMIN B1 100 MG PO (07:56)
[2025-06-26] MEDS: DESENEX/MITRAZOL/ZEASORB 1 APPLIC TOPICAL ×2 (07:57→21:22)
[2025-06-26 11:19] VITALS: BP 159/88; PULSE 86; O2SAT 98
[2025-06-26 11:22] VITALS: BP 159/88; PULSE 86; O2SAT 98
--- NOTE | 2025-06-26 13:27 | CM ---
Patient seen at bedside
PT rec SNF
psychiatry consulted ?decison making capacity
[employer]SI involved to assist with insurance coverage
SNF can not accept with out payor source
Call placed to Aubree Mike ) [employer], requesting a call back and assistance with discharge plan
PLAN: TBD, Needs SNF no SNF available with out payor source
[2025-06-26 15:10] VITALS: BP 158/92
--- NOTE | 2025-06-26 16:10 | CS.PSYCHR ---
Consult Summary - Psychiatry
-
pt seen in consultation due to concern for decision-making capacity
59 yo woman brought to ED after being found down for an extended period of time. Reportedly [facility] on [facility] was concerned about ability to live on her own.
Denies prior psychiatric history. Acknowledges having had drinking problem in past but denies it it current (despite concerns raised by those who saw empty bottles in her apartment.) Medical history significant for gastric bypass and GI bleed.
Pt lives alone, states she has no family. but no children. Was raised in orphanages and foster care until brought to live with grandmother. at 20, soon . 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
[employer].
Has friends, enjoys watching TV.
Denies any need for assistance, states she can use wheelchair and walker to get around, was on the ground after slipping out of bed.
allergic to vicodin, lates, morphine pcn
does not know family history, but that parents could not raise her is of concern
On exam pt is lying in bed, awake and alert. cautious about answering questions, appears to be downplaying her alcohol use. does say 'that's over!' emphatically. no signs of psychosis, no gross cognitive impairment. insight and judgment limited but
present enough to permit decision making
Impression: Alcohol use disorder
Rec.: pt appears to have capacity for medical decision making, despite declining my suggestions of both physical and alcohol rehab
--- NOTE | 2025-06-26 17:40 | WOUNDNOTE ---
[facility] RN Note: Patient's L heel purple ecchymotic are almost resolved, faint red and intact, suspect more of a bruise, not a DTI. Sacral crease red r/t moisture. Patient incontinent urine of large amount of urine as per RN Lyudmila. Patient turned to R
semi side lying position. Patient requested heel relief boots. TruVue lite boots applied. Small foam turning wedge left in room. Discussed with RN Lyudmila.
--- NOTE | 2025-06-26 17:49 | WOUNDNOTE ---
[facility] RN Note: Patient's L heel purple ecchymotic are almost resolved, faint red and intact, suspect more of a bruise, not a DTI. Sacral crease red suspect r/t moisture and pressure (sacral stage 1 documented by nursing on admission). Patient
incontinent urine of large amount of urine as per RN Lyudmila. Patient turned to R semi side lying position. Patient requested heel relief boots. TruVue lite boots applied. Small foam turning wedge left in room. Discussed with RN Lyudmila. Dr. Atkinson approved
soft heel relief boots order.
[2025-06-26] MEDS: REMERON 7.5 MG PO (21:22)
[2025-06-26 23:28] VITALS: BP 128/78
[2025-06-27 07:55] VITALS: BP 139/83
[2025-06-27 08:01] LABS: Hematocrit 28.8 % (37.0-47.0); Hemoglobin 9.1 g/dL (12.0-16.0); Mean Corp Hgb Conc. 31.6 g/dL (33.0-37.0); Mean Corpuscular Volume 99.0 fL (81.0-99.0); Platelet Count 237 10^3/uL (130-400); Red Cell Dist. Width 20.6 % (11.5-14.5)
[2025-06-27 08:38] LABS: ALT (SGPT) 28 U/L (0-35); AST (SGOT) 56 U/L (14-36); Albumin 2.8 g/dl (3.5-5.0); Alkaline Phosphatase 154 U/L (38-126); Blood Urea Nitrogen 9 mg/dl (7-17); Calcium 8.6 mg/dl (8.4-10.2); Carbon Dioxide 24 mmol/L (22-30); Chloride 114 mmol/L (98-107); Estimated Creatinine Clearance 102 ml/min; Glucose 94 mg/dl (70-99); Magnesium 1.6 mg/dl (1.6-2.3); Potassium 3.7 mmol/L (3.5-5.1); Sodium 141 mmol/L (135-145); Total Protein 6.4 g/dl (6.3-8.2); eGFR > 60.00
--- NOTE | 2025-06-27 09:36 | CM ---
TC from contact, Talib ([facility]) stating patient called to tell him she was going to be discharged and he does not feel she is safe for d/c back home. JAYDE explained we are still working on a discharge plan. Talib also had his assistant attorney general on the phone
with him.
[2025-06-27] MEDS: MAGNESIUM OXIDE 400 MG PO ×2 (09:45→21:44)
[2025-06-27] MEDS: NORVASC 5 MG PO (09:45)
[2025-06-27] MEDS: FEOSOL 325 MG PO (09:45)
[2025-06-27] MEDS: FOLVITE 1 MG PO (09:45)
[2025-06-27] MEDS: VITAMIN B1 100 MG PO (09:46)
[2025-06-27] MEDS: DESENEX/MITRAZOL/ZEASORB 1 APPLIC TOPICAL ×2 (09:46→21:44)
[2025-06-27] MEDS: PROTONIX 40 MG PO (09:46)
[2025-06-27] MEDS: OSCAL CAL 500 500 MG PO ×2 (09:46→21:44)
--- NOTE | 2025-06-27 11:05 | W.PN.HOSP.TC ---
Today's Communication/Plan
-
Discharge disposition
Assessment / Plan
Assessment / Plan
Physical Exam:
General: No Apparent Distress, Comfortable, Conversant, chronically ill looking, and Obese
HEENT: Normocephalic, Moist mucous membranes and Atraumatic
Respiratory: Clear; No Non Labored Respirations
Cardiac: S1/S2 and Regular Rhythm; No Murmur, Rub or Gallop
GI: Soft, Non Tender, Non Distended and Normal Bowel Sounds;
Rectal: no bleeding.
Genito-urinary: No hematuria
Musculoskeletal: No Clubbing, No Cyanosis and No Edema
Neuro: AAOX3, She follows commands. Nonfocal/grossly intact. Gait is weak in general and unsteady
Psych: Calm, pleasant.
A/p:
# Acute blood loss anemia
Hemoglobin stable and today hemoglobin 9.1
Continue Protonix orally 40 mg p.o. daily
Continue oral ferrous sulfate
Need to follow-up with GI as outpatient
EGD & colonoscopy showed no clear source but diverticulosis noted
No active GI bleeding
c/w oral iron
s/p 3 units of RBCs.
Low folate, folate deficiency
Normal Vitamin B12
c/w PPI therapy
Appreciate GI input
Medically clear for discharge
Awaiting case management for discharge disposition
# Non-anion gap metabolic acidosis/LIAM, resolved/hyperchloremia: Resolved. Stopped bicarb supplementation.
Nephrology consult appreciated
Today creatinine 0.6 and electrolytes within normal limits
#Hypomagnesemia
c/w Mg supplement
Magnesium today within normal limits
# Hypokalemia
Resolved.
Potassium within normal limits today
# medical non - compliance
Lives alone, poor OP care, concern about living situation
consulted case finishing machine adjuster. PT/OT, pt agreed to SNF. Per case finishing machine adjuster [employer]SI involved to assist with insurance coverage for safe discharge disposition.
Psychiatry evaluated the patient and appreciate input
# Hypernatremia, s/p hypotonic IVF
Resolved.
Sodium today stable
# Positive blood culture
Contaminant. Remains afebrile.
seemed contaminant
Repeat blood culture 06/07 , no growth
Urine culture is NGTD
Appreciate ID help
#acute kidney injury
Resolved.
Renal function stable today
#hypocalcemia c/w calcium and vitamin D supplements
Electrolytes stable today
# Skin picking disorder
Remeron started during his hospital stay
#transaminitis
Overall improved
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
No signs of DT,
No abd pain
LFTs stable today
# Alcohol use disorder
Initially, patient denied alcohol intake but later said she would drink adult beverages including vodka/ wine 3-4 times a day. EMT reported empty vodka bottles at home. She remained AAOX3.
No signs of alcohol withdrawal. S/P high-dose thiamine
Continue thiamine and folic acid supplementation
Insomnia, given Ambien in the past.
Patient reported anxiety, insomnia, alcohol use. She agreed to use low dose Zoloft but she did not like how she felt, she could not fall asleep. Trial of Remeron seems to help, pt requested to c/w Remeron.
Psychiatry evaluated patient and appreciated input
# Traumatic rhabdomyolysis
s/p IV hydration as needed. Pain control as needed. Kidney function back to normal.
# Collection of leukocytosis, low blood pressure/hypotension, hypothermia, seemed sepsis/septic shock on admission. Sepsis ruled out, likely SIRS with organ dysfunction.
leukocytosis, resolved
Lactic: Negative
UA: Negative
Blood Cx: Negative
CXR: No acute issues
-s/p antibiotic Zosyn
#Gait dysfunction, weakness, fall/ suspect non specific neuropathy, could be combination of nutritional and alcohol related. No back pain. No Pelvic numbness. Advised to f/w PCP for further work up.
- consulted PT
- fall precautions
#hypertension
ARB and HCTZ was discontinued
C/W amlodipine 5 mg p.o. daily. Blood pressure stable on this regimen.
Code status: full code
DVT prophylaxis: SCDs
Total time spent on today's encounter was 35 minutes which included time spent in counseling the patient/family regarding diagnosis and treatment plan as listed above, goals of care, and symptom management. Case was discussed with nursing staff,
specialists, and care coordinators/case management. All labs and imaging personally reviewed by me. Remainder the time spent in detailed review of previous records, lab data, imaging, and other medical provider documentation.
Anticipated Discharge: 24 - 48 hours
Subjective/Interval History
-
Date of Service: June 27, 2025
No new complaints
Objective Data
-
Labs:
Laboratory Results
06/27/25
07:39
WBC 7.6
Hgb 9.1 L
Hct 28.8 L
Plt Count 237
Sodium 141
Potassium 3.7
Chloride 114 H
Carbon Dioxide 24
BUN 9
Creatinine 0.6
Glucose 94
Calcium 8.6
Total Bilirubin 0.7
AST 56 H
ALT 28
Alkaline Phosphatase 154 H
Vital Signs:
Vital Signs
Temp Pulse Resp BP Pulse Ox
98.5 F 68 18 139/83 98
06/27/25 07:55 06/27/25 07:55 06/27/25 07:55 06/27/25 07:55 06/27/25 07:55
I&O
06/26/25 06/27/25 06/28/25
06:59 06:59 06:59
Intake Total 720 / 720 1300 / 1300
Balance 720 / 720 1300 / 1300
--- NOTE | 2025-06-27 13:31 | W.PN.UPDATE ---
Update Note
Progress Note Update
pt seen for followup. Pleasant, cooperative. I asked about plans post discharge since CM reports pramodlorzayda reluctant to have her return home due to inability to manage. Pt states she spoke with him last night and they have an understanding. In good
spirits, does not want to go to rehab. Will consider returning to AA, downloaded luann to phone. Ok to continue remeron
[2025-06-27 15:03] VITALS: BP 126/79
--- NOTE | 2025-06-27 16:42 | CM ---
CM called Juju at [facility] - left message
Called Aubree Mike ) [employer] and left message requesting a call back and assistance with discharge plan.
Patient was seen by psychiatry yesterday - pt appears to have capacity for medical decision making
PLAN: PLAN: TBD, Needs SNF no SNF available with out payor source
[2025-06-27] MEDS: REMERON 7.5 MG PO (21:44)
[2025-06-27 23:18] VITALS: BP 133/68
[2025-06-28 07:23] VITALS: BP 133/75
[2025-06-28] MEDS: PROTONIX 40 MG PO (08:29)
[2025-06-28] MEDS: VITAMIN B1 100 MG PO (08:29)
[2025-06-28] MEDS: NORVASC 5 MG PO (08:29)
[2025-06-28] MEDS: FEOSOL 325 MG PO (08:30)
[2025-06-28] MEDS: MAGNESIUM OXIDE 400 MG PO (08:30)
[2025-06-28] MEDS: OSCAL CAL 500 500 MG PO (08:30)
[2025-06-28] MEDS: FOLVITE 1 MG PO (08:30)
[2025-06-28] MEDS: MOTRIN 200 MG PO (08:32)
[2025-06-28] MEDS: DESENEX/MITRAZOL/ZEASORB 1 APPLIC TOPICAL (08:34)
--- NOTE | 2025-06-28 08:44 | CM ---
Addendum entered by Chelly Rojas 06/28/25 14:40:
Patient accepted at [facility] today
Patient agreeable, she met with liastacie Hobson
tt hospitalist
PLAN: [facility] SNF
Report #: [phone]
Fax #: [phone]
transportation forms on chart
Addendum entered by Chelly Rojas 06/28/25 12:47:
referrals updated in careport
Addendum entered by Chelly Rojas 06/28/25 09:38:
spoke with Talib/tono will be on look out for packet in the mail for the patient from [facility]. Will call CM.
Addendum entered by Chelly Rojas 06/28/25 09:20:
spoke with Juju from [facility]-patient was approved for Medicaid - temp recipient # [id number]
Juju states she will be receiving a packet in the mail from [facility] Assistance office as she has to pick an insurance
spoke with Ngozi in Admissions who will speak with Juju and update the system reflecting this information
Left message with Sole (contact in [employer]
PLAN: SNF once insurance confirmed, CM to continue to follow up
Original Note:
CM spoke with Juju [facility] [phone]
Juju stated that she requested expedited medicaid ins - will follow up & get back to CM
CM await call from Aubree Mike ( [phone]) [employer].
PT rec SNF
PLAN: TBD, Needs SNF no SNF available with out payor source
--- NOTE | 2025-06-28 09:09 | CM ---
Spoke to Cyrus at [facility], patient was given a MA number [id number], effective 06/06/25. Per [facility] it may take until 07/05 before she is given a managed Medicaid plan. He stated the letter is normally entered to the patient at their home address. I made Cyrus
aware that the patient's land lord is in the process of evicting her, so she most likely will not receive the letter that is sent. He said they would put a note in their system and watch to see when it is sent and make us aware. Update to .
--- NOTE | 2025-06-28 11:11 | W.PN.HOSP.TC ---
Today's Communication/Plan
-
Discharge disposition
Assessment / Plan
Assessment / Plan
Physical Exam:
General: No Apparent Distress, Comfortable, Conversant, chronically ill looking, and Obese
HEENT: Normocephalic, Moist mucous membranes and Atraumatic
Respiratory: Clear; No Non Labored Respirations
Cardiac: S1/S2 and Regular Rhythm; No Murmur, Rub or Gallop
GI: Soft, Non Tender, Non Distended and Normal Bowel Sounds;
Rectal: no bleeding.
Genito-urinary: No hematuria
Musculoskeletal: No Clubbing, No Cyanosis and No Edema
Neuro: AAOX3, She follows commands. Nonfocal/grossly intact. Gait is weak in general and unsteady
Psych: Calm, pleasant.
A/p:
# Acute blood loss anemia
Hemoglobin stable and latest hemoglobin 9.1
Continue Protonix orally 40 mg p.o. daily
Continue oral ferrous sulfate
Need to follow-up with GI as outpatient
EGD & colonoscopy showed no clear source but diverticulosis noted
No active GI bleeding
c/w oral iron
s/p 3 units of RBCs.
Low folate, folate deficiency
Normal Vitamin B12
c/w PPI therapy
Appreciate GI input
Medically clear for discharge
Awaiting case management for discharge disposition
#Back pain
Musculoskeletal
Tylenol and NSAIDs but caution only temporarily
# Non-anion gap metabolic acidosis/LIAM, resolved/hyperchloremia: Resolved. Stopped bicarb supplementation.
Nephrology consult appreciated
latest creatinine 0.6 and electrolytes within normal limits
#Hypomagnesemia
c/w Mg supplement
Latest Magnesium within normal limits
# Hypokalemia
Resolved.
latest Potassium within normal limits
# medical non - compliance
Lives alone, poor OP care, concern about living situation
consulted egg caser. PT/OT, pt agreed to SNF. Per egg caser [employer]SI involved to assist with insurance coverage for safe discharge disposition.
Psychiatry evaluated the patient and appreciate input
# Hypernatremia, s/p hypotonic IVF
Resolved.
Latest Sodium stable
# Positive blood culture
Contaminant. Remains afebrile.
seemed contaminant
Repeat blood culture 06/07 , no growth
Urine culture is NGTD
Appreciate ID help
#acute kidney injury
Resolved.
latest Renal function stable
#hypocalcemia c/w calcium and vitamin D supplements
latest Electrolytes stable
# Skin picking disorder
Remeron started during his hospital stay
#transaminitis
Overall improved
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
No signs of DT,
No abd pain
Latest LFTs stable
# Alcohol use disorder
Initially, patient denied alcohol intake but later said she would drink adult beverages including vodka/ wine 3-4 times a day. EMT reported empty vodka bottles at home. She remained AAOX3.
No signs of alcohol withdrawal. S/P high-dose thiamine
Continue thiamine and folic acid supplementation
Insomnia, given Ambien in the past.
Patient reported anxiety, insomnia, alcohol use. She agreed to use low dose Zoloft but she did not like how she felt, she could not fall asleep. Trial of Remeron seems to help, pt requested to c/w Remeron.
Psychiatry evaluated patient and appreciated input
# Traumatic rhabdomyolysis
s/p IV hydration as needed. Pain control as needed. Kidney function back to normal.
# Collection of leukocytosis, low blood pressure/hypotension, hypothermia, seemed sepsis/septic shock on admission. Sepsis ruled out, likely SIRS with organ dysfunction.
leukocytosis, resolved
Lactic: Negative
UA: Negative
Blood Cx: Negative
CXR: No acute issues
-s/p antibiotic Zosyn
#Gait dysfunction, weakness, fall/ suspect non specific neuropathy, could be combination of nutritional and alcohol related. No back pain. No Pelvic numbness. Advised to f/w PCP for further work up.
- consulted PT
- fall precautions
#hypertension
ARB and HCTZ was discontinued
C/W amlodipine 5 mg p.o. daily. Blood pressure stable on this regimen.
Code status: full code
DVT prophylaxis: SCDs
Time spent 35 minutes
Anticipated Discharge: 24 - 48 hours
Subjective/Interval History
-
Date of Service: June 28, 2025
Patient complains of mild back pain and wants specifically NSAIDs. Afebrile
Objective Data
-
Vital Signs:
Vital Signs
Temp Pulse Resp BP Pulse Ox
98.2 F 71 18 133/75 97
06/28/25 07:23 06/28/25 08:29 06/28/25 07:23 06/28/25 08:29 06/28/25 07:23
I&O
06/27/25 06/28/25 06/29/25
06:59 06:59 06:59
Intake Total 1300 / 1300 960 / 960
Balance 1300 / 1300 960 / 960
--- NOTE | 2025-06-28 14:16 | W.DCSUMMARY ---
Discharge Summary
Discharge Data
Date of Admission: 06/06/25
Date of Discharge: 06/28/25
Total time spent discharging patient (in min): 37
-
Pending Results: No
Hospital Course
Patient 59 years old female with history of hypertension, dyslipidemia, alcohol use disorder, came into the hospital with poor functional status and fell at home unable to get up. She was found to have multiple abnormalities including LIAM,
transaminitis, hypocalcemia, hypothermia, leukocytosis and significant anemia concerns for GI bleed. GI consulted and she underwent endoscopy and colonoscopy and no obvious source of blood loss anemia was found. GI felt that her anemia was
multifactorial including alcoholism, poor nutrition, lack of bariatric vitamin and recommended follow-up with GI as outpatient. Patient also had blood transfusions. After transfusion her hemoglobin remained stable throughout the rest of the
hospital stay. Patient had blood cultures positive with Staphylococcus epidermidis and ID was consulted as well. ID felt this was contamination related and there was no need for antibiotic therapy. Patient remained afebrile and hemodynamically
stable. Due to her electrolyte abnormalities and LIAM nephrology was consulted as well. Patient received IV fluids and electrolyte replacement and bicarb as well. Ultimately nephrology recommended continue calcium and vitamin D supplementation.
Patient also was seen by psychiatry due to issues medical capacity but it was determined that she did not have capacity to make decisions. Patient participated with PT and OT who recommended SNF. Patient will be discharged to skilled facility
today.
Discharge duration: 37 minutes
Discharge Plan
-
Patient Disposition: Residential/SNF
Discharge Diagnosis/Procedures: Acute blood loss anemia. None anion gap metabolic acidosis. Acute kidney injury. Hypomagnesemia. Elevated liver function test. Alcohol use disorder.
Diet: Low Cholesterol
Activity: As tolerated
Blood Work: Please PCP to order CBC, BMP, and magnesium within 1 week
Activity Restrictions/Additional Instructions:
Wound Care Instructions
L knee wound-clean with saline, Xeroform gauze, silicone border foam, change daily and prn drainage until healed.
L heel-no sting barrier wipe (allow to dry), foam dressing, change q 3 days and prn loosened dressing.
Fiber filled soft heel relief boots (i.e. Reed Nicholas lite boots) as tolerated; Elevate heels off bed with pillow/s while boots off.
Encourage/assist as needed with frequent turning.
Air mattress.
Pressure redistributing chair cushion (i.e. Air chair cushion).
Follow up with wound geriatric care manager or at wound care center if needed, call for an appointment.
Referrals:
Raymond Hernandez MD [Family Provider, Internal Medicine] - in less than 1 week
Eddie Lock MD [Active, Gastroenterology] - in one month
Prescriptions:
New
pantoprazole 40 mg Tablet,Delayed Release (Dr/Ec)
40 mg PO DAILY 30 Days Qty: 30 0RF
thiamine mononitrate (vit B1) 100 mg Tablet
100 mg PO DAILY 30 Days Qty: 30 0RF
amlodipine [Norvasc] 2.5 mg tablet
2.5 mg PO DAILY Qty: 30 0RF
calcium carbonate 500 mg calcium (1,250 mg) Tablet
500 mg PO BID Qty: 60 0RF
ferrous sulfate [FeroSul] 325 mg (65 mg iron) Tablet
325 mg PO DAILY Qty: 30 0RF
folic acid 1 mg Tablet
1 mg PO DAILY Qty: 30 0RF
ergocalciferol (vitamin D2) [Vitamin D2] 1,250 mcg (50,000 unit) Capsule
1,250 mcg PO Q7D Qty: 4 0RF
lorazepam 0.5 mg Tablet
0.5 mg PO Q6HPRN PRN (Reason: Anxiety/insomnia) Qty: 4 0RF
mirtazapine 7.5 mg Tablet
7.5 mg PO HS 14 Days Qty: 14 0RF
Discontinued
losartan-hydrochlorothiazide 100-12.5 mg Tablet
1 tab PO HS
Patient Comments:
92/25; 90days supply filled 01/2025
Discharge Orders:
Discharge Patient (As Directed); Ordered 06/28/25
Ordered By: Luis Alfredo Atkinson
Discharge Date and Time
Print Language: IVORIAN
[2025-06-28 14:58] VITALS: BP 148/89; PULSE 76; O2SAT 98
[2025-06-28 14:59] VITALS: BP 148/89; PULSE 76; O2SAT 98
[2025-06-28 15:10] VITALS: BP 148/89
--- NOTE | 2025-06-28 19:26 | W.PN.UPDATE ---
Update Note
Progress Note Update
pt seen at bedside prior to transfer to rehab. again encouraged to consider treatment for alcohol use disorder; states she would consider use of naltrexone. continues to state that she can return to apt
== END 2025-06-28 18:06 | DRG 811 ==
LOC: 3 WEST ACU 15:30
PROVIDERS: Internal Medicine; Nurse Practitioner Adult Health; Nurse Practitioner Family; Physician Assistant; ADMITTING PHYSICIAN Internal Medicine; ATTENDING PHYSICIAN Hospitalist; CONSULT PHYSICIAN Internal Medicine Gastroenterology; CONSULT PHYSICIAN Psychiatry & Neurology Psychiatry; EMERGENCY PHYSICIAN Emergency Medicine; FAMILY PHYSICIAN Internal Medicine Geriatric Medicine; OTHER PHYSICIAN Internal Medicine Infectious Disease; OTHER PHYSICIAN Specialist
PROC: 30233N1 Transfusion of Nonautologous Red Blood Cells into Peripheral Vein, Percutaneous Approach (ICD-10-PCS; 2025-06-06)
PROC: 0DB98ZX Excision of Duodenum, Via Natural or Artificial Opening Endoscopic, Diagnostic (ICD-10-PCS; 2025-06-09)
PROC: 0DBA8ZX Excision of Jejunum, Via Natural or Artificial Opening Endoscopic, Diagnostic (ICD-10-PCS; 2025-06-09)
PROC: 0DJD8ZZ Inspection of Lower Intestinal Tract, Via Natural or Artificial Opening Endoscopic (ICD-10-PCS; 2025-06-09)
DX: D62 Acute posthemorrhagic anemia (principal); R65.11 Systemic inflammatory response syndrome (SIRS) of non-infectious origin with acute organ dysfunction; N17.9 Acute kidney failure, unspecified; E87.0 Hyperosmolality and hypernatremia; K90.9 Intestinal malabsorption, unspecified; R78.81 Bacteremia; E87.20 Acidosis, unspecified; T79.6XXA Traumatic ischemia of muscle, initial encounter; R62.7 Adult failure to thrive; M25.561 Pain in right knee; M25.562 Pain in left knee; I10 Essential (primary) hypertension; R68.0 Hypothermia, not associated with low environmental temperature; D72.829 Elevated white blood cell count, unspecified; D53.9 Nutritional anemia, unspecified; G47.00 Insomnia, unspecified; E83.51 Hypocalcemia; R74.01 Elevation of levels of liver transaminase levels; E78.00 Pure hypercholesterolemia, unspecified; M19.90 Unspecified osteoarthritis, unspecified site; B95.7 Other staphylococcus as the cause of diseases classified elsewhere; M54.30 Sciatica, unspecified side; J30.9 Allergic rhinitis, unspecified; K60.2 Anal fissure, unspecified; F10.10 Alcohol abuse, uncomplicated; K70.30 Alcoholic cirrhosis of liver without ascites; I83.90 Asymptomatic varicose veins of unspecified lower extremity; E83.42 Hypomagnesemia; R29.6 Repeated falls; K70.10 Alcoholic hepatitis without ascites; D69.6 Thrombocytopenia, unspecified; E87.6 Hypokalemia; L89.151 Pressure ulcer of sacral region, stage 1; E53.8 Deficiency of other specified B group vitamins; K57.30 Diverticulosis of large intestine without perforation or abscess without bleeding; E87.8 Other disorders of electrolyte and fluid balance, not elsewhere classified; W19.XXXA Unspecified fall, initial encounter; Y93.9 Activity, unspecified; Y92.002 Bathroom of unspecified non-institutional (private) residence as the place of occurrence of the external cause; Z60.2 Problems related to living alone; Z98.84 Bariatric surgery status; Z90.711 Acquired absence of uterus with remaining cervical stump; Z87.11 Personal history of peptic ulcer disease; Z88.0 Allergy status to penicillin; Z90.49 Acquired absence of other specified parts of digestive tract; Z88.5 Allergy status to narcotic agent; Z91.030 Bee allergy status; Z91.040 Latex allergy status; Z86.16 Personal history of COVID-19; Z87.891 Personal history of nicotine dependence; Z91.199 Patient's noncompliance with other medical treatment and regimen due to unspecified reason; Z91.81 History of falling
CPT/HCPCS: 70450; 71046; 74022; 76700; 80048; 80053; 80069; 80076; 81003; 81015; 82248; 82306; 82550; 82607; 82728; 82746; 82805; 83540; 83550; 83605; 83735; 83970; 84100; 85018; 85027; 85610; 86850; 86900; 86901; 86920; 87040; 87086; 87147; 87154; 87186; 87205; 88305; 88342; 93005; 96361; 96365; 96366; 96367; 96375; 97110; 97163; 97167; 97530; 97535; 99291; J7030; P9016